=== PATIENT | female | born 1950 | race Caucasian/White ===

== ENCOUNTER 2016-11-17 08:42 | Outpatient (CLI) | payer MEDICARE, BC ==
[2016-11-17] MEDS ORDERED: IOPAMIDOL-300 100 ML VIAL IVP ONE (10:26)
== END 2016-11-17 08:43 | disposition home or self-care (01) ==
DX: C85.99 Non-Hodgkin lymphoma, unspecified, extranodal and solid organ sites (principal); R59.1 Generalized enlarged lymph nodes; R16.1 Splenomegaly, not elsewhere classified; R91.8 Other nonspecific abnormal finding of lung field
CPT/HCPCS: 36415; 71260; 74177; 82565; Q9967

== ENCOUNTER 2016-11-27 12:51 | Outpatient (CLI) | payer MEDICARE, BC | END 2016-11-27 12:52 | disposition home or self-care (01) | DX: C83.19 Mantle cell lymphoma, extranodal and solid organ sites (principal) ==

== ENCOUNTER 2016-11-30 10:01 | Day surgery (SDC) | payer MEDICARE, BC ==
[2016-11-30] MEDS ORDERED: LACTATED RINGERS 1,000 ML IV ONE ×2 (10:18→12:20)
[2016-11-30] MEDS ORDERED: ONDANSETRON 4 MG/2 ML VIAL IVP ONE (12:00)
[2016-11-30] MEDS ORDERED: MIDAZOLAM 2 MG/2 ML VIAL IVP ONE (12:00)
[2016-11-30] MEDS ORDERED: ceFAZolin 1 GM VIAL IV ONE (12:00)
[2016-11-30] MEDS ORDERED: PROPOFOL 200 MG/20 ML VIAL IVP ONE (12:00)
[2016-11-30] MEDS ORDERED: LIDOCAINE-MPF 2% 5 ML VIAL IM ONE (12:00)
[2016-11-30] MEDS ORDERED: fentaNYL 100 MCG/2 ML VIAL IVP ONE (12:00)
[2016-11-30] MEDS ORDERED: LIDOCAINE 1% 50 ML MDV SUBQ ONE (12:39)
[2016-11-30] MEDS ORDERED: BUPIVACAINE 0.5%-EPI 1:200000 PF 30 ML VIAL SUBQ ONE (12:39)
== END 2016-11-30 10:02 | disposition home or self-care (01) ==
PROC: 02HV33Z Insertion of Infusion Device into Superior Vena Cava, Percutaneous Approach (ICD-10-PCS; 2016-11-30)
PROC: B548ZZA Ultrasonography of Superior Vena Cava, Guidance (ICD-10-PCS; 2016-11-30)
PROC: 0JH60XZ Insertion of Tunneled Vascular Access Device into Chest Subcutaneous Tissue and Fascia, Open Approach (ICD-10-PCS; principal; 2016-11-30 11:10)
DX: C85.99 Non-Hodgkin lymphoma, unspecified, extranodal and solid organ sites (principal); Z88.0 Allergy status to penicillin; K21.9 Gastro-esophageal reflux disease without esophagitis; Z96.651 Presence of right artificial knee joint; Z87.891 Personal history of nicotine dependence; E66.9 Obesity, unspecified; Z68.37 Body mass index [BMI] 37.0-37.9, adult
CPT/HCPCS: 36561; 71010; C1788; J7120

== ENCOUNTER 2017-05-31 08:44 | Outpatient (CLI) | payer MEDICARE, BC ==
--- NOTE | 2017-06-01 09:24 | Nuclear Medicine Report ---
EXAM: RADIONUCLIDE VENTRICULOGRAM (MUGA) WITH EJECTION FRACTION CALCULATION EXAM DATE: 05/31/2017 09:36 AM. CLINICAL HISTORY: Lymphoma. Evaluate cardiac function related to chemotherapy. COMPARISON: CT 11/17/2016 TECHNIQUE: Patient's own red blood cells were labeled with 26.7 mCi technetium 99m sodium pertechneta te according to the department protocol. Following the radiolabeling procedure, equilibrium gated dyn amic imaging of the myocardium was acquired from standard projections. FINDINGS: The right and left ventricles contract in a normal segmental and global fashion. The restin g left ventricular ejection fraction is calculated to be 54%. This finding is confirmed with visual a nalysis. IMPRESSION: Normal MUGA study with ejection fraction 54%. [facility] Referring Provider Line: [phone] SITE ID: [id number]
== END 2017-05-31 08:45 | disposition home or self-care (01) ==
LOC: DI 08:44
PROVIDERS: ATTEND Internal Medicine Hematology & Oncology
DX: C85.90 Non-Hodgkin lymphoma, unspecified, unspecified site (principal)
CPT/HCPCS: 78472; A9512; A9538

== ENCOUNTER 2017-06-01 13:17 | Outpatient (CLI) | payer MEDICARE, BC | END 2017-06-01 13:18 | disposition home or self-care (01) | LOC: RT 13:17 | PROVIDERS: ATTEND Internal Medicine Hematology & Oncology | DX: C85.90 Non-Hodgkin lymphoma, unspecified, unspecified site (principal) | CPT/HCPCS: 94010 ==

== ENCOUNTER 2018-04-28 10:46 | Emergency (ER) | payer MEDICARE, BC ==
[2018-04-28 11:42] LABS: BILIRUBIN,URINE NEGATIVE (NEGATIVE); GLUCOSE, URINE (UA) NEGATIVE (NEGATIVE); KETONES,URINE (UA) NEGATIVE (NEGATIVE); LEUKOCYTE ESTERASE, URINE NEGATIVE (NEGATIVE); NITRITE,URINE NEGATIVE (NEGATIVE); OCCULT BLOOD,URINE TRACE-LYSE (NEGATIVE); PROTEIN,URINE TRACE mg/dL (NEGATIVE); UROBILINOGEN,URINE 0.2 (NORMAL) E.U./dL (NORMAL)
[2018-04-28 11:43] LABS: CLARITY,URINE CLEAR (CLEAR)
[2018-04-28 11:57] LABS: BASOPHILS % (AUTO) 0.7 %; EOSINOPHILS % (AUTO) 1.6 %; HGB - HEMOGLOBIN 9.6 g/dL (12.0-16.0); MEAN CORPUSCULAR HEMOGLOBIN 35.5 pg (27.0-31.0); MEAN CORPUSCULAR HGB CONC 34.9 g/dL (32.0-36.0); MEAN CORPUSCULAR VOLUME 101.7 fL (81.0-99.0); MEAN PLATELET VOLUME 8.2 fL (7.9-10.8); MONOCYTES % (AUTO) 9.1 %; NEUTROPHILS % (AUTO) 76.6 %; PLT - PLATELET COUNT 200 10^3/uL (130-450); RED BLOOD COUNT 2.69 10^6/uL (4.20-5.40); RED CELL DISTRIBUTION WIDTH 12.5 % (12.0-15.0); WHITE BLOOD COUNT 2.7 x10^3/uL (4.8-10.8)
[2018-04-28 12:08] LABS: ALBUMIN/GLOBULIN RATIO 0.8 (1.0-2.2); BILIRUBIN,TOTAL 0.6 mg/dL (0.2-1.0); CALCIUM 8.8 mg/dL (8.5-10.3); CREATININE 0.9 mg/dL (0.4-1.0); TOTAL PROTEIN 6.7 g/dL (6.7-8.2)
[2018-04-28 12:19] LABS: ABNORMAL LYMPHS % (MANUAL) 0 %; PLATELET ESTIMATE, MANUAL NORMAL (130-450,000) (NORMAL); PLATELET MORPHOLOGY NORMAL APPEARANCE (NORMAL); RBC MORPHOLOGY (MULTIPLE) 1+ HYPOCHROMASIA (NORMAL)
[2018-04-28 12:20] LABS: BAND NEUTROPHILS % (MANUAL) 10 %; DIFFERENTIAL COMMENT MANUAL DIFFERENTIAL; LYMPHOCYTES # (MANUAL) 0.3 10^3/uL (1.5-3.5); LYMPHOCYTES % (MANUAL) 11 %; METAMYELOCYTES % (MANUAL) 2 %; MONOCYTES # (MANUAL) 0.3 10^3/uL (0.0-1.0); NEUTROPHILS % (MANUAL) 65 %
--- NOTE | 2018-04-28 12:29 | ED Physician Documentation ---
History of Present Illness - Stated complaint Stated Complaint: FEVER - Chief complaint Chief Complaint: Fever - Additonal information Additional information: hx from pt and EMR 68 f mantle cell lymphoma stem cell transplant 9 m ago on q3m chemo last week seen in MAC and had elev LFT and dec PO and had RUQ sono and GI consult ordered, does not drink takes apap as needed but not excessively also chronic diarrhea and stool cx were neg now to ER with fever X 1 week tmax 101.9 slight cough continued NV and diarrhea no skin lesions no travel Review of Systems Constitutional: reports: Fever. denies: Chills Cardiac: denies: Chest pain / pressure Respiratory: reports: Cough. 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 HEENT: Cataracts, Tonsil/Adenoidectomy - Present Medications Home Medications: Ambulatory Orders Medication Instructions Recorded Confirmed Valacyclovir HCl [Valtrex] 500 mg PO BID 01/02/17 03/10/18 Loperamide [Imodium] 1 cap PO PRN PRN 09/16/17 03/10/18 raNITIdine [Zantac] 150 mg PO BID 09/17/17 03/10/18 B12/Levomefolate Calcium/B-6 1,000 mcg PO DAILY 12/10/17 03/10/18 [Iwkcs-Djgnzhpfzm-Kbgflbpam Tb] Cholecalciferol (Vitamin D3) 2,000 units PO DAILY 12/10/17 03/10/18 [Vitamin D3] - Allergies Allergies/Adverse Reactions: Allergies Allergy/AdvReac Type Severity Reaction Status Date / Time No Known Drug Allergies Allergy Verified 04/28/18 11:08 - Social History Does the pt smoke?: No Smoking Status: Never smoker Does the pt drink ETOH?: Yes Does the pt have substance abuse?: No - Immunizations Immunizations are current?: No Immunizations: TDAP >10years/unknown - POLST Patient has POLST: No PD ED PE NORMAL - Vitals Vital signs reviewed: Yes - General General: Alert and oriented X 3 - HEENT HEENT: PERRL, Ears normal - Neck Neck: Supple, no meningeal sign - Cardiac Cardiac: RRR - Respiratory Respiratory: No respiratory distress, Clear bilaterally - Abdomen Abdomen: Soft, Non tender - Derm Derm: Normal color, No rash, Other (small abrason sole R foot s infection, port site s erythema) - Extremities Extremities: No deformity, Normal ROM s pain - Neuro Neuro: Alert and oriented X 3 Results - Vitals Vitals: Vital Signs - 24 hr 04/28/18 04/28/18 11:03 16:16 Temperature 36.4 C L 37.0 C Heart Rate 67 81 Respiratory 18 14 Rate Blood Pressure 117/65 104/65 O2 Saturation 94 96 Oxygen O2 Source Room air - Labs Labs: Laboratory Tests 04/28/18 04/28/18 04/28/18 11:15 11:38 11:40 WBC 2.7 L RBC 2.69 L Hgb 9.6 L Hct 27.4 L MCV 101.7 H MCH 35.5 H MCHC 34.9 RDW 12.5 Plt Count 200 MPV 8.2 Neut # (Auto) Not Reportable Lymph # (Auto) Not Reportable [place] # (Auto) Not Reportable Eos # (Auto) Not Reportable Baso # (Auto) Not Reportable Absolute Nucleated RBC Not Reportable Total Counted 100 Band Neuts % (Manual) 10 Abnorm Lymph % (Manual) 0 Metamyelocytes % 2 H Nucleated RBC % Not Reportable Neutrophils # (Manual) 2.0 Lymphocytes # (Manual) 0.3 L Monocytes # (Manual) 0.3 Eosinophils # (Manual) 0.0 Basophils # (Manual) 0.0 Differential Comment MANUAL DIFFERENTIAL Manual Slide Review Indicated Platelet Estimate NORMAL (130-450,000) Platelet Morphology NORMAL APPEARANCE RBC Morph Micro Appear 1+ HYPOCHROMASIA Sodium Potassium Chloride Carbon Dioxide Anion Gap BUN Creatinine Estimated GFR (MDRD) Glucose Lactic Acid 0.8 Calcium Total Bilirubin AST ALT Alkaline Phosphatase Total Protein Albumin Globulin Albumin/Globulin Ratio Lipase Urine Color DARK YELLOW Urine Clarity CLEAR Urine pH 5.0 Ur Specific [place] 1.020 Urine Protein TRACE Urine Glucose (UA) NEGATIVE Urine Ketones NEGATIVE Urine Occult Blood TRACE-LYSE Urine Nitrite NEGATIVE Urine Bilirubin NEGATIVE Urine Urobilinogen 0.2 (NORMAL) Ur Leukocyte Esterase NEGATIVE Ur Microscopic Review NOT INDICATED Urine Culture Comments NOT INDICATED Acetaminophen 04/28/18 04/28/18 11:40 11:40 WBC RBC Hgb Hct MCV MCH MCHC RDW Plt Count MPV Neut # (Auto) Lymph # (Auto) [place] # (Auto) Eos # (Auto) Baso # (Auto) Absolute Nucleated RBC Total Counted Band Neuts % (Manual) Abnorm Lymph % (Manual) Metamyelocytes % Nucleated RBC % Neutrophils # (Manual) Lymphocytes # (Manual) Monocytes # (Manual) Eosinophils # (Manual) Basophils # (Manual) Differential Comment Manual Slide Review Platelet Estimate Platelet Morphology RBC Morph Micro Appear Sodium 135 Potassium 3.9 Chloride 101 Carbon Dioxide 23 Anion Gap 11.0 BUN 16 Creatinine 0.9 Estimated GFR (MDRD) 62 L Glucose 105 H Lactic Acid Calcium 8.8 Total Bilirubin 0.6 AST 98 H ALT 90 H Alkaline Phosphatase 357 H Total Protein 6.7 Albumin 3.0 L Globulin 3.7 Albumin/Globulin Ratio 0.8 L Lipase 35 Urine Color Urine Clarity Urine pH Ur Specific [place] Urine Protein Urine Glucose (UA) Urine Ketones Urine Occult Blood Urine Nitrite Urine Bilirubin Urine Urobilinogen Ur Leukocyte Esterase Ur Microscopic Review Urine Culture Comments Acetaminophen 12 - Rads (name of study) CXR Radiology: See rad report (unchanged from prior, no new airspace dz) ruq sono Radiology: See rad report (s/p son no acute process) PD MEDICAL DECISION MAKING - ED course ED course: chemo pt s/p stem cell transplant fever X 1 week ANC 2 no source found on exam and wup - port s infection/ulcer , no skin infection, no pna, no UTI, elev LFTs but no GB and neg RUQ sono blood cx pending will d/w onc re empiric ab unclear why elev LFTs - n ruq sono, therapeutic apap level, does not drink, could be adverse rxn to rituxan - will d/w onc as well d/w Dr Jones oncology - recommend no ab at this time as no source has been identified, wait on blood cultures, add c diff as that stool cx was not run last week with others, and for the elev LFTs he does not thin k 2/2 rituxan and rec pt follow up with GI consult as planned, no apap or EtOH - Sepsis Event Vital Signs: Vital Signs - 24 hr 04/28/18 04/28/18 11:03 16:16 Temperature 36.4 C L 37.0 C Heart Rate 67 81 Respiratory 18 14 Rate Blood Pressure 117/65 104/65 O2 Saturation 94 96 Oxygen O2 Source Room air Departure - Departure Disposition: 01 Home, Self Care Clinical Impression: Elevated LFTs Fever Qualifiers: Fever type: unspecified Qualified Code(s): R50.9 - Fever, unspecified Condition: Good Instructions: ED Fever Unconf Cause Follow-Up: Selena Ely MD [Primary Care Provider] - Valentín Jones MD [Physician No Access] - Comments: No source/cause for the fever has been identified on todays workup - no port infection, no pneumonia, no UTI, no liver abscess, no skin ulcer or infection. Blood cultures are running and should be resulted in a few days. Your liver function tests are still elevated - but it is unclear why - the ultrasound is fine, your gallbladder has been removed already, you do not take excessive tylenol and don't drink alcohol. I discussed everything with your oncologist Dr Jones - he advises not to start antibiotics unless the cultures are positive and that you follow up with GI as planned for further evaluation of the elevated liver tests. He also would like to run some more tests on the diarrhea so please collect a sample and bring it to the lab and the [facility] can submit the order for a c- difficile test as an outpatient. Avoid all tylenol and alcohol until the cause of the liver test abnormalities is figured out Also you are anemic again - this is not new but is a little worse than before and so follow up with Dr Jones/[facility] for another count in about a week is important Discharge Date/Time: 04/28/18 16:19
--- NOTE | 2018-04-28 14:01 | Ultrasound Report ---
Procedure Date: 04/28/2018 Accession Number: [id number] / [id number] Procedure: US - Abdomen Limited CPT Code: FULL RESULT: EXAM: Abdomen Limited DATE: 04/28/2018 1:24 PM CLINICAL HISTORY: Fever, elevated liver function tests, status post cholecystectomy. TECHNIQUE: Real time scanning by the hop trainer was saved static images reviewed COMPARISON: 11/17/2016 CT FINDINGS: Liver measures 17 cm longitudinally. 2 small echogenic foci are noted in the right lobe, most likely hemangiomas, one measuring 1.3 x 1 x 1.2 cm and the other 1.2 x 1 x 1 cm. Normal directional portal venous blood flow. Gallbladder is surgically absent. Common bile duct 8 mm. Right kidney 10.7 cm in length. Normal echotexture. Free fluid: None IMPRESSION: Status post cholecystectomy. No acute findings seen in the right upper quadrant.
--- NOTE | 2018-04-28 14:23 | XRAY Report ---
Procedure Date: 04/28/2018 Accession Number: [id number] / [id number] Procedure: XR - Chest 2 View X-Ray CPT Code: 63519 FULL RESULT: EXAM: CHEST RADIOGRAPHY EXAM DATE: 04/28/2018 01:56 PM. CLINICAL HISTORY: Fever cough. COMPARISON: 11/30/2016. TECHNIQUE: 2 views. FINDINGS: Lungs/Pleura: There is mild lower lobe airway thickening with mild pulmonary vascular congestion. These findings appear unchanged. There is improved aeration of the left mid lung with no new airspace disease. Negative for pleural effusion and pneumothorax. Mediastinum: The heart size is normal. There is a right-sided Port-A-Cath with tip at the cavoatrial junction. Other: None. IMPRESSION: No focal or new airspace disease to suggest pneumonia. Airway thickening could reflect chronic bronchial inflammation. [facility]
[2018-04-28 16:18] VITALS: BP 104/65
== END 2018-04-28 16:19 | disposition home or self-care (01) ==
LOC: ED 10:46
DX: R50.9 Fever, unspecified (principal); R94.5 Abnormal results of liver function studies; C83.10 Mantle cell lymphoma, unspecified site; Z79.899 Other long term (current) drug therapy; K21.9 Gastro-esophageal reflux disease without esophagitis
CPT/HCPCS: 36415; 71046; 76705; 80053; 80307; 81001; 81003; 83605; 83690; 85025; 87040; 87086; 96374; 99283

== ENCOUNTER 2018-05-05 11:27 | Inpatient (IN) | payer MEDICARE, BC ==
--- NOTE | 2018-05-05 12:12 | XRAY Report ---
Procedure Date: 05/05/2018 Accession Number: [id number] / [id number] Procedure: XR - Chest 2 View X-Ray CPT Code: 25157 FULL RESULT: EXAM: CHEST RADIOGRAPHY EXAM DATE: 05/05/2018 12:06 PM. CLINICAL HISTORY: SOA. COMPARISON: 04/28/2018. TECHNIQUE: 2 views. FINDINGS: Lungs/Pleura: Moderate increased bilateral lower lung infiltrates, right greater left and diffuse vascular and interstitial prominence. No pleural effusion. No pneumothorax. Mediastinum: Heart and mediastinal contours are unremarkable. Other: Stable central venous port. Degenerative disease of the spine redemonstrated. IMPRESSION: Moderate interval increased bilateral lower lung infiltrates, right greater left and diffuse vascular and interstitial prominence. [facility]
--- NOTE | 2018-05-05 12:40 | ED Physician Documentation ---
PD HPI DYSPNEA - Stated complaint Stated Complaint: SOA - Chief complaint Chief Complaint: Resp - History obtained from History obtained from: Patient, Friend - History of Present Illness Timing - onset: Other (She had an autologous stem cell transplant 10 mos ago at [facility] for Mantle Cell lymphoma. Had a slow improvement after with low blood counts, but was improving. Now with decline over 3 weeks with dyspnea. 1 week ago had low grade fevers to 101. Increasing dyspnea and used oxygen at home (son 's- he has cluster headaches). Had clear CXR last week and started coughing since, a dry cough.) Review of Systems Ten Systems: 10 systems reviewed and negative Constitutional: reports: Fever, Chills Ears: denies: Loss of hearing, Ear pain Nose: denies: Rhinorrhea / runny nose Throat: denies: Sore throat Cardiac: denies: Chest pain / pressure, Palpitations Respiratory: reports: Dyspnea, Cough GI: denies: Abdominal Pain, Nausea, Vomiting PD PAST MEDICAL HISTORY - Past Medical History Past Medical History: Yes Cardiovascular: None Respiratory: None Endocrine/Autoimmune: None GI: GERD, Chronic diarrhea : None HEENT: None Psych: None Musculoskeletal: None Derm: None Other Past Medical History: pt states she had a stem cell transplant 10 months ago for lymphoma, is anemic and feels her sob is from this. 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 HEENT: Cataracts, Tonsil/Adenoidectomy - Present Medications Home Medications: Ambulatory Orders Medication Instructions Recorded Confirmed Valacyclovir HCl [Valtrex] 500 mg PO BID 01/02/17 03/10/18 Loperamide [Imodium] 1 cap PO PRN PRN 09/16/17 03/10/18 raNITIdine [Zantac] 150 mg PO BID 09/17/17 03/10/18 B12/Levomefolate Calcium/B-6 1,000 mcg PO DAILY 12/10/17 03/10/18 [Kntdt-Zivuygelrv-Kavtzefip Tb] Cholecalciferol (Vitamin D3) 2,000 units PO DAILY 12/10/17 03/10/18 [Vitamin D3] - Allergies Allergies/Adverse Reactions: Allergies Allergy/AdvReac Type Severity Reaction Status Date / Time No Known Drug Allergies Allergy Verified 06/25/18 11:39 - Social History Does the pt smoke?: No Smoking Status: Former smoker Does the pt drink ETOH?: Yes Does the pt have substance abuse?: No - Immunizations Immunizations are current?: No Immunizations: TDAP >10years/unknown - POLST Patient has POLST: No PD ED PE NORMAL - Vitals Vital signs reviewed: Yes (hypoxic, low diastolic) - General General: Alert and oriented X 3, No acute distress - HEENT HEENT: PERRL, EOMI - Neck Neck: Supple, no meningeal sign, No bony TTP - Cardiac Cardiac: RRR, No murmur - Respiratory Respiratory: No respiratory distress, Other (diminished R base) - Abdomen Abdomen: Soft, Non tender - Back Back: No CVA TTP, No spinal TTP - Derm Derm: Normal color, Warm and dry - Extremities Extremities: No edema, No calf tenderness / cord - Neuro Neuro: Alert and oriented X 3, Normal speech - Psych Psych: Normal mood, Normal affect Results - Vitals Vitals: Vital Signs - 24 hr 05/05/18 05/05/18 05/05/18 11:35 11:43 12:02 Temperature 36.6 C Heart Rate 84 72 Respiratory 20 28 H Rate Blood Pressure 123/55 L 117/58 L O2 Saturation 85 L 93 92 Oxygen O2 Source Nasal cannula Oxygen Flow Rate 2 - EKG (time done) 1140 Rate: Rate (enter#) (74) Rhythm: NSR [place]: Normal Intervals: RBBB (incomplete) QRS: LVH Ischemia: Normal ST segments Computer interpretation: Agree with computer - Labs Labs: Laboratory Tests 05/05/18 05/05/18 05/05/18 12:22 12:22 12:22 WBC 1.9 L* RBC 2.37 L Hgb 8.1 L Hct 23.7 L MCV 100.0 H MCH 34.4 H MCHC 34.4 RDW 13.4 Plt Count 245 MPV 8.4 Neut # (Auto) Not Reportable Lymph # (Auto) Not Reportable [place] # (Auto) Not Reportable Eos # (Auto) Not Reportable Baso # (Auto) Not Reportable Absolute Nucleated RBC Not Reportable Total Counted 100 Band Neuts % (Manual) 15 H Abnorm Lymph % (Manual) 2 Metamyelocytes % 3 H Myelocytes % 1 H Nucleated RBC % Not Reportable Neutrophils # (Manual) 1.5 Lymphocytes # (Manual) 0.2 L Monocytes # (Manual) 0.1 Eosinophils # (Manual) 0.0 Basophils # (Manual) 0.0 Differential Comment MANUAL DIFFERENTIAL Manual Slide Review Indicated Platelet Estimate NORMAL (130-450,000) Platelet Morphology NORMAL APPEARANCE RBC Morph Micro Appear 1+ POLYCHROMASIA Sodium 138 Potassium 3.9 Chloride 105 Carbon Dioxide 22 Anion Gap 11.0 BUN 24 H Creatinine 1.0 Estimated GFR (MDRD) 55 L Glucose 123 H Lactic Acid Calcium 9.4 Total Bilirubin 0.9 AST 133 H ALT 136 H Alkaline Phosphatase 670 H Troponin I < 0.04 Total Protein 6.1 L Albumin 2.5 L Globulin 3.6 Albumin/Globulin Ratio 0.7 L Lipase 28 05/05/18 13:00 WBC RBC Hgb Hct MCV MCH MCHC RDW Plt Count MPV Neut # (Auto) Lymph # (Auto) [place] # (Auto) Eos # (Auto) Baso # (Auto) Absolute Nucleated RBC Total Counted Band Neuts % (Manual) Abnorm Lymph % (Manual) Metamyelocytes % Myelocytes % Nucleated RBC % Neutrophils # (Manual) Lymphocytes # (Manual) Monocytes # (Manual) Eosinophils # (Manual) Basophils # (Manual) Differential Comment Manual Slide Review Platelet Estimate Platelet Morphology RBC Morph Micro Appear Sodium Potassium Chloride Carbon Dioxide Anion Gap BUN Creatinine Estimated GFR (MDRD) Glucose Lactic Acid 0.7 Calcium Total Bilirubin AST ALT Alkaline Phosphatase Troponin I Total Protein Albumin Globulin Albumin/Globulin Ratio Lipase - Rads (name of study) 2v chest Radiology: EMP read contemporaneously (R>L bilateral lower infiltrates) PD MEDICAL DECISION MAKING - ED course ED course: 68yo woman with H/O SCXplant and now increasing weakness and cough/hypoxemia. Has bibasilar PNA. Also continues to have increased liver enzymes. Spoke with Dr Hodge for admit 1330 - Sepsis Event Vital Signs: Vital Signs - 24 hr 05/05/18 05/05/18 05/05/18 11:35 11:43 12:02 Temperature 36.6 C Heart Rate 84 72 Respiratory 20 28 H Rate Blood Pressure 123/55 L 117/58 L O2 Saturation 85 L 93 92 Oxygen O2 Source Nasal cannula Oxygen Flow Rate 2 Departure - Departure Disposition: 66 [facility] DC/Xfer Clinical Impression: Hypoxemia Pneumonia Qualifiers: Pneumonia type: due to unspecified organism Laterality: bilateral Lung location : lower lobe of lung Qualified Code(s): J18.1 - Lobar pneumonia, unspecified organism Condition: Serious
[2018-05-05] MEDS ORDERED: cefTRIAXone 1 GM in SODIUM CHLORIDE 0.9% MINIBAG 100 ML IV STA (12:44)
[2018-05-05] MEDS ORDERED: SODIUM CHLORIDE 0.9% 1,000 ML IV ONE (12:44)
[2018-05-05] MEDS ORDERED: AZITHROMYCIN INJ 500 MG in SODIUM CHLORIDE 0.9% 250 ML IV STA (12:44)
[2018-05-05 13:02] LABS: BASOPHILS % (AUTO) 0.5 %; HGB - HEMOGLOBIN 8.1 g/dL (12.0-16.0); LYMPHOCYTES % (AUTO) 10.2 %; MEAN CORPUSCULAR HEMOGLOBIN 34.4 pg (27.0-31.0); MEAN CORPUSCULAR HGB CONC 34.4 g/dL (32.0-36.0); MEAN PLATELET VOLUME 8.4 fL (7.9-10.8); MONOCYTES % (AUTO) 6.9 %; NEUTROPHILS % (AUTO) 81.4 %; PLT - PLATELET COUNT 245 10^3/uL (130-450); RED BLOOD COUNT 2.37 10^6/uL (4.20-5.40); RED CELL DISTRIBUTION WIDTH 13.4 % (12.0-15.0)
[2018-05-05 13:05] LABS: ALBUMIN 2.5 g/dL (3.2-5.5); ALBUMIN/GLOBULIN RATIO 0.7 (1.0-2.2); BILIRUBIN,TOTAL 0.9 mg/dL (0.2-1.0); CALCIUM 9.4 mg/dL (8.5-10.3); TOTAL PROTEIN 6.1 g/dL (6.7-8.2)
[2018-05-05 13:34] LABS: WHITE BLOOD COUNT 1.9 x10^3/uL (4.8-10.8)
[2018-05-05 13:39] LABS: ABNORMAL LYMPHS % (MANUAL) 2 %; BAND NEUTROPHILS % (MANUAL) 15 %; LYMPHOCYTES # (MANUAL) 0.2 10^3/uL (1.5-3.5); LYMPHOCYTES % (MANUAL) 6 %; METAMYELOCYTES % (MANUAL) 3 %; MONOCYTES # (MANUAL) 0.1 10^3/uL (0.0-1.0); MYELOCYTES % (MANUAL) 1 %; NEUTROPHILS # (MANUAL) 1.5 10^3/uL (1.5-6.6); NEUTROPHILS % (MANUAL) 66 %
[2018-05-05 13:40] LABS: DIFFERENTIAL COMMENT MANUAL DIFFERENTIAL; PLATELET ESTIMATE, MANUAL NORMAL (130-450,000) (NORMAL); PLATELET MORPHOLOGY NORMAL APPEARANCE (NORMAL)
--- NOTE | 2018-05-05 15:07 | HISTORY & PHYSICAL EXAMINATION ---
Chief Complaint - Chief Complaint Chief Complaint: shortness of breath, fatigue History of Present Illness - Admitted From Admitted From:: ED - History Obtained From Records Reviewed: yes History obtained from: chart review, patient Exam Limitations: none - History of Present Illness HPI Comment/Other: Lois Vidal is a 68-year old female with a past medical history of Mantle Cell lymphoma including colon lymphoma, chronic diarrhea and GERD. She had an autologous stem cell transplant 10 mos ago at [facility] for Mantle Cell lymphoma. She is under the care of Dr. Jones and last was seen on 04/21/18. Last week she was seen by Dr. Jones after reports of a fever up to 101 at home. A chest x- ray was completed and negative for PNA. She was not prescribed anything and over the weekend became profoundly sleepy. She literally slept all day and when she awoke, was very short of breath and noticed a dry cough. She called her son, who is prescribed home oxygen for chronic migraines and he brought over his O2 tank for her to use. After no improvement, he presented to the ED with a steady decline in health that began over 3 weeks ago. History - Past Medical History Cardiovascular: reports: None. denies: Congestive heart failure, High cholesterol Respiratory: reports: None Neuro: reports: None. denies: CVA Endocrine/Autoimmune: reports: None. denies: HyPERthyroidism, HyPOthyroidism GI: reports: GERD, Chronic diarrhea : reports: None. denies: Benign prostate hypertrophy HEENT: reports: None. denies: Chronic sinusitis Psych: reports: None, Anxiety Musculoskeletal: reports: None Derm: reports: None MRSA Hx?: No Other Past Medical History: pt states she had a stem cell transplant 10 months ago for lymphoma, is anemic and feels her sob is from this. - Past Surgical History General: reports: Cholecystectomy Ortho: reports: Knee replacement, Other /[employer]NF[employer]EMENT: reports: Tubal ligation HEENT: reports: Cataracts, Tonsil/Adenoidectomy Other past surgical history: autologous stem cell transplant on 07/16/2017. - Family & Social History Family History: Mother: , Father: Family History Comment/Other: The patient's father in an accident, and autopsy found pancreatic cancer, mother of pancreatic cancer. Living arrangement: At home Living Situation: With spouse/s.o., With family Social History Notes: The patient is retired from [employer] and worked in the [employer] department. 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 She is happily to her , Eric. She had 4 children. [place] and currently resides in [place]. She has a history of tobacco dependence from age [age] and denies alcohol or illicit drug use. She wishes to be a DNR. - Substance History Use: Uses substance without health or social issues: NONE Abuse: Recurrent use of substance despite neg consequences: NONE Dependence: Experiences withdrawal or developed tolerances: NONE - POLST Patient has POLST: No POLST Status: DNR Meds/Allgy - Home Medications Home Medications: Ambulatory Orders Medication Instructions Recorded Confirmed Valacyclovir HCl [Valtrex] 500 mg PO DAILY 01/02/17 05/05/18 Loperamide [Imodium] 2 mg PO PRN PRN 09/16/17 05/05/18 raNITIdine [Zantac] 150 mg PO DAILY 09/17/17 05/05/18 B12/Levomefolate Calcium/B-6 2 tab PO DAILY 12/10/17 05/05/18 [Xaeqi-Juutrbtipa-Zpsqpitpr Tb] Cholecalciferol (Vitamin D3) 2,000 units PO DAILY 12/10/17 05/05/18 [Vitamin D3] Naproxen Sodium [Aleve] 220 mg PO BID PRN 05/05/18 05/05/18 - Allergies Allergies/Adverse Reactions: Allergies Allergy/AdvReac Type Severity Reaction Status Date / Time ciprofloxacin [From Cipro] AdvReac Unknown Unverified 05/05/18 23:05 Review of Systems - Constitutional Constitutional: reports: Fatigue, Weakness, Poor appetite, Weight loss - Eyes Eyes: reports: Vision loss, Corrective lenses - Cardiovascular Cariovascular: reports: Decr. exercise tolerance - Respiratory Respiratory: reports: Cough, SOB with exertion - Gastrointestinal Gastrointestinal: reports: Diarrhea, Reflux/heartburn, Poor appetite - Genitourinary Genitourinary: reports: Other (previous UTI) - Psychiatric Psychiatric: reports: Anxiety - Hematologic/Lymphatic Hematologic/Lymphatic: reports: Anemia, Recurrent infections - All Other Systems All Other Systems: reports: Reviewed and negative Exam - Vital Signs Reviewed Vital Signs: Yes Vital Signs: Vital Signs x48h Temp Pulse Resp BP Pulse Ox 05/05/18 14:56 36.1 C L 76 20 124/76 91 L 05/05/18 13:57 70 18 109/51 L 94 - Physical Exam General Appearance: positive: No acute distress, Alert Eyes Bilateral: positive: Normal inspection, PERRL ENT: positive: ENT inspection nml, Pharyngeal erythema, Dry mucous membranes Neck: positive: Nml inspection, Thyroid nml, No JVD, Lymphadenopathy (R), Lymphadenopathy (L) Respiratory: positive: Chest non-tender, No respiratory distress, Other (mild crackles in bilateral bases.) Cardiovascular: positive: Regular rate & rhythm, No gallop, Systolic murmur, Decreased pulse(s) Peripheral Pulses: positive: 2+ Abdomen: positive: Non-tender, Nml bowel sounds, Hepatomegaly Back: positive: Nml inspection Skin: positive: No rash, Warm, Dry Extremities: positive: Non-tender, Full ROM, No pedal edema Neurologic/Psychiatric: positive: Oriented x3, CN's nml (2-12), Motor nml, Sensation nml, Depressed mood/affect Reflexes: Bicep (R): 3+, Bicep (L): 3+ Conclusion/Plan - Problem List (1) Pneumonia Conclusion/Plan: The patient was noted to be febrile at home with a reported temperature of ~[address] She saw Dr[address] Jones for this, a chest x-ray showed no infiltrates. She was sent back home without antibiotics. Now she presents with leukopenia, a non -productive cough, and profound hypoxia. She has been using her son's home oxygen to get some relief and has been on oxygen ever since that time. Upon arrival to the ED, the patient was noted to be 85% on room air. Plan: Continue Azithromycin/Rocephin IV that was started in the ED. Continue respiratory care, obtain a sputum sample. Qualifiers: Pneumonia type: due to unspecified organism Laterality: bilateral Lung location: lower lobe of lung Qualified Code(s): J18.1 - Lobar pneumonia, unspecified organism (2) Elevated LFTs Conclusion/Plan: As per oncology notes, the patient's LFTs have been steadily increasing and are very elevated today at AST-133, ALT-136, and an Alk [id number]. Plan: Recommend GI follow up after this acute illness. (3) Mantle cell lymphoma, spleen Conclusion/Plan: The patient first had a colonoscopy for diarrhea and a colon polyp was biopsied which showed carcinoma in November 2016. 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 She is under the care of Dr. Jones for her Rituxan/Treanda treatments, but also goes to [facility] and is post-stem cell transplant from 07/16/2017. Plan: We will alert Aleah Vivar of this admission and follow recommendations. - Lab Results Lab results reviewed: Yes Ephraim Bones: 05/05/18 12:22 05/05/18 12:22 - Diagnostic Imaging Results Diagnostic Imaging Results: positive: Prelim report reviewed, Final report reviewed - EKG Results EKG Interpreted Independently: Yes Core Measures - Anticipated LOS I expect patient to be DC'd or transferred within 96 hours.: Yes - DVT/VTE - Prophylaxis VTE/DVT Device ordered at admit?: Yes VTE/DVT Prophylaxis med ordered at admit?: Yes - Stroke - Rehab Assessment Rehab services assessment to be ordered?: Yes - AMI - Statin at Admit Aspirin Prescribed on Admit: Yes
[2018-05-05] MEDS ORDERED: IPRATROPIUM/ALBUTEROL 3 ML NEB INH PRN (15:10)
[2018-05-05] MEDS: guaiFENesin 600 MG TABLET PO SCH ×2 (15:35→21:23)
[2018-05-05] MEDS: methylPREDNISolone SUCCINATE 40 MG/ML VIAL IVP SCH ×2 (15:35→21:32)
[2018-05-05] MEDS: SODIUM CHLORIDE FLUSH 0.9% 10 ML SYRINGE IVP SCH (15:35)
[2018-05-05] MEDS: IPRATROPIUM/ALBUTEROL 3 ML NEB INH SCH (17:30)
[2018-05-05] MEDS: SODIUM CHLORIDE 0.9% 1,000 ML IV SCH (21:31)
[2018-05-05] MEDS ORDERED: CALCIUM CARBONATE CHEW 500 MG TABLET PO SCH (22:00)
[2018-05-05] MEDS ORDERED: LOPERAMIDE 2 MG CAPSULE PO PRN (23:28)
[2018-05-06] MEDS: CALCIUM CARBONATE CHEW 500 MG TABLET PO SCH ×3 (00:25→20:25)
[2018-05-06] MEDS: IPRATROPIUM/ALBUTEROL 3 ML NEB INH SCH ×4 (00:39→18:26)
[2018-05-06] MEDS: SODIUM CHLORIDE FLUSH 0.9% 10 ML SYRINGE IVP SCH ×3 (02:28→17:24)
[2018-05-06] MEDS: SODIUM CHLORIDE 0.9% 1,000 ML IV SCH ×2 (04:50→12:44)
[2018-05-06 05:56] LABS: BASOPHILS % (AUTO) 0.4 %; EOSINOPHILS % (AUTO) 0.3 %; HGB - HEMOGLOBIN 8.3 g/dL (12.0-16.0); LYMPHOCYTES # (AUTO) 0.1 10^3/uL (1.5-3.5); LYMPHOCYTES % (AUTO) 11.6 %; MEAN CORPUSCULAR HGB CONC 33.3 g/dL (32.0-36.0); MEAN CORPUSCULAR VOLUME 102.1 fL (81.0-99.0); MEAN PLATELET VOLUME 8.3 fL (7.9-10.8); MONOCYTES % (AUTO) 3.5 %; NEUTROPHILS % (AUTO) 84.2 %; PLT - PLATELET COUNT 198 10^3/uL (130-450); RED BLOOD COUNT 2.45 10^6/uL (4.20-5.40); RED CELL DISTRIBUTION WIDTH 13.4 % (12.0-15.0)
[2018-05-06 06:12] LABS: ALBUMIN 2.3 g/dL (3.2-5.5); ALBUMIN/GLOBULIN RATIO 0.7 (1.0-2.2); BILIRUBIN,TOTAL 0.7 mg/dL (0.2-1.0); CREATININE 0.9 mg/dL (0.4-1.0); TOTAL PROTEIN 5.8 g/dL (6.7-8.2)
[2018-05-06 06:14] LABS: WHITE BLOOD COUNT 1.2 x10^3/uL (4.8-10.8)
[2018-05-06] MEDS: methylPREDNISolone SUCCINATE 40 MG/ML VIAL IVP SCH ×3 (06:21→21:02)
[2018-05-06 06:48] LABS: PLATELET ESTIMATE, MANUAL NORMAL (130-450,000) (NORMAL); PLATELET MORPHOLOGY NORMAL APPEARANCE (NORMAL); RBC MORPHOLOGY (MULTIPLE) 1+ OVALOCYTES (NORMAL)
[2018-05-06] MEDS: NAPROXEN 250 MG TABLET PO PRN ×2 (10:13→21:02)
[2018-05-06] MEDS: guaiFENesin 600 MG TABLET PO SCH ×2 (10:13→20:25)
[2018-05-06] MEDS: cefTRIAXone 1 GM in SODIUM CHLORIDE 0.9% MINIBAG 100 ML IV SCH (10:14)
[2018-05-06] MEDS: AZITHROMYCIN INJ 500 MG in SODIUM CHLORIDE 0.9% 250 ML IV SCH (10:15)
[2018-05-06] MEDS: POLYETHYLENE GLYCOL 3350 17 GM PACKET PO SCH (10:17)
[2018-05-06 10:42] LABS: BILIRUBIN,URINE NEGATIVE (NEGATIVE); GLUCOSE, URINE (UA) NEGATIVE (NEGATIVE); KETONES,URINE (UA) NEGATIVE (NEGATIVE); LEUKOCYTE ESTERASE, URINE NEGATIVE (NEGATIVE); NITRITE,URINE NEGATIVE (NEGATIVE); OCCULT BLOOD,URINE NEGATIVE (NEGATIVE); PH,URINE 5.5 PH (5.0-7.5); PROTEIN,URINE NEGATIVE (NEGATIVE); UROBILINOGEN,URINE 0.2 (NORMAL) E.U./dL (NORMAL)
[2018-05-06 10:43] LABS: CLARITY,URINE CLEAR (CLEAR)
[2018-05-06] MEDS ORDERED: IOPAMIDOL-300 50 ML VIAL ONE (12:43)
[2018-05-06] MEDS ORDERED: IOPAMIDOL-300 100 ML VIAL ONE (12:43)
[2018-05-06] MEDS: FILGRASTIM-SNDZ 300 MCG/0.5 ML SYRINGE SUBQ SCH (12:44)
[2018-05-06] MEDS ORDERED: IOPAMIDOL-300 100 ML VIAL IVP ONE (13:25)
--- NOTE | 2018-05-06 14:00 | CT Report ---
Procedure Date: 05/06/2018 Accession Number: [id number] / [id number] Procedure: CT - Chest W/ CPT Code: FULL RESULT: EXAM: Chest W/ DATE: 05/06/2018 1:26 PM CLINICAL HISTORY: sob COMPARISON: 11/17/2016 TECHNIQUE: Routine helical CT imaging was performed through the chest. IV contrast: 100 mL Isovue 300 Reconstructions: Coronal and sagittal. In accordance with CT protocol optimization, one or more of the following dose reduction techniques were utilized for this exam: automated exposure control, adjustment of mA and/or KV based on patient size, or use of iterative reconstructive technique. FINDINGS: Lungs/Pleura: Bilateral predominantly perihilar interstitial opacities, which may reflect edema or atypical infection. No focal infiltrate. No effusion or pneumothorax. Mediastinum: Resolution of previously seen adenopathy. Mild atherosclerotic disease of the arch. Bones: Degenerative changes. Visualized Abdomen: Please see separate CT. Other: None. IMPRESSION: Bilateral predominantly perihilar interstitial opacities, which may reflect pulmonary edema or an atypical infection. RADIA
--- NOTE | 2018-05-06 14:03 | CT Report ---
Procedure Date: 05/06/2018 Accession Number: [id number] / [id number] Procedure: CT - Abdomen/Pelvis W/ CPT Code: FULL RESULT: EXAM: Abdomen/Pelvis W/ DATE: 05/06/2018 1:26 PM CLINICAL HISTORY: discomfortable, colon lymphoma COMPARISON: 11/17/2016 TECHNIQUE: Routine helical CT imaging was performed through the abdomen and pelvis. IV contrast: 100 mL Isovue 300. Enteric contrast: None. Reconstructions: Coronal and sagittal. In accordance with CT protocol optimization, one or more of the following dose reduction techniques were utilized for this exam: automated exposure control, adjustment of mA and/or KV based on patient size, or use of iterative reconstructive technique. FINDINGS: Lung Bases: Please see separate CT. Liver: Normal. No masses. Gallbladder/Bile Ducts: Unremarkable. Spleen: Normal. Pancreas: Normal. Adrenal Glands: Normal. Kidneys: Normal. No masses or hydronephrosis. Peritoneal Cavity/Bowel: Normal. No free fluid, free air or adenopathy. Resolution of previously seen retroperitoneal adenopathy. No masses or acute inflammatory process. The appendix is well visualized and normal. Pelvic Organs: The previously seen retroperitoneal adenopathy has resolved. Colonic diverticulosis, without CT evidence of diverticulitis. Vasculature: No aneurysms or other significant abnormality. Bones: Degenerative changes. Other: None. IMPRESSION: Resolution of previously seen adenopathy. No evidence of bowel obstruction or perforation. Normal appendix. RADIA
[2018-05-06] MEDS ORDERED: SODIUM CHLORIDE 0.9% 1,000 ML IV SCH (14:49)
--- NOTE | 2018-05-06 17:20 | PROVIDER PROGRESS NOTE ---
Subjective - Prog Note Date Prog Note Date: 05/06/18 - Subjective Pt reports feeling: Improved Subjective: pt report she did not have more fever since admitted. denies chest pain. Current Medications - Current Medications Current Medications: Active Medications Albuterol/Ipratropium (Duoneb) 3 ml INH Q4HR PRN PRN Reason: Wheezing Albuterol/Ipratropium (Duoneb) 3 ml INH RTTID [facility] Last Admin: 05/06/18 13:55 Dose: 3 ml Calcium Carbonate/Glycine (Tums) 500 mg PO BID [facility] Last Admin: 05/06/18 10:13 Dose: 500 mg Cholecalciferol (Vitamin D3) 2,000 unit PO DAILY [facility] Filgrastim (Zarxio) 300 mcg SUBQ DAILY [facility] Stop: 05/10/18 09:01 Last Admin: 05/06/18 12:44 Dose: 300 mcg Furosemide (Lasix Inj 20mg Vial) 20 mg IVP DAILY [facility] Guaifenesin (Mucinex) 600 mg PO BID [facility] Last Admin: 05/06/18 10:13 Dose: Not Given Azithromycin 500 mg/ Sodium (Chloride) 250 mls @ 250 mls/hr IV DAILY [facility] Last Infusion: 05/06/18 14:12 Dose: Infused Ceftriaxone Sodium 1 gm/ (Sodium Chloride) 100 mls @ 200 mls/hr IV DAILY [facility] Last Infusion: 05/06/18 14:12 Dose: Infused Loperamide HCl (Imodium) 2 mg PO PRN PRN PRN Reason: Diarrhea Methylprednisolone (Solu-Medrol (40mg Vial)) 40 mg IVP TID [facility] Last Admin: 05/06/18 14:12 Dose: 40 mg Naproxen (Naprosyn) 250 mg PO BID PRN PRN Reason: PAIN Last Admin: 05/06/18 10:13 Dose: 250 mg Non-Formulary Medication (B12/Levomefolate Calcium/B-6 [Lmthf-Pyridoxine- Cyanocoba Tb]) 2 tab PO DAILY [facility] Polyethylene Glycol (Miralax) 17 gm PO DAILY [facility] Last Admin: 05/06/18 10:17 Dose: 17 gm Ranitidine HCl (Zantac) 150 mg PO DAILY [facility] Last Admin: 05/06/18 10:17 Dose: 150 mg Sodium Chloride (Normal Saline Flush 0.9%) 10 ml IVP PRN PRN PRN Reason: NEEDED PER PROVIDER ORDERS Sodium Chloride (Normal Saline Flush 0.9%) 10 ml IVP 0100,0900,1700 [facility] Last Admin: 05/06/18 10:18 Dose: Not Given Valacyclovir HCl (Valtrex) 500 mg PO DAILY [facility] Valacyclovir HCl [Valtrex] 500 mg PO DAILY 01/02/17 Loperamide [Imodium] 2 mg PO PRN PRN 09/16/17 raNITIdine [Zantac] 150 mg PO DAILY 09/17/17 B12/Levomefolate Calcium/B-6 [Exuyn-Bugwvolabj-Dtvgpepke Tb] 2 tab PO DAILY Cholecalciferol (Vitamin D3) [Vitamin D3] 2,000 units PO DAILY 12/10/17 Naproxen Sodium [Aleve] 220 mg PO BID PRN 05/05/18 Objective - Vital Signs/Intake & Output Reviewed Vital Signs: Yes Vital Signs: Vital Signs x48h Temp Pulse Pulse Resp BP Pulse Ox 05/06/18 15:59 36.4 C L 69 24 117/53 L 96 05/06/18 13:55 79 30 H 05/06/18 11:45 36.4 C L 63 18 118/53 L 94 Intake & Output: Intake & Output 05/03/18 05/04/18 05/05/18 05/06/18 23:59 23:59 23:59 23:59 Intake Total 1750 3172.083 Balance 1750 3172.083 - Objective General Appearance: positive: No acute distress, Alert. negative: Lethargic Eyes Bilateral: positive: Normal inspection, PERRL, No lid inflammation, Conjunctivae nml ENT: positive: ENT inspection nml, Pharynx nml, No signs of dehydration. negative: Purulent nasal drainage, Pharyngeal erythema, Oral lesions Neck: positive: Nml inspection, Thyroid nml, No JVD, Trachea midline. negative : Thyromegaly, Lymphadenopathy (R), Lymphadenopathy (L), Stiff neck, Swelling/ bruising, Tracheal deviation Respiratory: positive: Chest non-tender, No respiratory distress, Breath sounds nml. negative: Wheezes, Rales, Rhonchi Cardiovascular: positive: Regular rate & rhythm, No murmur, No gallop. negative : Irregularly irregular, Extrasystoles, Tachycardia, Bradycardia, JVD present, Systolic murmur, Diastolic murmur Peripheral Pulses: 2+ Radial (R), 2+ Radial (L), 2+ Dorsalis pedis (R), 2+ Dorsalis pedis (L) Abdomen: positive: Non-tender, No organomegaly, Nml bowel sounds, No distention. negative: Tenderness, Guarding, Rebound Back: positive: Nml inspection. negative: CVA tenderness (R), CVA tenderness (L ) Skin: positive: Color nml, No rash, Warm, Dry. negative: Cyanosis, Diaphoresis , Pallor Extremities: positive: Non-tender, Full ROM, Nml appearance. negative: Calf tenderness, Joint swelling, London's sign/cords Neurologic/Psychiatric: positive: Oriented x3, Motor nml, Sensation nml, Mood/ affect nml. negative: Weakness, Sensory loss, Facial droop, Slurred/abnml speech, Depressed mood/affect - Lab Results Fish Bones: 05/06/18 05:21 05/06/18 05:21 Other Labs: Lab Results x24hrs 05/06/18 05/06/18 05/06/18 Range/Units 08:00 05:21 05:21 WBC (4.8-10.8) x10^3/uL RBC (4.20-5.40) 10^6/uL Hgb (12.0-16.0) g/dL Hct (37.0-47.0) % MCV (81.0-99.0) fL MCH (27.0-31.0) pg MCHC (32.0-36.0) g/dL RDW (12.0-15.0) % Plt Count (130-450) 10^3/uL MPV (7.9-10.8) fL Neut # (Auto) (1.5-6.6) 10^3/uL Lymph # (Auto) (1.5-3.5) 10^3/uL Childress # (Auto) (0.0-1.0) 10^3/uL Eos # (Auto) (0.0-0.7) 10^3/uL Baso # (Auto) (0.0-0.1) 10^3/uL Absolute Nucleated RBC x10^3/uL Nucleated RBC % /100WBC Manual Slide Review Platelet Estimate (NORMAL) Platelet Morphology (NORMAL) RBC Morph Micro Appear (NORMAL) Sodium 141 (135-145) mmol/L Potassium 4.6 (3.5-5.0) mmol/L Chloride 112 H (101-111) mmol/L Carbon Dioxide 21 (21-32) mmol/L Anion Gap 8.0 (6-13) BUN 27 H (6-20) mg/dL Creatinine 0.9 (0.4-1.0) mg/dL Estimated GFR (MDRD) 62 L (>89) Glucose 152 H (70-100) mg/dL Calcium 9.0 (8.5-10.3) mg/dL Magnesium 2.0 (1.7-2.8) mg/dL Total Bilirubin 0.7 (0.2-1.0) mg/dL GGT 179 H (8-38) IU/L AST 76 H (10-42) IU/L ALT 102 H (10-60) IU/L Alkaline Phosphatase 551 H (42-121) IU/L Total Protein 5.8 L (6.7-8.2) g/dL Albumin 2.3 L (3.2-5.5) g/dL Globulin 3.5 (2.1-4.2) g/dL Albumin/Globulin Ratio 0.7 L (1.0-2.2) TSH 0.87 (0.34-5.60) uIU/mL Urine Color YELLOW Urine Clarity CLEAR (CLEAR) Urine pH 5.5 (5.0-7.5) PH Ur Specific Randolph 1.025 (1.002-1.030) Urine Protein NEGATIVE (NEGATIVE) mg/dL Urine Glucose (UA) NEGATIVE (NEGATIVE) mg/dL Urine Ketones NEGATIVE (NEGATIVE) mg/dL Urine Occult Blood NEGATIVE (NEGATIVE) Urine Nitrite NEGATIVE (NEGATIVE) Urine Bilirubin NEGATIVE (NEGATIVE) Urine Urobilinogen 0.2 (NORMAL) (NORMAL) E.U./dL Ur Leukocyte Esterase NEGATIVE (NEGATIVE) Ur Microscopic Review NOT INDICATED Urine Culture Comments NOT INDICATED 05/06/18 Range/Units 05:21 WBC 1.2 L* (4.8-10.8) x10^3/uL RBC 2.45 L (4.20-5.40) 10^6/uL Hgb 8.3 L (12.0-16.0) g/dL Hct 25.0 L (37.0-47.0) % MCV 102.1 H (81.0-99.0) fL MCH 34.0 H (27.0-31.0) pg MCHC 33.3 (32.0-36.0) g/dL RDW 13.4 (12.0-15.0) % Plt Count 198 (130-450) 10^3/uL MPV 8.3 (7.9-10.8) fL Neut # (Auto) 1.0 L (1.5-6.6) 10^3/uL Lymph # (Auto) 0.1 L (1.5-3.5) 10^3/uL Childress # (Auto) 0.0 (0.0-1.0) 10^3/uL Eos # (Auto) 0.0 (0.0-0.7) 10^3/uL Baso # (Auto) 0.0 (0.0-0.1) 10^3/uL Absolute Nucleated RBC 0.01 x10^3/uL Nucleated RBC % 0.6 /100WBC Manual Slide Review Indicated Platelet Estimate NORMAL (130-450,000) (NORMAL) Platelet Morphology NORMAL APPEARANCE (NORMAL) RBC Morph Micro Appear 1+ OVALOCYTES (NORMAL) Sodium (135-145) mmol/L Potassium (3.5-5.0) mmol/L Chloride (101-111) mmol/L Carbon Dioxide (21-32) mmol/L Anion Gap (6-13) BUN (6-20) mg/dL Creatinine (0.4-1.0) mg/dL Estimated GFR (MDRD) (>89) Glucose (70-100) mg/dL Calcium (8.5-10.3) mg/dL Magnesium (1.7-2.8) mg/dL Total Bilirubin (0.2-1.0) mg/dL GGT (8-38) IU/L AST (10-42) IU/L ALT (10-60) IU/L Alkaline Phosphatase (42-121) IU/L Total Protein (6.7-8.2) g/dL Albumin (3.2-5.5) g/dL Globulin (2.1-4.2) g/dL Albumin/Globulin Ratio (1.0-2.2) TSH (0.34-5.60) uIU/mL Urine Color Urine Clarity (CLEAR) Urine pH (5.0-7.5) PH Ur Specific Randolph (1.002-1.030) Urine Protein (NEGATIVE) mg/dL Urine Glucose (UA) (NEGATIVE) mg/dL Urine Ketones (NEGATIVE) mg/dL Urine Occult Blood (NEGATIVE) Urine Nitrite (NEGATIVE) Urine Bilirubin (NEGATIVE) Urine Urobilinogen (NORMAL) E.U./dL Ur Leukocyte Esterase (NEGATIVE) Ur Microscopic Review Urine Culture Comments ABX Reporting Has patient been on IV antibiotics over the past 48 hours?: Yes Assessment/Plan - Problem List (1) Pneumonia Impression: (1) Pneumonia Conclusion/Plan: 05/06 pt's WBC is 1.2, CT of chest reveals bilateral pulmonary edema and pneumonia Continue Azithromycin/Rocephin IV start low dosage of IV Lasix follow blood culture daily lab monitor The patient was noted to be febrile at home with a reported temperature of ~[address] at [address] She saw Dr. Jones for this, a chest x-ray showed no infiltrates. She was sent back home without antibiotics. Now she presents with leukopenia, a non -productive cough, and profound hypoxia. She has been using her son's home oxygen to get some relief and has been on oxygen ever since that time. Upon arrival to the ED, the patient was noted to be 85% on room air. Plan: Continue Azithromycin/Rocephin IV that was started in the ED. Continue respiratory care, obtain a sputum sample. (2) Elevated LFTs Conclusion/Plan: pt had US in ER, unremarkable. pt had status posf of stem cell transplant, and lymphoma. follow up out-pt GI As per oncology notes, the patient's LFTs have been steadily increasing and are very elevated today at AST-133, ALT-136, and an Alk phos-[id number]. Plan: Recommend GI follow up after this acute illness. (3) Mantle cell lymphoma, spleen Conclusion/Plan: oncology department CASH ANALYST consulted for pt, and recommend CT of chest and abdomen for pt and filgrastim for 5 days, will follow up follow up pt's oncologist as out-pt The patient first had a colonoscopy for diarrhea and a colon polyp was biopsied which showed carcinoma in November 2016. 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 She is under the care of Dr. Jones for her Rituxan/Treanda treatments, but also goes to [facility] and is post-stem cell transplant from 07/16/2017. Plan: We will alert Aleah Ghazala of this admission and follow recommendations. (4) lymphocytopenia unknown etiology, pt had hx of lymphoma, status post of stem cell transplant. neuphopenia precaution filgrastim for 5 days, per CASH ANALYST oncologist recommendation continue treatment with antibiotics. Qualifiers: Pneumonia type: due to unspecified organism Laterality: bilateral Lung location: lower lobe of lung Qualified Code(s): J18.1 - Lobar pneumonia, unspecified organism
[2018-05-06] MEDS: FUROSEMIDE 20 MG/2 ML VIAL IVP SCH (17:24)
[2018-05-07] MEDS: SODIUM CHLORIDE FLUSH 0.9% 10 ML SYRINGE IVP SCH ×3 (03:54→15:44)
[2018-05-07] MEDS ORDERED: SODIUM CHLORIDE FLUSH 0.9% 10 ML SYRINGE IVP PRN (05:30)
[2018-05-07] MEDS: methylPREDNISolone SUCCINATE 40 MG/ML VIAL IVP SCH ×2 (05:51→14:31)
[2018-05-07 06:19] LABS: BASOPHILS % (AUTO) 0.3 %; HGB - HEMOGLOBIN 7.7 g/dL (12.0-16.0); LYMPHOCYTES % (AUTO) 4.1 %; MEAN CORPUSCULAR HEMOGLOBIN 33.6 pg (27.0-31.0); MEAN CORPUSCULAR HGB CONC 33.3 g/dL (32.0-36.0); MEAN CORPUSCULAR VOLUME 100.9 fL (81.0-99.0); MEAN PLATELET VOLUME 8.6 fL (7.9-10.8); NEUTROPHILS % (AUTO) 86.6 %; PLT - PLATELET COUNT 208 10^3/uL (130-450); RED CELL DISTRIBUTION WIDTH 13.5 % (12.0-15.0); WHITE BLOOD COUNT 3.9 x10^3/uL (4.8-10.8)
[2018-05-07 06:23] LABS: ALBUMIN 2.1 g/dL (3.2-5.5); ALBUMIN/GLOBULIN RATIO 0.7 (1.0-2.2); BILIRUBIN,TOTAL 0.5 mg/dL (0.2-1.0); CALCIUM 9.4 mg/dL (8.5-10.3); CREATININE 1.1 mg/dL (0.4-1.0); TOTAL PROTEIN 5.3 g/dL (6.7-8.2)
[2018-05-07 06:35] LABS: ABNORMAL LYMPHS % (MANUAL) 0 %
[2018-05-07 06:55] LABS: BAND NEUTROPHILS % (MANUAL) 18 %; LYMPHOCYTES # (MANUAL) 0.4 10^3/uL (1.5-3.5); LYMPHOCYTES % (MANUAL) 9 %; MONOCYTES # (MANUAL) 0.4 10^3/uL (0.0-1.0); NEUTROPHILS # (MANUAL) 3.2 10^3/uL (1.5-6.6); NEUTROPHILS % (MANUAL) 63 %
[2018-05-07 06:56] LABS: DIFFERENTIAL COMMENT MANUAL DIFFERENTIAL; PLATELET ESTIMATE, MANUAL NORMAL (130-450,000) (NORMAL); RBC MORPHOLOGY (MULTIPLE) NORMAL APPEARANCE (NORMAL)
[2018-05-07 08:29] LABS: MEAN RETIC VALUE 113.9; RED BLOOD COUNT 2.25 10^6/uL (4.20-5.40)
[2018-05-07 09:02] LABS: % IRON SATURATION 56 % (20-50); IRON 74 ug/dL (28-170); TOTAL IRON BINDING CAPACITY 132 ug/dL (250-450); TRANSFERRIN 94 mg/dL (192-382)
[2018-05-07] MEDS: cefTRIAXone 1 GM in SODIUM CHLORIDE 0.9% MINIBAG 100 ML IV SCH (09:36)
[2018-05-07] MEDS: CHOLECALCIFEROL 1,000 UNIT TABLET PO SCH (09:54)
[2018-05-07] MEDS: valACYclovir 500 MG TABLET PO SCH (09:55)
[2018-05-07] MEDS: guaiFENesin 600 MG TABLET PO SCH ×2 (09:55→20:15)
[2018-05-07] MEDS: CALCIUM CARBONATE CHEW 500 MG TABLET PO SCH ×2 (09:55→20:15)
[2018-05-07] MEDS: POLYETHYLENE GLYCOL 3350 17 GM PACKET PO SCH (09:57)
[2018-05-07] MEDS: B6 PO SCH (09:58)
[2018-05-07] MEDS: B12 PO SCH (09:58)
[2018-05-07] MEDS: LEVOMEFOLATE CALCIUM PO SCH (09:58)
[2018-05-07] MEDS: FUROSEMIDE 20 MG/2 ML VIAL IVP SCH (10:25)
[2018-05-07] MEDS: FILGRASTIM-SNDZ 300 MCG/0.5 ML SYRINGE SUBQ SCH (10:25)
[2018-05-07] MEDS: AZITHROMYCIN INJ 500 MG in SODIUM CHLORIDE 0.9% 250 ML IV SCH (10:27)
[2018-05-07] MEDS: SODIUM CHLORIDE FLUSH 0.9% 10 ML SYRINGE IVP PRN (14:31)
--- NOTE | 2018-05-07 15:06 | PROVIDER PROGRESS NOTE ---
Subjective - Prog Note Date Prog Note Date: 05/07/18 - Subjective Pt reports feeling: Improved Subjective: pt report he feel some better today, no CP, fever, chill, cough. Current Medications - Current Medications Current Medications: Active Medications Albuterol/Ipratropium (Duoneb) 3 ml INH Q4HR PRN PRN Reason: Wheezing Calcium Carbonate/Glycine (Tums) 500 mg PO BID [facility] Last Admin: 05/07/18 09:55 Dose: 500 mg Cholecalciferol (Vitamin D3) 2,000 unit PO DAILY [facility] Last Admin: 05/07/18 09:54 Dose: 2,000 unit Filgrastim (Zarxio) 300 mcg SUBQ DAILY [facility] Stop: 05/10/18 09:01 Last Admin: 05/07/18 10:25 Dose: 300 mcg Furosemide (Lasix Inj 20mg Vial) 20 mg IVP DAILY [facility] Last Admin: 05/07/18 10:25 Dose: 20 mg Guaifenesin (Mucinex) 600 mg PO BID [facility] Last Admin: 05/07/18 09:55 Dose: 600 mg Heparin Sodium (Beef Lung) () 30 - 50 unit IVP PRN PRN PRN Reason: Port Protocol (<24 hours) Last Admin: 05/07/18 14:31 Dose: 30 unit Azithromycin 500 mg/ Sodium (Chloride) 250 mls @ 250 mls/hr IV DAILY [facility] Last Infusion: 05/07/18 11:27 Dose: Infused Ceftriaxone Sodium 1 gm/ (Sodium Chloride) 100 mls @ 200 mls/hr IV DAILY [facility] Last Infusion: 05/07/18 10:06 Dose: Infused Loperamide HCl (Imodium) 2 mg PO PRN PRN PRN Reason: Diarrhea Methylprednisolone (Solu-Medrol (40mg Vial)) 40 mg IVP TID [facility] Last Admin: 05/07/18 14:31 Dose: 40 mg Naproxen (Naprosyn) 250 mg PO BID PRN PRN Reason: PAIN Last Admin: 05/06/18 21:02 Dose: 250 mg Non-Formulary Medication (B12/Levomefolate Calcium/B-6 [Lmthf-Pyridoxine- Cyanocoba Tb]) 2 tab PO DAILY [facility] Last Admin: 05/07/18 09:58 Dose: Not Given Polyethylene Glycol (Miralax) 17 gm PO DAILY [facility] Last Admin: 05/07/18 09:57 Dose: Not Given Ranitidine HCl (Zantac) 150 mg PO DAILY [facility] Last Admin: 05/07/18 09:55 Dose: 150 mg Sodium Chloride (Normal Saline Flush 0.9%) 10 ml IVP PRN PRN PRN Reason: NEEDED PER PROVIDER ORDERS Last Admin: 05/07/18 14:31 Dose: 10 ml Sodium Chloride (Normal Saline Flush 0.9%) 10 ml IVP 0100,0900,1700 [facility] Last Admin: 05/07/18 09:56 Dose: 10 ml Sodium Chloride (Normal Saline Flush 0.9%) 20 ml IVP PRN PRN PRN Reason: After Blood Draw Last Admin: 05/07/18 05:51 Dose: 20 ml Valacyclovir HCl (Valtrex) 500 mg PO DAILY [facility] Last Admin: 05/07/18 09:55 Dose: 500 mg Valacyclovir HCl [Valtrex] 500 mg PO DAILY 01/02/17 Loperamide [Imodium] 2 mg PO PRN PRN 09/16/17 raNITIdine [Zantac] 150 mg PO DAILY 09/17/17 B12/Levomefolate Calcium/B-6 [Osglf-Tieqrehzyf-Fhfuldcdf Tb] 2 tab PO DAILY Cholecalciferol (Vitamin D3) [Vitamin D3] 2,000 units PO DAILY 12/10/17 Naproxen Sodium [Aleve] 220 mg PO BID PRN 05/05/18 Objective - Vital Signs/Intake & Output Reviewed Vital Signs: Yes Vital Signs: Vital Signs x48h Temp Pulse Resp BP Pulse Ox 05/07/18 08:00 36.4 C L 68 18 116/58 L 93 Intake & Output: Intake & Output 05/04/18 05/05/18 05/06/18 05/07/18 23:59 23:59 23:59 23:59 Intake Total 1750 3632.083 1300 Output Total 900 Balance 1750 2732.083 1300 - Objective General Appearance: positive: No acute distress, Alert. negative: Lethargic Eyes Bilateral: positive: Normal inspection, PERRL, No lid inflammation, Conjunctivae nml ENT: positive: ENT inspection nml, Pharynx nml, No signs of dehydration. negative: Purulent nasal drainage, Pharyngeal erythema, Oral lesions Neck: positive: Nml inspection, Thyroid nml, No JVD, Trachea midline. negative : Thyromegaly, Lymphadenopathy (R), Lymphadenopathy (L), Stiff neck, Swelling/ bruising, Tracheal deviation Respiratory: positive: Chest non-tender, No respiratory distress, Breath sounds nml. negative: Wheezes, Rales, Rhonchi Cardiovascular: positive: Regular rate & rhythm, No murmur, No gallop. negative : Irregularly irregular, Extrasystoles, Tachycardia, Bradycardia, JVD present, Systolic murmur, Diastolic murmur Peripheral Pulses: 2+ Radial (R), 2+ Radial (L), 2+ Dorsalis pedis (R), 2+ Dorsalis pedis (L) Abdomen: positive: Non-tender, No organomegaly, Nml bowel sounds, No distention. negative: Tenderness, Guarding, Rebound Back: positive: Nml inspection. negative: CVA tenderness (R), CVA tenderness (L ) Skin: positive: Color nml, No rash, Warm, Dry. negative: Cyanosis, Diaphoresis , Pallor Extremities: positive: Non-tender, Full ROM, Nml appearance. negative: Calf tenderness, Joint swelling, London's sign/cords Neurologic/Psychiatric: positive: Oriented x3, Motor nml, Sensation nml, Mood/ affect nml. negative: Weakness, Sensory loss, Facial droop, Slurred/abnml speech, Depressed mood/affect - Lab Results Fish Bones: 05/07/18 05:55 05/07/18 05:55 Other Labs: Lab Results x24hrs 05/07/18 05/07/18 05/07/18 Range/Units 05:55 05:55 05:55 WBC (4.8-10.8) x10^3/uL RBC (4.20-5.40) 10^6/uL Hgb (12.0-16.0) g/dL Hct (37.0-47.0) % MCV (81.0-99.0) fL MCH (27.0-31.0) pg MCHC (32.0-36.0) g/dL RDW (12.0-15.0) % Plt Count (130-450) 10^3/uL MPV (7.9-10.8) fL Reticulocyte % (Auto) (0.5-2.3) % Neut # (Auto) Lymph # (Auto) Haakon # (Auto) Eos # (Auto) Baso # (Auto) Absolute Nucleated RBC Total Counted Band Neuts % (Manual) (0 - 10) % Abnorm Lymph % (Manual) % Nucleated RBC % Neutrophils # (Manual) (1.5-6.6) 10^3/uL Lymphocytes # (Manual) (1.5-3.5) 10^3/uL Monocytes # (Manual) (0.0-1.0) 10^3/uL Eosinophils # (Manual) (0-0.7) 10^3/uL Basophils # (Manual) (0-0.1) 10^3/uL Differential Comment Platelet Estimate (NORMAL) RBC Morph Micro Appear (NORMAL) Absolute Retic (0.020-0.110) 10^6/uL Sodium (135-145) mmol/L Potassium (3.5-5.0) mmol/L Chloride (101-111) mmol/L Carbon Dioxide (21-32) mmol/L Anion Gap (6-13) BUN (6-20) mg/dL Creatinine (0.4-1.0) mg/dL Estimated GFR (MDRD) (>89) Glucose (70-100) mg/dL Calcium (8.5-10.3) mg/dL Iron 74 (28-170) ug/dL TIBC 132 L (250-450) ug/dL % Saturation 56 H (20-50) % Transferrin 94 L (192-382) mg/dL Ferritin 1908.0 H (11.0-306.8) ng/mL Total Bilirubin (0.2-1.0) mg/dL AST (10-42) IU/L ALT (10-60) IU/L Alkaline Phosphatase (42-121) IU/L Lactate Dehydrogenase 355 H (91-225) IU/L Total Protein (6.7-8.2) g/dL Albumin (3.2-5.5) g/dL Globulin (2.1-4.2) g/dL Albumin/Globulin Ratio (1.0-2.2) Vitamin B12 2137 H (180-914) pg/mL 05/07/18 05/07/18 05/07/18 Range/Units 05:55 05:55 05:55 WBC 3.9 L (4.8-10.8) x10^3/uL RBC 2.25 L 2.30 L (4.20-5.40) 10^6/uL Hgb 7.7 L (12.0-16.0) g/dL Hct 23.2 L (37.0-47.0) % MCV 100.9 H (81.0-99.0) fL MCH 33.6 H (27.0-31.0) pg MCHC 33.3 (32.0-36.0) g/dL RDW 13.5 (12.0-15.0) % Plt Count 208 (130-450) 10^3/uL MPV 8.6 (7.9-10.8) fL Reticulocyte % (Auto) 1.49 (0.5-2.3) % Neut # (Auto) Not Reportable Lymph # (Auto) Not Reportable Haakon # (Auto) Not Reportable Eos # (Auto) Not Reportable Baso # (Auto) Not Reportable Absolute Nucleated RBC Not Reportable Total Counted 100 Band Neuts % (Manual) 18 H (0 - 10) % Abnorm Lymph % (Manual) 0 % Nucleated RBC % Not Reportable Neutrophils # (Manual) 3.2 (1.5-6.6) 10^3/uL Lymphocytes # (Manual) 0.4 L (1.5-3.5) 10^3/uL Monocytes # (Manual) 0.4 (0.0-1.0) 10^3/uL Eosinophils # (Manual) 0.0 (0-0.7) 10^3/uL Basophils # (Manual) 0.0 (0-0.1) 10^3/uL Differential Comment MANUAL DIFFERENTIAL Platelet Estimate NORMAL (130-450,000) (NORMAL) RBC Morph Micro Appear NORMAL APPEARANCE (NORMAL) Absolute Retic 0.034 (0.020-0.110) 10^6/uL Sodium 139 (135-145) mmol/L Potassium 4.1 (3.5-5.0) mmol/L Chloride 110 (101-111) mmol/L Carbon Dioxide 22 (21-32) mmol/L Anion Gap 7.0 (6-13) BUN 34 H (6-20) mg/dL Creatinine 1.1 H (0.4-1.0) mg/dL Estimated GFR (MDRD) 49 L (>89) Glucose 136 H (70-100) mg/dL Calcium 9.4 (8.5-10.3) mg/dL Iron (28-170) ug/dL TIBC (250-450) ug/dL % Saturation (20-50) % Transferrin (192-382) mg/dL Ferritin (11.0-306.8) ng/mL Total Bilirubin 0.5 (0.2-1.0) mg/dL AST 55 H (10-42) IU/L ALT 87 H (10-60) IU/L Alkaline Phosphatase 432 H (42-121) IU/L Lactate Dehydrogenase (91-225) IU/L Total Protein 5.3 L (6.7-8.2) g/dL Albumin 2.1 L (3.2-5.5) g/dL Globulin 3.2 (2.1-4.2) g/dL Albumin/Globulin Ratio 0.7 L (1.0-2.2) Vitamin B12 (180-914) pg/mL ABX Reporting Has patient been on IV antibiotics over the past 48 hours?: Yes Assessment/Plan - Problem List (1) Pneumonia Impression: (1) Pneumonia Conclusion/Plan: 05/07 Continue Azithromycin/Rocephin IV low dosage of IV Lasix blood culture negative preliminary daily lab and vital monitor 05/06 pt's WBC is 1.2, CT of chest reveals bilateral pulmonary edema and pneumonia Continue Azithromycin/Rocephin IV start low dosage of IV Lasix follow blood culture daily lab monitor The patient was noted to be febrile at home with a reported temperature of ~101 at home[address] She saw Dr. Jones for this, a chest x-ray showed no infiltrates. She was sent back home without antibiotics. Now she presents with leukopenia, a non -productive cough, and profound hypoxia. She has been using her son's home oxygen to get some relief and has been on oxygen ever since that time. Upon arrival to the ED, the patient was noted to be 85% on room air. Plan: Continue Azithromycin/Rocephin IV that was started in the ED. Continue respiratory care, obtain a sputum sample. (2) Elevated LFTs Conclusion/Plan: 05/07, liver enzyme is going down, CT and US of abdomen reveals no acute finding. pt had US in ER, unremarkable. pt had status posf of stem cell transplant, and lymphoma. follow up out-pt GI As per oncology notes, the patient's LFTs have been steadily increasing and are very elevated today at AST-133, ALT-136, and an Alk [id number]. Plan: Recommend GI follow up after this acute illness. (3) Mantle cell lymphoma, spleen Conclusion/Plan: 05/07today WBC is 3.8 from 1.2, continue filgrastim for 5 days per oncolgist recommends filgrastim oncology department [employer] consulted for pt, and recommend CT of chest and abdomen for pt and filgrastim for 5 days, will follow up follow up pt's oncologist as out-pt The patient first had a colonoscopy for diarrhea and a colon polyp was biopsied which showed carcinoma in November 2016. 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 She is under the care of Dr. 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 Plan: We will alert Aleah Vivar of this admission and follow recommendations. (4) lymphocytopenia WBC is 3.8 now from 1.2. continue Filgrastim unknown etiology, pt had hx of lymphoma, status post of stem cell transplant. neuphopenia precaution filgrastim for 5 days, per [employer] oncologist recommendation continue treatment with antibiotics. (5) anemia HGB 7.7, order anemia study, follow up pt is asymptomatic now, will transfer blood as needed Qualifiers: Pneumonia type: due to unspecified organism Laterality: bilateral Lung location: lower lobe of lung Qualified Code(s): J18.1 - Lobar pneumonia, unspecified organism
[2018-05-07] MEDS: NAPROXEN 250 MG TABLET PO PRN (18:05)
[2018-05-08] MEDS: SODIUM CHLORIDE FLUSH 0.9% 10 ML SYRINGE IVP SCH ×3 (01:12→18:38)
[2018-05-08 06:14] LABS: ALBUMIN 2.1 g/dL (3.2-5.5); ALBUMIN/GLOBULIN RATIO 0.8 (1.0-2.2); BILIRUBIN,TOTAL 0.5 mg/dL (0.2-1.0); CALCIUM 9.5 mg/dL (8.5-10.3); CREATININE 0.9 mg/dL (0.4-1.0); TOTAL PROTEIN 4.8 g/dL (6.7-8.2)
[2018-05-08 06:16] LABS: BASOPHILS % (AUTO) 0.3 %; EOSINOPHILS % (AUTO) 0.1 %; LYMPHOCYTES % (AUTO) 4.1 %; MEAN CORPUSCULAR HEMOGLOBIN 33.4 pg (27.0-31.0); MEAN CORPUSCULAR HGB CONC 33.4 g/dL (32.0-36.0); MEAN CORPUSCULAR VOLUME 100.1 fL (81.0-99.0); MONOCYTES % (AUTO) 4.7 %; NEUTROPHILS % (AUTO) 90.8 %; PLT - PLATELET COUNT 184 10^3/uL (130-450); RED BLOOD COUNT 2.39 10^6/uL (4.20-5.40); RED CELL DISTRIBUTION WIDTH 13.3 % (12.0-15.0); WHITE BLOOD COUNT 4.3 x10^3/uL (4.8-10.8)
[2018-05-08 06:18] LABS: ABNORMAL LYMPHS % (MANUAL) 0 %
[2018-05-08 06:29] LABS: BAND NEUTROPHILS % (MANUAL) 33 %; DIFFERENTIAL COMMENT MANUAL DIFFERENTIAL; LYMPHOCYTES # (MANUAL) 0.2 10^3/uL (1.5-3.5); LYMPHOCYTES % (MANUAL) 4 %; MONOCYTES # (MANUAL) 0.2 10^3/uL (0.0-1.0); MYELOCYTES % (MANUAL) 1 %; NEUTROPHILS # (MANUAL) 3.9 10^3/uL (1.5-6.6); NEUTROPHILS % (MANUAL) 58 %; PLATELET ESTIMATE, MANUAL NORMAL (130-450,000) (NORMAL); RBC MORPHOLOGY (MULTIPLE) NORMAL APPEARANCE (NORMAL)
[2018-05-08] MEDS ORDERED: predniSONE 20 MG TABLET PO SCH (08:00)
[2018-05-08] MEDS: cefTRIAXone 1 GM in SODIUM CHLORIDE 0.9% MINIBAG 100 ML IV SCH (10:16)
[2018-05-08] MEDS: FUROSEMIDE 20 MG/2 ML VIAL IVP SCH (10:22)
[2018-05-08] MEDS: guaiFENesin 600 MG TABLET PO SCH ×2 (10:22→21:03)
[2018-05-08] MEDS: CHOLECALCIFEROL 1,000 UNIT TABLET PO SCH (10:23)
[2018-05-08] MEDS: valACYclovir 500 MG TABLET PO SCH (10:23)
[2018-05-08] MEDS: predniSONE 20 MG TABLET PO SCH (10:24)
[2018-05-08] MEDS: CALCIUM CARBONATE CHEW 500 MG TABLET PO SCH ×2 (10:25→21:03)
[2018-05-08] MEDS: POLYETHYLENE GLYCOL 3350 17 GM PACKET PO SCH (10:29)
[2018-05-08] MEDS: B6 PO SCH (10:29)
[2018-05-08] MEDS: B12 PO SCH (10:29)
[2018-05-08] MEDS: LEVOMEFOLATE CALCIUM PO SCH (10:29)
[2018-05-08] MEDS: AZITHROMYCIN INJ 500 MG in SODIUM CHLORIDE 0.9% 250 ML IV SCH (11:47)
[2018-05-08] MEDS: FILGRASTIM-SNDZ 300 MCG/0.5 ML SYRINGE SUBQ SCH (12:43)
[2018-05-08] MEDS: SODIUM CHLORIDE FLUSH 0.9% 10 ML SYRINGE IVP PRN (13:19)
--- NOTE | 2018-05-08 14:18 | PROVIDER PROGRESS NOTE ---
Subjective - Prog Note Date Prog Note Date: 05/08/18 - Subjective Pt reports feeling: Improved Subjective: pt state she feel better but still some SOB. No fever, chill, cough, CP. will order CXR to check pt Current Medications - Current Medications Current Medications: Active Medications Albuterol/Ipratropium (Duoneb) 3 ml INH Q4HR PRN PRN Reason: Wheezing Calcium Carbonate/Glycine (Tums) 500 mg PO BID [facility] Last Admin: 05/08/18 10:25 Dose: 500 mg Cholecalciferol (Vitamin D3) 2,000 unit PO DAILY [facility] Last Admin: 05/08/18 10:23 Dose: 2,000 unit Filgrastim (Zarxio) 300 mcg SUBQ DAILY [facility] Stop: 05/10/18 09:01 Last Admin: 05/08/18 12:43 Dose: 300 mcg Furosemide (Lasix Inj 20mg Vial) 20 mg IVP DAILY [facility] Last Admin: 05/08/18 10:22 Dose: 20 mg Guaifenesin (Mucinex) 600 mg PO BID [facility] Last Admin: 05/08/18 10:22 Dose: 600 mg Heparin Sodium (Beef Lung) () 30 - 50 unit IVP PRN PRN PRN Reason: Port Protocol (<24 hours) Last Admin: 05/08/18 13:19 Dose: 50 unit Azithromycin 500 mg/ Sodium (Chloride) 250 mls @ 250 mls/hr IV DAILY [facility] Last Infusion: 05/08/18 12:55 Dose: Infused Ceftriaxone Sodium 1 gm/ (Sodium Chloride) 100 mls @ 200 mls/hr IV DAILY [facility] Last Infusion: 05/08/18 11:00 Dose: Infused Loperamide HCl (Imodium) 2 mg PO PRN PRN PRN Reason: Diarrhea Naproxen (Naprosyn) 250 mg PO BID PRN PRN Reason: PAIN Last Admin: 05/07/18 18:05 Dose: 250 mg Non-Formulary Medication (B12/Levomefolate Calcium/B-6 [Lmthf-Pyridoxine- Cyanocoba Tb]) 2 tab PO DAILY [facility] Last Admin: 05/08/18 10:29 Dose: Not Given Polyethylene Glycol (Miralax) 17 gm PO DAILY [facility] Last Admin: 05/08/18 10:29 Dose: Not Given Prednisone (Deltasone) 30 mg PO DAILYWM [facility] Last Admin: 05/08/18 10:24 Dose: 30 mg Ranitidine HCl (Zantac) 150 mg PO DAILY [facility] Last Admin: 05/08/18 10:25 Dose: 150 mg Sodium Chloride (Normal Saline Flush 0.9%) 10 ml IVP PRN PRN PRN Reason: NEEDED PER PROVIDER ORDERS Last Admin: 05/08/18 13:19 Dose: 10 ml Sodium Chloride (Normal Saline Flush 0.9%) 10 ml IVP 0100,0900,1700 [facility] Last Admin: 05/08/18 10:30 Dose: 10 ml Sodium Chloride (Normal Saline Flush 0.9%) 20 ml IVP PRN PRN PRN Reason: After Blood Draw Last Admin: 05/07/18 05:51 Dose: 20 ml Valacyclovir HCl (Valtrex) 500 mg PO DAILY [facility] Last Admin: 05/08/18 10:23 Dose: 500 mg Valacyclovir HCl [Valtrex] 500 mg PO DAILY 01/02/17 Loperamide [Imodium] 2 mg PO PRN PRN 09/16/17 raNITIdine [Zantac] 150 mg PO DAILY 09/17/17 B12/Levomefolate Calcium/B-6 [Jffuw-Ieaaegimvx-Trqbcbxsb Tb] 2 tab PO DAILY Cholecalciferol (Vitamin D3) [Vitamin D3] 2,000 units PO DAILY 12/10/17 Naproxen Sodium [Aleve] 220 mg PO BID PRN 05/05/18 Objective - Vital Signs/Intake & Output Reviewed Vital Signs: Yes Vital Signs: Vital Signs x48h Temp Pulse Resp BP Pulse Ox 05/08/18 07:58 36.5 C 58 L 18 125/44 L 94 Intake & Output: Intake & Output 05/05/18 05/06/18 05/07/18 05/08/18 23:59 23:59 23:59 23:59 Intake Total 1750 3632.083 1840 1040 Output Total 900 Balance 1750 2732.083 1840 1040 - Objective General Appearance: positive: No acute distress, Alert. negative: Lethargic Eyes Bilateral: positive: Normal inspection, PERRL, No lid inflammation, Conjunctivae nml ENT: positive: ENT inspection nml, Pharynx nml, No signs of dehydration. negative: Purulent nasal drainage, Pharyngeal erythema, Oral lesions Neck: positive: Nml inspection, Thyroid nml, No JVD, Trachea midline. negative : Thyromegaly, Lymphadenopathy (R), Lymphadenopathy (L), Stiff neck, Swelling/ bruising, Tracheal deviation Respiratory: positive: Chest non-tender, No respiratory distress, Wheezes, Rales , Other (some crackles on bilateral low lobe) Cardiovascular: positive: Regular rate & rhythm, No murmur, No gallop. negative : Irregularly irregular, Extrasystoles, Tachycardia, Bradycardia, JVD present, Systolic murmur, Diastolic murmur Peripheral Pulses: 2+ Radial (R), 2+ Radial (L), 2+ Dorsalis pedis (R), 2+ Dorsalis pedis (L) Abdomen: positive: Non-tender, No organomegaly, Nml bowel sounds, No distention. negative: Tenderness, Guarding, Rebound Back: positive: Nml inspection. negative: CVA tenderness (R), CVA tenderness (L ) Skin: positive: Color nml, No rash, Warm, Dry. negative: Cyanosis, Diaphoresis , Pallor Extremities: positive: Non-tender, Full ROM, Nml appearance. negative: Calf tenderness, Joint swelling, London's sign/cords Neurologic/Psychiatric: positive: Oriented x3, Motor nml, Sensation nml, Mood/ affect nml. negative: Weakness, Sensory loss, Facial droop, Slurred/abnml speech, Depressed mood/affect - Lab Results Fish Bones: 05/08/18 05:28 05/08/18 05:28 Other Labs: Lab Results x24hrs 05/08/1818 Range/Units 05:28 05:28 WBC 4.3 L (4.8-10.8) x10^3/uL RBC 2.39 L (4.20-5.40) 10^6/uL Hgb 8.0 L (12.0-16.0) g/dL Hct 23.9 L (37.0-47.0) % MCV 100.1 H (81.0-99.0) fL MCH 33.4 H (27.0-31.0) pg MCHC 33.4 (32.0-36.0) g/dL RDW 13.3 (12.0-15.0) % Plt Count 184 (130-450) 10^3/uL MPV 9.0 (7.9-10.8) fL Neut # (Auto) Not Reportable Lymph # (Auto) Not Reportable [place] # (Auto) Not Reportable Eos # (Auto) Not Reportable Baso # (Auto) Not Reportable Absolute Nucleated RBC Not Reportable Total Counted 100 Band Neuts % (Manual) 33 H (0 - 10) % Abnorm Lymph % (Manual) 0 % Myelocytes % 1 H ( - 0) % Nucleated RBC % Not Reportable Neutrophils # (Manual) 3.9 (1.5-6.6) 10^3/uL Lymphocytes # (Manual) 0.2 L (1.5-3.5) 10^3/uL Monocytes # (Manual) 0.2 (0.0-1.0) 10^3/uL Eosinophils # (Manual) 0.0 (0-0.7) 10^3/uL Basophils # (Manual) 0.0 (0-0.1) 10^3/uL Differential Comment MANUAL DIFFERENTIAL Platelet Estimate NORMAL (130-450,000) (NORMAL) RBC Morph Micro Appear NORMAL APPEARANCE (NORMAL) Sodium 142 (135-145) mmol/L Potassium 4.3 (3.5-5.0) mmol/L Chloride 111 (101-111) mmol/L Carbon Dioxide 25 (21-32) mmol/L Anion Gap 6.0 (6-13) BUN 37 H (6-20) mg/dL Creatinine 0.9 (0.4-1.0) mg/dL Estimated GFR (MDRD) 62 L (>89) Glucose 96 (70-100) mg/dL Calcium 9.5 (8.5-10.3) mg/dL Total Bilirubin 0.5 (0.2-1.0) mg/dL AST 33 (10-42) IU/L ALT 65 H (10-60) IU/L Alkaline Phosphatase 346 H (42-121) IU/L Total Protein 4.8 L (6.7-8.2) g/dL Albumin 2.1 L (3.2-5.5) g/dL Globulin 2.7 (2.1-4.2) g/dL Albumin/Globulin Ratio 0.8 L (1.0-2.2) ABX Reporting Has patient been on IV antibiotics over the past 48 hours?: Yes Assessment/Plan - Problem List (1) Pneumonia Impression: Conclusion/Plan: 05/08, 94% Sats of 3 liter of O2, pt did not take O2 at home. Pt report she feel some SOB. order CXR, follow up continue antibiotics 05/07 Continue Azithromycin/Rocephin IV low dosage of IV Lasix blood culture negative preliminary daily lab and vital monitor 05/06 pt's WBC is 1.2, CT of chest reveals bilateral pulmonary edema and pneumonia Continue Azithromycin/Rocephin IV start low dosage of IV Lasix follow blood culture daily lab monitor The patient was noted to be febrile at home with a reported temperature of ~101 at home[address] She saw Dr. Jones for this, a chest x-ray showed no infiltrates. She was sent back home without antibiotics. Now she presents with leukopenia, a non -productive cough, and profound hypoxia. She has been using her son's home oxygen to get some relief and has been on oxygen ever since that time. Upon arrival to the ED, the patient was noted to be 85% on room air. Plan: Continue Azithromycin/Rocephin IV that was started in the ED. Continue respiratory care, obtain a sputum sample. (2) Elevated LFTs Conclusion/Plan: 05/08 no significant changing as previous, 05/07, liver enzyme is going down, CT and US of abdomen reveals no acute finding. pt had US in ER, unremarkable. pt had status posf of stem cell transplant, and lymphoma. follow up out-pt GI As per oncology notes, the patient's LFTs have been steadily increasing and are very elevated today at AST-133, ALT-136, and an Alk [id number]. Plan: Recommend GI follow up after this acute illness. (3) Mantle cell lymphoma, spleen Conclusion/Plan: 05/08, follow up out-pt oncologist WBC is up to 4.2,continue filgrastim for total 5 days 05/07today WBC is 3.8 from 1.2, continue filgrastim for 5 days per oncolgist recommends filgrastim oncology department [employer] consulted for pt, and recommend CT of chest and abdomen for pt and filgrastim for 5 days, will follow up follow up pt's oncologist as out-pt The patient first had a colonoscopy for diarrhea and a colon polyp was biopsied which showed carcinoma in November 2016. 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 She is under the care of Dr. 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 Plan: We will alert Aleah Vivar of this admission and follow recommendations. (4) lymphocytopenia WBC is 3.8 now from 1.2. continue Filgrastim unknown etiology, pt had hx of lymphoma, status post of stem cell transplant. neuphopenia precaution filgrastim for 5 days, per [employer] oncologist recommendation continue treatment with antibiotics. (5) anemia HGB is going up 8.0, continue to monitor. pt is asymptomatic HGB 7.7, order anemia study, follow up pt is asymptomatic now, will transfer blood as needed Qualifiers: Qualifiers: Pneumonia type: due to unspecified organism Laterality: bilateral Lung location: lower lobe of lung Qualified Code(s): J18.1 - Lobar pneumonia, unspecified organism
--- NOTE | 2018-05-08 16:40 | XRAY Report ---
Procedure Date: 05/08/2018 Accession Number: [id number] / [id number] Procedure: XR - Chest 1 View X-Ray CPT Code: 02406 FULL RESULT: EXAM: CHEST RADIOGRAPHY EXAM DATE: 05/08/2018 04:24 PM. CLINICAL HISTORY: Shortness of breath. COMPARISON: 05/05/2018. TECHNIQUE: 1 view. FINDINGS: Lungs/Pleura: Stable bibasilar reticulonodular infiltrates involving the inferior halves both lungs, right slightly greater than left. No effusion, vascular congestion or pneumothorax. Mediastinum: Within exam limitations, the cardiomediastinal contour is normal. Other: Stable right Port-A-Cath tip cava atrial junction. Cholecystectomy. IMPRESSION: Stable bibasilar lung infiltrates. RADIA
[2018-05-08] MEDS: NAPROXEN 250 MG TABLET PO PRN (21:08)
[2018-05-09] MEDS: SODIUM CHLORIDE FLUSH 0.9% 10 ML SYRINGE IVP SCH ×2 (01:59→08:56)
[2018-05-09 08:53] LABS: BASOPHILS % (AUTO) 0.1 %; EOSINOPHILS % (AUTO) 0.6 %; HGB - HEMOGLOBIN 8.6 g/dL (12.0-16.0); LYMPHOCYTES % (AUTO) 2.9 %; MEAN CORPUSCULAR HEMOGLOBIN 33.3 pg (27.0-31.0); MEAN CORPUSCULAR HGB CONC 33.2 g/dL (32.0-36.0); MEAN CORPUSCULAR VOLUME 100.3 fL (81.0-99.0); MEAN PLATELET VOLUME 8.7 fL (7.9-10.8); MONOCYTES % (AUTO) 1.9 %; NEUTROPHILS % (AUTO) 94.5 %; PLT - PLATELET COUNT 163 10^3/uL (130-450); RED BLOOD COUNT 2.58 10^6/uL (4.20-5.40); RED CELL DISTRIBUTION WIDTH 13.8 % (12.0-15.0); WHITE BLOOD COUNT 3.3 x10^3/uL (4.8-10.8)
[2018-05-09 08:55] LABS: ALBUMIN 2.5 g/dL (3.2-5.5); ALBUMIN/GLOBULIN RATIO 0.9 (1.0-2.2); BILIRUBIN,TOTAL 0.6 mg/dL (0.2-1.0); CALCIUM 9.3 mg/dL (8.5-10.3); CREATININE 1.1 mg/dL (0.4-1.0); TOTAL PROTEIN 5.3 g/dL (6.7-8.2)
[2018-05-09] MEDS: CALCIUM CARBONATE CHEW 500 MG TABLET PO SCH (08:55)
[2018-05-09] MEDS: guaiFENesin 600 MG TABLET PO SCH (08:55)
[2018-05-09] MEDS: predniSONE 20 MG TABLET PO SCH (08:55)
[2018-05-09] MEDS: CHOLECALCIFEROL 1,000 UNIT TABLET PO SCH (08:55)
[2018-05-09] MEDS: valACYclovir 500 MG TABLET PO SCH (08:55)
[2018-05-09] MEDS: cefTRIAXone 1 GM in SODIUM CHLORIDE 0.9% MINIBAG 100 ML IV SCH (08:55)
[2018-05-09 08:56] LABS: ABNORMAL LYMPHS % (MANUAL) 0 %
[2018-05-09] MEDS: POLYETHYLENE GLYCOL 3350 17 GM PACKET PO SCH (08:56)
[2018-05-09] MEDS: LEVOMEFOLATE CALCIUM PO SCH (08:56)
[2018-05-09] MEDS: B12 PO SCH (08:56)
[2018-05-09] MEDS: AZITHROMYCIN INJ 500 MG in SODIUM CHLORIDE 0.9% 250 ML IV SCH (08:56)
[2018-05-09] MEDS: B6 PO SCH (08:56)
[2018-05-09 10:17] LABS: BAND NEUTROPHILS % (MANUAL) 29 %; LYMPHOCYTES # (MANUAL) 0.1 10^3/uL (1.5-3.5); LYMPHOCYTES % (MANUAL) 3 %; METAMYELOCYTES % (MANUAL) 5 %; MONOCYTES # (MANUAL) 0.2 10^3/uL (0.0-1.0); NEUTROPHILS # (MANUAL) 2.8 10^3/uL (1.5-6.6); NEUTROPHILS % (MANUAL) 57 %
[2018-05-09 10:21] LABS: DIFFERENTIAL COMMENT MANUAL DIFFERENTIAL; PLATELET ESTIMATE, MANUAL NORMAL (130-450,000) (NORMAL); PLATELET MORPHOLOGY RARE GIANT PLATELETS (NORMAL)
[2018-05-09] MEDS ORDERED: POTASSIUM CHLORIDE 20 MEQ TABLET PO ONE (10:24)
[2018-05-09] MEDS: FUROSEMIDE 20 MG/2 ML VIAL IVP SCH (10:43)
[2018-05-09] MEDS: NAPROXEN 250 MG TABLET PO PRN (10:51)
[2018-05-09] MEDS: FILGRASTIM-SNDZ 300 MCG/0.5 ML SYRINGE SUBQ SCH (10:51)
--- NOTE | 2018-05-09 14:09 | Discharge Plan ---
Discharge Plan Disposition: 01 Home, Self Care Condition: Serious Prescriptions: Amox/Clav 875/125 [Augmentin] 1 each PO Q12H #12 tablet Diet: Regular Activity Restrictions: Activity as Tolerated Shower Restrictions: No (fall precaution) Weight Bearing: Full Weight Instruction Topics: Pneumonia, Amoxicillin Clavulanic Acid tablets Additional Instructions or Follow Up instructions: You may follow up your PCP in 2-3 days, follow up your oncologist on 05/12/2018 as your schedule, may carry Oxygen as respiratory therapist instruct to you. Should your symptoms return or worsen, you may present ER or call 911 for help. No Smoking: If you smoke, Please STOP! Call for help. Follow-up with: Selena Ely MD [Primary Care Provider] -
--- NOTE | 2018-05-09 14:29 | DISCHARGE SUMMARY ---
Discharge Summary Discharge Date: 05/09/18 Discharging Provider: STEWART Primary Care Provider: DR. Selena Weston Condition at Discharge: Serious Discharge Disposition: 01 Home, Self Care Discharge Facility Name: home - DIAGNOSES Admission Diagnoses: (1) Pneumonia (2) Elevated LFTs (3) Mantle cell lymphoma, spleen Discharge Diagnoses with Status of Each Condition: (1) Pneumonia No fever, chill, CXR reveals stable. WBC is low. But pt require home oxygen per sats/desat study by RT. Pt strongly request to be d/c to home today. She already made an appointment to see her oncologist on next Saturday. Pt is prescribed Augmentin home, and follow up PCP and have CXR in one week (2) Elevated LFTs slight elevated LFTs, chronic condition. CT of abdomen and chest reveals no recurrence of lymphoma. Follow up out-pt GI (3) Mantle cell lymphoma, spleen CT of abdomen and chest reveals no recurrence of lymphoma, follow up her oncologist as out-pt (4) lymphocytopenia improved significantly, follow up her oncologist as out-pt (5) anemia stable at HGB 8.6. pt was hypoxic at rest, room air with O2 sats of 87%, at rest with O2 at 3 lpm via nasal cannula, her sats improved to 93-94%. with exertion on 5 lpm her sats were 88-94% at 400 feet. I am ordering home O2 at 3 lpm via nasal cannula continuously at rest and 5 lpm with exertion. pt's hypoxia may be contributed by anemia, lymphoma, pneumonia. Literature demonstrated Lymphoma as a cause of respiratory failure (https://www.jto.org/ [email or web address]) - HPI History of Present Illness: refer from Ms. Moran's HPI for pt as the follow: Lois Vidal is a 68-year old female with a past medical history of Mantle Cell lymphoma including colon lymphoma, chronic diarrhea and GERD. 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 She is under the care of Dr. Jones and last was seen on 04/21/18. Last week she was seen by Dr. Jones after reports of a fever up to 101 at home. A chest x- ray was completed and negative for PNA. She was not prescribed anything and over the weekend became profoundly sleepy. She literally slept all day and when she awoke, was very short of breath and noticed a dry cough. She called her son, who is prescribed home oxygen for chronic migraines and he brought over his O2 tank for her to use. After no improvement, he presented to the ED with a steady decline in health that began over 3 weeks ago. - ALLERGIES Allergies/Adverse Reactions: Allergies Allergy/AdvReac Type Severity Reaction Status Date / Time No Known Drug Allergies Allergy Verified 05/06/18 13:09 - MEDICATIONS Home Medications: Ambulatory Orders Medication Instructions Recorded Confirmed Valacyclovir HCl [Valtrex] 500 mg PO DAILY 01/02/17 05/05/18 Loperamide [Imodium] 2 mg PO PRN PRN 09/16/17 05/05/18 raNITIdine [Zantac] 150 mg PO DAILY 09/17/17 05/05/18 B12/Levomefolate Calcium/B-6 2 tab PO DAILY 12/10/17 05/05/18 [Isvuv-Hkwejnassi-Gqzfxycny Tb] Cholecalciferol (Vitamin D3) 2,000 units PO DAILY 12/10/17 05/05/18 [Vitamin D3] Naproxen Sodium [Aleve] 220 mg PO BID PRN 05/05/18 05/05/18 Amox/Clav 875/125 [Augmentin] 1 each PO Q12H #12 tablet 05/09/18 - PHYSICAL EXAM AT DISCHARGE General Appearance: positive: No acute distress, Alert. negative: Lethargic Eyes Bilateral: positive: Normal inspection, PERRL, No lid inflammation, Conjunctivae nml ENT: positive: ENT inspection nml, Pharynx nml, No signs of dehydration. negative: Purulent nasal drainage, Pharyngeal erythema, Oral lesions Neck: positive: Nml inspection, Thyroid nml, No JVD, Trachea midline. negative : Thyromegaly, Lymphadenopathy (R), Lymphadenopathy (L), Stiff neck, Carotid bruit, Swelling/bruising, Tracheal deviation Respiratory: positive: Chest non-tender, No respiratory distress, Breath sounds nml. negative: Wheezes, Rales, Rhonchi Cardiovascular: positive: Regular rate & rhythm, No murmur, No gallop. negative : Irregularly irregular, Extrasystoles, Tachycardia, Bradycardia, JVD present, Systolic murmur, Diastolic murmur Peripheral Pulses: positive: 2+ Abdomen: positive: Non-tender, No organomegaly, Nml bowel sounds, No distention. negative: Tenderness, Guarding, Rebound Back: positive: Nml inspection. negative: CVA tenderness (R), CVA tenderness (L ) Skin: positive: Color nml, No rash, Warm, Dry. negative: Cyanosis, Diaphoresis , Pallor Extremities: positive: Non-tender, Full ROM, Nml appearance. negative: Calf tenderness, Joint swelling, London's sign/cords Neurologic/Psychiatric: positive: Oriented x3, Motor nml, Sensation nml, Mood/ affect nml. negative: Weakness, Sensory loss, Facial droop, Slurred/abnml speech, Depressed mood/affect - LABS Result Diagrams: 05/09/18 08:31 05/09/18 08:31 - FOLLOW UP Follow Up: You may follow up your PCP in 2-3 days, follow up your oncologist on 05/12/2018 as your schedule, may carry Oxygen as respiratory therapist instruct to you. Should your symptoms return or worsen, you may present ER or call 911 for help. - TIME SPENT Time Spent in Discharge (Minutes): 50
[2018-05-09 15:36] VITALS: BP 108/53
[2018-05-10] MEDS ORDERED: predniSONE 20 MG TABLET PO SCH (08:00)
== END 2018-05-09 16:06 | disposition home or self-care (01) | DRG 948 ==
LOC: ED 11:27 → MS2 13:34
PROVIDERS: ADMIT Nurse Practitioner; ATTEND Nurse Practitioner Gerontology
DX: J18.1 Lobar pneumonia, unspecified organism (principal); R09.02 Hypoxemia; R79.89 Other specified abnormal findings of blood chemistry; C83.10 Mantle cell lymphoma, unspecified site; Z94.84 Stem cells transplant status; C83.17 Mantle cell lymphoma, spleen; D64.9 Anemia, unspecified; K21.9 Gastro-esophageal reflux disease without esophagitis; H54.7 Unspecified visual loss; K52.9 Noninfective gastroenteritis and colitis, unspecified; Z66 Do not resuscitate; Z96.659 Presence of unspecified artificial knee joint; Z79.899 Other long term (current) drug therapy; Z87.891 Personal history of nicotine dependence; Z99.81 Dependence on supplemental oxygen
CPT/HCPCS: 36415; 71045; 71046; 71260; 74177; 80053; 81001; 81003; 82607; 82728; 82977; 83540; 83605; 83615; 83690; 83735; 84443; 84466; 84484; 85025; 85044; 86850; 86900; 86901; 87040; 87086; 93005; 94640; 94761; 96365; 99284

== ENCOUNTER 2018-06-05 13:12 | Outpatient (CLI) | payer MEDICARE, BC ==
[2018-06-05 13:28] LABS: BASOPHILS % (AUTO) 0.4 %; EOSINOPHILS % (AUTO) 0.4 %; HGB - HEMOGLOBIN 12.5 g/dL (12.0-16.0); LYMPHOCYTES % (AUTO) 4.1 %; MEAN CORPUSCULAR HEMOGLOBIN 33.6 pg (27.0-31.0); MEAN CORPUSCULAR HGB CONC 33.7 g/dL (32.0-36.0); MEAN CORPUSCULAR VOLUME 99.6 fL (81.0-99.0); NEUTROPHILS % (AUTO) 95.1 %; PLT - PLATELET COUNT 186 10^3/uL (130-450); RED BLOOD COUNT 3.73 10^6/uL (4.20-5.40); RED CELL DISTRIBUTION WIDTH 19.6 % (12.0-15.0); WHITE BLOOD COUNT 8.4 x10^3/uL (4.8-10.8)
[2018-06-05 13:32] LABS: ABNORMAL LYMPHS % (MANUAL) 0 %
[2018-06-05 14:08] LABS: BAND NEUTROPHILS % (MANUAL) 11 %; LYMPHOCYTES # (MANUAL) 0.4 10^3/uL (1.5-3.5); LYMPHOCYTES % (MANUAL) 5 %; MONOCYTES # (MANUAL) 0.6 10^3/uL (0.0-1.0); NEUTROPHILS # (MANUAL) 7.4 10^3/uL (1.5-6.6); NEUTROPHILS % (MANUAL) 77 %
[2018-06-05 14:10] LABS: DIFFERENTIAL COMMENT MANUAL DIFFERENTIAL
[2018-06-05 14:28] LABS: ALBUMIN 4.3 g/dL (3.2-5.5); BILIRUBIN,DIRECT 0.1 mg/dL (0.1-0.5); BILIRUBIN,TOTAL 0.8 mg/dL (0.2-1.0); CALCIUM 9.8 mg/dL (8.5-10.3); CREATININE 2.3 mg/dL (0.4-1.0)
== END 2018-06-05 13:13 | disposition home or self-care (01) ==
LOC: LAB 13:12
PROVIDERS: ATTEND Internal Medicine Infectious Disease
DX: B59 Pneumocystosis (principal)
CPT/HCPCS: 36415; 80048; 80076; 85025

== ENCOUNTER 2018-06-06 09:09 | Outpatient (CLI) | payer MEDICARE, BC ==
[2018-06-06 09:56] LABS: CALCIUM 9.6 mg/dL (8.5-10.3); CREATININE 2.1 mg/dL (0.4-1.0)
== END 2018-06-06 09:10 | disposition home or self-care (01) ==
LOC: LAB 09:09
PROVIDERS: ATTEND Internal Medicine Infectious Disease
DX: N17.9 Acute kidney failure, unspecified (principal)
CPT/HCPCS: 36415; 80048

== ENCOUNTER 2018-06-11 09:42 | Outpatient (CLI) | payer MEDICARE, BC ==
[2018-06-11 10:37] LABS: BASOPHILS % (AUTO) 1.6 %; EOSINOPHILS # (AUTO) 0.1 10^3/uL (0.0-0.7); EOSINOPHILS % (AUTO) 2.1 %; HGB - HEMOGLOBIN 10.7 g/dL (12.0-16.0); LYMPHOCYTES # (AUTO) 0.3 10^3/uL (1.5-3.5); LYMPHOCYTES % (AUTO) 11.3 %; MEAN CORPUSCULAR HEMOGLOBIN 33.5 pg (27.0-31.0); MEAN CORPUSCULAR HGB CONC 33.8 g/dL (32.0-36.0); MEAN CORPUSCULAR VOLUME 99.2 fL (81.0-99.0); MEAN PLATELET VOLUME 7.7 fL (7.9-10.8); MONOCYTES # (AUTO) 0.2 10^3/uL (0.0-1.0); NEUTROPHILS # (AUTO) 2.3 10^3/uL (1.5-6.6); PLT - PLATELET COUNT 118 10^3/uL (130-450); RED BLOOD COUNT 3.19 10^6/uL (4.20-5.40); RED CELL DISTRIBUTION WIDTH 20.7 % (12.0-15.0)
[2018-06-11 10:47] LABS: ALBUMIN 3.3 g/dL (3.2-5.5); BILIRUBIN,DIRECT 0.1 mg/dL (0.1-0.5); BILIRUBIN,TOTAL 0.7 mg/dL (0.2-1.0); CALCIUM 8.9 mg/dL (8.5-10.3); CREATININE 1.1 mg/dL (0.4-1.0); TOTAL PROTEIN 5.9 g/dL (6.7-8.2)
[2018-06-11 10:53] LABS: RBC MORPHOLOGY (MULTIPLE) 3+ ANISOCYTOSIS (NORMAL)
== END 2018-06-11 09:43 | disposition home or self-care (01) ==
LOC: LAB 09:42
PROVIDERS: ATTEND Internal Medicine Infectious Disease
DX: N17.9 Acute kidney failure, unspecified (principal); B59 Pneumocystosis
CPT/HCPCS: 36415; 80048; 80076; 85025

== ENCOUNTER 2018-06-18 10:12 | Outpatient (CLI) | payer MEDICARE, BC ==
[2018-06-18 10:46] LABS: BASOPHILS % (AUTO) 1.2 %; EOSINOPHILS # (AUTO) 0.1 10^3/uL (0.0-0.7); EOSINOPHILS % (AUTO) 2.2 %; HGB - HEMOGLOBIN 9.3 g/dL (12.0-16.0); LYMPHOCYTES # (AUTO) 0.3 10^3/uL (1.5-3.5); LYMPHOCYTES % (AUTO) 12.9 %; MEAN CORPUSCULAR HEMOGLOBIN 33.9 pg (27.0-31.0); MEAN CORPUSCULAR HGB CONC 33.4 g/dL (32.0-36.0); MEAN CORPUSCULAR VOLUME 101.3 fL (81.0-99.0); MEAN PLATELET VOLUME 8.1 fL (7.9-10.8); MONOCYTES # (AUTO) 0.2 10^3/uL (0.0-1.0); MONOCYTES % (AUTO) 7.2 %; NEUTROPHILS # (AUTO) 2.1 10^3/uL (1.5-6.6); NEUTROPHILS % (AUTO) 76.5 %; PLT - PLATELET COUNT 92 10^3/uL (130-450); RED BLOOD COUNT 2.75 10^6/uL (4.20-5.40); RED CELL DISTRIBUTION WIDTH 22.9 % (12.0-15.0); WHITE BLOOD COUNT 2.7 x10^3/uL (4.8-10.8)
[2018-06-18 10:48] LABS: ALBUMIN 3.6 g/dL (3.2-5.5); ALKALINE PHOSPHATASE 75 IU/L (42-121); ALT ALANINE AMINOTRANSFERASE 25 IU/L (10-60); AST ASPARTATE AMINOTRANSFERASE 19 IU/L (10-42); BILIRUBIN,TOTAL 0.5 mg/dL (0.2-1.0); BUN - BLOOD UREA NITROGEN 14 mg/dL (6-20); CALCIUM 9.2 mg/dL (8.5-10.3); CARBON DIOXIDE - CO2 20 mmol/L (21-32); CHLORIDE 106 mmol/L (101-111); CREATININE 1.1 mg/dL (0.4-1.0); GFR - MDRD 49 (>89); GLUCOSE 117 mg/dL (70-100); SODIUM 134 mmol/L (135-145); TOTAL PROTEIN 6.1 g/dL (6.7-8.2)
[2018-06-18 11:12] LABS: PLATELET ESTIMATE, MANUAL DECREASED (<130,000) (NORMAL); PLATELET MORPHOLOGY RARE GIANT PLATELETS (NORMAL)
[2018-06-18 11:39] LABS: BILIRUBIN,DIRECT < 0.1 mg/dL (0.1-0.5)
== END 2018-06-18 10:13 | disposition home or self-care (01) ==
LOC: LAB 10:12
PROVIDERS: ATTEND Internal Medicine Infectious Disease
DX: B59 Pneumocystosis (principal)
CPT/HCPCS: 36415; 80048; 80076; 85025

== ENCOUNTER 2018-06-30 09:26 | Outpatient (CLI) | payer MEDICARE, BC ==
[2018-06-30 10:04] LABS: BASOPHILS % (AUTO) 1.1 %; EOSINOPHILS % (AUTO) 1.1 %; HGB - HEMOGLOBIN 9.4 g/dL (12.0-16.0); MEAN CORPUSCULAR HEMOGLOBIN 35.4 pg (27.0-31.0); MEAN CORPUSCULAR HGB CONC 33.8 g/dL (32.0-36.0); MEAN CORPUSCULAR VOLUME 104.5 fL (81.0-99.0); MONOCYTES % (AUTO) 16.3 %; NEUTROPHILS % (AUTO) 59.5 %; PLT - PLATELET COUNT 159 10^3/uL (130-450); RED BLOOD COUNT 2.67 10^6/uL (4.20-5.40); RED CELL DISTRIBUTION WIDTH 25.6 % (12.0-15.0); WHITE BLOOD COUNT 3.5 x10^3/uL (4.8-10.8)
[2018-06-30 10:11] LABS: CALCIUM 9.1 mg/dL (8.5-10.3); CREATININE 0.9 mg/dL (0.4-1.0)
[2018-06-30 11:21] LABS: ABNORMAL LYMPHS % (MANUAL) 0 %
[2018-06-30 11:23] LABS: BAND NEUTROPHILS % (MANUAL) 8 %; EOSINOPHILS # (MANUAL) 0.1 10^3/uL (0-0.7); LYMPHOCYTES # (MANUAL) 0.9 10^3/uL (1.5-3.5); LYMPHOCYTES % (MANUAL) 15 %; METAMYELOCYTES % (MANUAL) 2 %; MONOCYTES # (MANUAL) 0.2 10^3/uL (0.0-1.0); NEUTROPHILS # (MANUAL) 2.2 10^3/uL (1.5-6.6); NEUTROPHILS % (MANUAL) 56 %; PLATELET MORPHOLOGY NORMAL APPEARANCE (NORMAL)
[2018-06-30 11:24] LABS: DIFFERENTIAL COMMENT MANUAL DIFFERENTIAL
== END 2018-06-30 09:27 | disposition home or self-care (01) ==
LOC: LAB 09:26
PROVIDERS: ATTEND Internal Medicine Infectious Disease
DX: B59 Pneumocystosis (principal)
CPT/HCPCS: 36415; 80048; 85025

== ENCOUNTER 2018-12-01 09:31 | Emergency (ER) | payer MEDICARE, BC ==
--- NOTE | 2018-12-01 10:18 | ED Physician Documentation ---
History of Present Illness - Stated complaint Stated Complaint: SORES MOUTH,SWOLLEN GLAND,VOMITING,DIARRHEA - Chief complaint Chief Complaint: General - History obtained from History obtained from: Patient - History of Present Illness Timing: How many weeks ago (1) - Additonal information Additional information: 68-year-old female with a history of mantle cell lymphoma and is status post bone marrow transplant. She has developed canker sores on the right side of the tongue over the past week. She last had any chemo treatment in September and is not scheduled for more until dec. She feels fatigued and has a swollen lymph node but is not otherwise ill. Review of Systems Constitutional: reports: Myalgias, Fatigue. 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: Tubal ligation HEENT: Cataracts, Tonsil/Adenoidectomy - Present Medications Home Medications: Ambulatory Orders Medication Instructions Recorded Confirmed Valacyclovir HCl [Valtrex] 500 mg PO BID 01/02/17 12/01/18 raNITIdine [Zantac] 150 mg PO DAILY 09/17/17 12/01/18 B12/Levomefolate Calcium/B-6 1 tab PO DAILY 12/10/17 12/01/18 [Afnhz-Smfjgkqxul-Njrxnmdgk Tb] Cholecalciferol (Vitamin D3) 2,000 units PO DAILY 12/10/17 12/01/18 [Vitamin D3] Sulfamethox/Trimeth 800/160 0.5 tab PO DAILY 05/13/18 12/01/18 [Bactrim Ds] Acetaminophen [Tylenol] 650 mg PO Q6H PRN 12/01/18 12/01/18 Petrolatum,Wh/Carboxymethyl 1 gm MC BID #10 oint...g. 12/01/18 [Ora-Hesive Base Ointment] - Allergies Allergies/Adverse Reactions: Allergies Allergy/AdvReac Type Severity Reaction Status Date / Time No Known Drug Allergies Allergy Verified 12/01/18 09:43 - Social History Does the pt smoke?: No Smoking Status: Former smoker Does the pt drink ETOH?: Yes Does the pt have substance abuse?: No - Immunizations Immunizations are current?: No Immunizations: TDAP >10years/unknown - POLST Patient has POLST: No POLST Status: DNR PD ED PE NORMAL - Vitals Vital signs reviewed: Yes (hypertension ) - General General: Alert and oriented X 3, No acute distress, Well developed/nourished - HEENT HEENT: Atraumatic, PERRL, EOMI, Ears normal, Moist mucous membranes, Pharynx benign, Dentition benign, Other (There are deep ulcerations to the right side of the tongue X 2 one anterior and one posterior. They are each aobut 7mm round in size without surruonding erythema. ) - Neck Neck: Supple, no meningeal sign, No bony TTP, Other (tender submandibular adenopathy on the right. ) - Cardiac Cardiac: RRR, No murmur - Respiratory Respiratory: No respiratory distress, Clear bilaterally - Abdomen Abdomen: Soft, Non tender - Back Back: No CVA TTP, No spinal TTP - Derm Derm: Normal color, Warm and dry, No rash - Extremities Extremities: No deformity, No edema - Neuro Neuro: Alert and oriented X 3, wash test checker 2-12 intact, No motor deficit, No sensory deficit, Normal speech Eye Opening: Spontaneous Motor: Obeys Commands Verbal: Oriented GCS Score: 15 - Psych Psych: Normal mood, Normal affect Results - Vitals Vitals: Vital Signs - 24 hr 12/01/18 09:38 Temperature 36.1 C L Heart Rate 67 Respiratory 16 Rate Blood Pressure 147/80 H O2 Saturation 99 Oxygen O2 Source Room air - Labs Labs: Laboratory Tests 12/01/18 12/01/18 10:40 10:40 WBC 3.8 L RBC 3.40 L Hgb 12.5 Hct 35.7 L MCV 105.0 H MCH 36.8 H MCHC 35.0 RDW 13.7 Plt Count 199 MPV 8.4 Neut # (Auto) Not Reportable Lymph # (Auto) Not Reportable [place] # (Auto) Not Reportable Eos # (Auto) Not Reportable Baso # (Auto) Not Reportable Absolute Nucleated RBC Not Reportable Total Counted 100 Band Neuts % (Manual) 8 Abnorm Lymph % (Manual) 0 Metamyelocytes % 2 H Nucleated RBC % Not Reportable Neutrophils # (Manual) 2.5 Lymphocytes # (Manual) 0.6 L Monocytes # (Manual) 0.5 Eosinophils # (Manual) 0.1 Basophils # (Manual) 0.0 Differential Comment MANUAL DIFFERENTIAL Manual Slide Review Indicated Platelet Estimate NORMAL (130-450,000) Platelet Morphology NORMAL APPEARANCE RBC Morph Micro Appear 1+ MACROCYTOSIS Sodium 138 Potassium 3.8 Chloride 101 Carbon Dioxide 25 Anion Gap 12.0 BUN 10 Creatinine 0.9 Estimated GFR (MDRD) 62 L Glucose 106 H Calcium 9.3 Total Bilirubin 0.7 AST 21 ALT 15 Alkaline Phosphatase 113 Total Protein 7.0 Albumin 4.3 Globulin 2.7 Albumin/Globulin Ratio 1.6 Lipase 32 PD MEDICAL DECISION MAKING - ED course Complexity details: reviewed old records, reviewed results, re-evaluated patient, considered differential, d/w patient ED course: 68-year-old female distally history of mantle cell lymphoma has developed canker sores on the right side of her tongue and she is prescribed Kenalog and Orabase. Departure - Departure Disposition: 01 Home, Self Care Clinical Impression: Aphthous ulcer of mouth Condition: Stable Instructions: ED Canker Sore Follow-Up: Selena Ely MD [Primary Care Provider] - Prescriptions: Petrolatum,Wh/Carboxymethyl [Ora-Hesive Base Ointment] 1 gm MC BID #10 oint...g.
[2018-12-01 10:55] LABS: BASOPHILS % (AUTO) 0.5 %; EOSINOPHILS % (AUTO) 0.9 %; HGB - HEMOGLOBIN 12.5 g/dL (12.0-16.0); LYMPHOCYTES % (AUTO) 10.4 %; MEAN CORPUSCULAR HEMOGLOBIN 36.8 pg (27.0-31.0); MEAN PLATELET VOLUME 8.4 fL (7.9-10.8); MONOCYTES % (AUTO) 10.8 %; NEUTROPHILS % (AUTO) 77.4 %; PLT - PLATELET COUNT 199 10^3/uL (130-450); RED CELL DISTRIBUTION WIDTH 13.7 % (12.0-15.0); WHITE BLOOD COUNT 3.8 x10^3/uL (4.8-10.8)
[2018-12-01 11:05] LABS: ALBUMIN 4.3 g/dL (3.2-5.5); ALBUMIN/GLOBULIN RATIO 1.6 (1.0-2.2); BILIRUBIN,TOTAL 0.7 mg/dL (0.2-1.0); CALCIUM 9.3 mg/dL (8.5-10.3); CREATININE 0.9 mg/dL (0.4-1.0)
[2018-12-01 11:14] LABS: ABNORMAL LYMPHS % (MANUAL) 0 %
[2018-12-01 11:16] LABS: BAND NEUTROPHILS % (MANUAL) 8 %; BASOPHILS % (MANUAL) 1 %; EOSINOPHILS # (MANUAL) 0.1 10^3/uL (0-0.7); LYMPHOCYTES # (MANUAL) 0.6 10^3/uL (1.5-3.5); LYMPHOCYTES % (MANUAL) 15 %; METAMYELOCYTES % (MANUAL) 2 %; MONOCYTES # (MANUAL) 0.5 10^3/uL (0.0-1.0); NEUTROPHILS # (MANUAL) 2.5 10^3/uL (1.5-6.6); NEUTROPHILS % (MANUAL) 57 %
[2018-12-01 11:17] LABS: DIFFERENTIAL COMMENT MANUAL DIFFERENTIAL; PLATELET ESTIMATE, MANUAL NORMAL (130-450,000) (NORMAL); PLATELET MORPHOLOGY NORMAL APPEARANCE (NORMAL)
[2018-12-01 11:43] VITALS: BP 136/84
== END 2018-12-01 11:43 | disposition home or self-care (01) ==
LOC: ED 09:31
DX: K12.0 Recurrent oral aphthae (principal); R59.0 Localized enlarged lymph nodes; Z08 Encounter for follow-up examination after completed treatment for malignant neoplasm; Z85.72 Personal history of non-Hodgkin lymphomas; Z94.81 Bone marrow transplant status; Z87.891 Personal history of nicotine dependence
CPT/HCPCS: 36415; 80053; 83690; 85025; 99283

== ENCOUNTER 2019-02-04 11:11 | Outpatient (CLI) | payer MEDICARE, BC ==
[2019-02-04] MEDS ORDERED: IOPAMIDOL-300 100 ML VIAL ONE (11:23)
[2019-02-04] MEDS ORDERED: IOPAMIDOL-300 50 ML VIAL ONE (11:23)
[2019-02-04 11:50] LABS: CREATININE 1.1 mg/dL (0.4-1.0)
--- NOTE | 2019-02-04 15:17 | CT Report ---
Reason: ABDOMINAL PAIN Procedure Date: 02/04/2019 Accession Number: [id number] / [id number] Procedure: CT - Abdomen/Pelvis W CPT Code: FULL RESULT: EXAM: CT ABDOMEN AND PELVIS EXAM DATE: 02/04/2019 12:45 PM. CLINICAL HISTORY: Abdominal pain. COMPARISONS: ABDOMEN/PELVIS W/ 05/06/2018 1:13 PM. TECHNIQUE: Routine helical CT imaging was performed through the abdomen and pelvis. IV contrast: ISOVUE 300: 100 mL. Enteric contrast: Yes. Reconstructions: Coronal and sagittal. In accordance with CT protocol optimization, one or more of the following dose reduction techniques were utilized for this exam: automated exposure control, adjustment of mA and/or KV based on patient size, or use of iterative reconstructive technique. FINDINGS: Lung Bases: Unremarkable. Liver: Normal. No masses. Gallbladder/Bile Ducts: Status post cholecystectomy. Spleen: Normal. Pancreas: Normal. Adrenal Glands: Normal. Kidneys: Normal. No masses or hydronephrosis. Peritoneal Cavity/Bowel: There is focal segmental thickening of the colonic wall for a length of approximately 8 cm and engorgement of the vascular arcade of the distal sigmoid colon which demonstrates diverticulosis. No focal inflammation surrounding a diverticulum or abscesses is identified. No bowel obstruction. No free fluid, free air or adenopathy. The appendix is well visualized and normal. Pelvic Organs: The bladder and remaining visualized pelvic organs are within normal limits. Vasculature: No aneurysms or other significant abnormality. Bones: No significant abnormality. Other: None. IMPRESSION: Thickening of the distal sigmoid colon. While this segment of bowel demonstrates diverticulosis, the appearance is not suggestive of diverticulitis and favors colitis. Infectious, ischemic and inflammatory colitis share imaging appearance, thus correlation to clinical laboratory values and patient status is needed. [facility] The call report notification system was initiated by Dr. Manpreet Gusman at 02:59 PM on 02/04/2019. ADDENDUM: 02/04/19 15:58 We have attempted to get in touch with the office of Dr. Ely to discuss these nonemergent findings since 1 PM and have thus far been unsuccessful. Messages offering to discuss the case directly with the radiologist have been left with the office. 03:58 PM on 02/04/2019. We will continue to make ourselves available to the referring physician. The above call report findings were discussed with Selena Ely by Dr. Manpreet Gusman at 03:58 PM on 02/04/2019.
[2019-02-04] MEDS ORDERED: IOPAMIDOL-300 50 ML VIAL PO ONE (15:36)
[2019-02-04] MEDS ORDERED: IOPAMIDOL-300 100 ML VIAL IVP ONE (15:36)
== END 2019-02-04 11:12 | disposition home or self-care (01) ==
LOC: DI 11:11
PROVIDERS: ATTEND Internal Medicine
DX: R10.9 Unspecified abdominal pain (principal); K57.30 Diverticulosis of large intestine without perforation or abscess without bleeding; Z79.899 Other long term (current) drug therapy
CPT/HCPCS: 36415; 74177; 82565; Q9967

== ENCOUNTER 2019-02-19 12:57 | Day surgery (SDC) | payer MEDICARE, BC ==
[2019-02-19] MEDS ORDERED: LACTATED RINGERS 1,000 ML IV ONE (13:26)
[2019-02-19 13:38] LABS: BASOPHILS % (AUTO) 1.3 %; EOSINOPHILS % (AUTO) 1.3 %; LYMPHOCYTES % (AUTO) 17.2 %; MEAN CORPUSCULAR HEMOGLOBIN 32.8 pg (27.0-31.0); MEAN CORPUSCULAR VOLUME 99.5 fL (81.0-99.0); MEAN PLATELET VOLUME 8.8 fL (7.9-10.8); MONOCYTES % (AUTO) 0.1 %; NEUTROPHILS % (AUTO) 80.1 %; PLT - PLATELET COUNT 256 10^3/uL (130-450); RED BLOOD COUNT 3.04 10^6/uL (4.20-5.40); RED CELL DISTRIBUTION WIDTH 16.5 % (12.0-15.0); WHITE BLOOD COUNT 3.2 x10^3/uL (4.8-10.8)
[2019-02-19 13:39] LABS: ABNORMAL LYMPHS % (MANUAL) 0 %
[2019-02-19] MEDS ORDERED: LIDO GARGLE 30 ML BOTTLE ONE (14:03)
[2019-02-19] MEDS ORDERED: fentaNYL 250 MCG/5 ML VIAL IVP ONE (14:03)
[2019-02-19] MEDS ORDERED: MIDAZOLAM 2 MG/2 ML VIAL IVP ONE (14:03)
[2019-02-19 14:11] LABS: BAND NEUTROPHILS % (MANUAL) 16 %; BASOPHILS % (MANUAL) 1 %; LYMPHOCYTES # (MANUAL) 0.5 10^3/uL (1.5-3.5); LYMPHOCYTES % (MANUAL) 17 %; MONOCYTES # (MANUAL) 0.5 10^3/uL (0.0-1.0); NEUTROPHILS % (MANUAL) 48 %
[2019-02-19 14:13] LABS: DIFFERENTIAL COMMENT MANUAL DIFFERENTIAL; PLATELET ESTIMATE, MANUAL NORMAL (130-450,000) (NORMAL); PLATELET MORPHOLOGY 1+ LARGE PLATELETS (NORMAL)
[2019-02-19 15:18] VITALS: BP 121/50
== END 2019-02-19 12:58 | disposition home or self-care (01) ==
LOC: SDS 12:57
PROVIDERS: ATTEND Internal Medicine Gastroenterology
PROC: 0DBL8ZX Excision of Transverse Colon, Via Natural or Artificial Opening Endoscopic, Diagnostic (ICD-10-PCS; 2019-02-19)
PROC: 0DBK8ZX Excision of Ascending Colon, Via Natural or Artificial Opening Endoscopic, Diagnostic (ICD-10-PCS; 2019-02-19)
PROC: 0DBN8ZX Excision of Sigmoid Colon, Via Natural or Artificial Opening Endoscopic, Diagnostic (ICD-10-PCS; 2019-02-19)
PROC: 0DB98ZX Excision of Duodenum, Via Natural or Artificial Opening Endoscopic, Diagnostic (ICD-10-PCS; principal; 2019-02-19 14:00)
PROC: 0DB68ZX Excision of Stomach, Via Natural or Artificial Opening Endoscopic, Diagnostic (ICD-10-PCS; 2019-02-19 14:00)
DX: R10.13 Epigastric pain (principal); R10.32 Left lower quadrant pain; R93.5 Abnormal findings on diagnostic imaging of other abdominal regions, including retroperitoneum; K22.70 Barrett's esophagus without dysplasia; K21.9 Gastro-esophageal reflux disease without esophagitis; R19.7 Diarrhea, unspecified; D64.9 Anemia, unspecified; K63.3 Ulcer of intestine; K31.9 Disease of stomach and duodenum, unspecified; K44.9 Diaphragmatic hernia without obstruction or gangrene; K57.30 Diverticulosis of large intestine without perforation or abscess without bleeding; Z85.72 Personal history of non-Hodgkin lymphomas; C83.10 Mantle cell lymphoma, unspecified site
CPT/HCPCS: 43239; 45380; 45384; 85025; A9270; J3010; J7120

== ENCOUNTER 2019-04-20 13:30 | Outpatient (CLI) | payer MEDICARE, BC ==
--- NOTE | 2019-04-20 18:36 | CONSULTATION NOTE ---
Palliative Care Consultation - Referral Referring Provider: Dr. Jones Time of Visit: 2707-6099 Referral setting: [facility] [place] Referral Reason: Stage IV Mantle Cell Lymphoma/Goals of Care - Information Sources Records reviewed: Previous records reviewed History/Review of Systems obtained from: Patient Exam limitations: No limitations - History of Present Illness Brief History of Present Illness: This is a [place] 69-year-old woman who goes by the name of "Collins", Who has a history of mantle cell lymphoma, including autologous stem cell transplant in June 2017. Her stage IV mantle cell lymphoma involves the colon, spleen, and node since original diagnosis in November 2016. She has been on maintenance Rituxan since 09/2017 every 3 months, currently on hold due to acute gastrointestinal symptoms. Her latest PET scan on 02/2018 was negative for malignancy. The patient has had ongoing colitis-like symptoms, abdominal pain, intermittent diarrhea, and declining nutritional status. She most recently had a hospital stay at [facility] in March, for work-up because she has had ongoing shortness of breath, and cytopenias. 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 Her acute shortness of breath has been present since January of this year. She can only ambulate a few steps without needing to rest, and is concerned regarding ongoing deconditioning. At [facility] she was seen by pulmonology and infectious disease, they were looking at induced side effects from Bactrim versus viral infection. Her virology work up was negative. She has been on prednisone 40 mg, recently decreased to 35 mg last week. She has been frustrated without having a definitive answer, nor prognosis about pending She does feel she is improved since her hospitalization in March, at that point in time she was ready "to throw in the towel", she is hoping for some improvement in her quality of life. In review of her current status, she still continues to have intermittent diarrhea, often starting with soft followed by several watery stools. She is hesitant to use the Imodium, because of constipation. She has intermittent abdominal pain, sometimes fleeting and sometimes persistent with severe cramping, this is relieved somewhat by the morphine she takes 3 to 5 mg at a time. She presents today with oral candidiasis, her mouth is dry and uncomfortable, she has a thick white coating and vehicle white spots. She has been using the nystatin 4 times daily, without improvement. Her tongue also th ough has improved. She remains quite dyspneic with any kind of activity, has lower extremity weakness, has history of 2 falls with one with her legs just giving out. She appears quite frail, and frustrated as well as overwhelmed by her current constellation of symptoms. Palliative care meeting patient for the first time, to set rapport, patient presents with high symptom burden, no advanced care planning documents, and appears quite fragile.course to take. Today her pancytopenia, is worsened with decreased white count 1.7. She also presents with hypo-tension, and orthostatic findings and will be receiving fluids today. Medical/Surgical History - Past Medical History Cardiovascular: reports: Murmur Respiratory: reports: Shortness of breath Neuro: None Endocrine/Autoimmune: reports: None GI: reports: GERD, Ulcers, Chronic diarrhea : reports: None HEENT: reports: None Psych: reports: Depression, Anxiety Musculoskeletal: reports: Fatigue Derm: reports: None MRSA Hx?: No - Past Surgical History General: reports: Cholecystectomy Ortho: reports: Knee replacement, Other (broken ankle) /[employer]CHO[employer]: reports: Tubal ligation HEENT: reports: Cataracts, Tonsil/Adenoidectomy - Substance History Use: Uses substance without health or social issues: Alcohol (rarely) Social History - Living Situation Living arrangement: At home Living Situation: With spouse/s.o. 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 She has a son who is 39 here in [facility] who is of support, as well as a sister who is younger. Reports has some health problems as well, but is hanging in there with her. They have been 40+ years. Family History - Family History Family History: Mother: , Father: , Cancer (pancreatic), Sister: Alive and Well Medications/Allergies - Medications Home Medications: Ambulatory Orders Medication Instructions Recorded Confirmed Valacyclovir HCl [Valtrex] 500 mg PO BID 01/02/17 04/21/19 raNITIdine [Zantac] 150 mg PO DAILY 09/17/17 04/21/19 B12/Levomefolate Calcium/B-6 1 tab PO DAILY 12/10/17 04/21/19 [Wjuhx-Babfujpclw-Gfkjsrcuz Tb] Cholecalciferol (Vitamin D3) 2,000 units PO DAILY 12/10/17 04/21/19 [Vitamin D3] Acetaminophen [Tylenol] 650 mg PO Q6H PRN 12/01/18 04/21/19 Petrolatum,Wh/Carboxymethyl 1 gm MC BID #10 oint...g. 12/01/18 04/21/19 [Ora-Hesive Base Ointment] Omeprazole 20 mg PO DAILY 02/23/19 04/21/19 Nystatin Suspension 5 ml ORAL QID MDD hold for diflucan 03/16/19 04/21/19 Morphine Sulfate/0.9% NaCl/Pf 3 - 5 mg PO Q4HR PRN 03/30/19 04/21/19 [Morphine 5 mg/5 ml-0.9% NaCl] Dapsone 2 tab PO BID 30 Days #120 tablet 03/31/19 04/21/19 Megestrol Acetate 625 mg PO DAILY 30 Days #150 ml 04/07/19 04/21/19 Fluconazole [Diflucan] 100 mg PO DAILY MDD 7 days 04/21/19 04/21/19 Loperamide [Imodium] 2 mg PO PRN PRN 04/21/19 04/21/19 Morphine Sulfate 2 - 5 mg PO Q3HR PRN 04/21/19 04/21/19 Morphine Sulfate/0.9% NaCl/Pf 3 - 5 mg PO Q4HR PRN MDD suspension 04/21/19 04/21/19 [Morphine 5 mg/5 ml-0.9% NaCl] predniSONE [Prednisone] 35 mg PO DAILYWM 04/21/19 04/21/19 - Allergies Allergies/Adverse Reactions: Allergies Allergy/AdvReac Type Severity Reaction Status Date / Time No Known Drug Allergies Allergy Verified 04/07/19 12:38 Review of Systems - Constitutional Constitutional: reports: Fatigue, Chills, Poor appetite. denies: Fever - Ears, Nose & Throat Ears, Nose & Throat: reports: Mouth lesions, Dry mouth - Cardiovascular Cardiovascular: reports: Lightheadedness, Exertional dyspnea, Decr. exercise tolerance - Respiratory Respiratory: reports: SOB with exertion. denies: SOB at rest - Gastrointestinal Gastrointestinal: reports: Abdominal pain, Diarrhea, Reflux/heartburn, Bloating, Poor appetite, Early satiety - Genitourinary Genitourinary: reports: Frequency - Musculoskeletal Musculoskeletal: reports: Muscle weakness, Assistive devices (uses walker) - Integumentary Integumentary: reports: Dryness - Neurological Neurological: reports: General weakness, Dizziness - Psychiatric Psychiatric: reports: Depression, Anxiety - Hematologic/Lymphatic Hematologic/Lymphatic: reports: Anemia - All Other Systems All Other Systems: reports: Reviewed and negative Physical Exam - Vital Signs Pulse Rate: 65 (reclined; 72 sitting; 92 standing) Respiratory Rate: 18 Blood Pressure: 97/54 (sitting;64/42 standing ) - Physical Exam General Appearance: positive: Mild distress Eyes Bilateral: positive: Normal inspection, Other (periorbital edema) ENT: positive: Other (oral candidiasis; white coating tongue; scattered white patches buccally) Neck: positive: No JVD, Trachea midline Cardiovascular: positive: Regular rate & rhythm Respiratory: positive: Diminished in bases. negative: Wheezes, Rales, Rhonchi Abdomen: positive: Nml bowel sounds, Tenderness Skin: positive: Pallor, Dryness Extremities: positive: No pedal edema Neurologic/Psychiatric: positive: Oriented x3, Weakness, Depressed mood/affect, Flat affect Palliative Care - POLST Patient has POLST: No POLST Status: Full Code Pain: Pain improved, Location (Patient is lower abdominal pain and cramping, is fluctuating in status, sometimes is exacerbated by eating.) Tiredness/Fatigue: Moderate (4-6) Drowsiness/Sedation: Mild (1-3) Nausea: Mild (1-3) Depression: Moderate (4-6) Anxiety: Moderate (4-6) Dyspnea: Moderate (4-6) Anorexia: Severe (7-10) (has improved some with restarting of Megace) Feelings of wellbeing/Perceived Quality of Life: Fair, Improved Performance Status: Patient is severely limited by her dyspnea, and fatigue. She does have in termittent dizziness, she does use her walker to get around. But needs frequent rest periods she is able to shower, but her is doing most household tasks and cooking. She is quite frustrated by this as she was playing pickle ball back in the spring, and showing her dogs. - Palliative Care Discussion: Patient quite reserved, did discuss was feeling like she did not want to "keep ongoing", as all the tests and things she has been 3 has not yielded any results. She does understand its all a "waiting game", is feeling quite concerned regarding her ability to return to her previous quality of life. She has not done any advanced care planning, we did talk about D BELINDAA, it would fall to her , she would like her sister to be her second. She will fill out the form. She has not had any conversations nor proceeded with any planning documents. We did discuss this could be something we worked on over the next few visits, she is in agreement. I did provide her with 5 wishes. Results - Lab Results Lab results reviewed: Yes Impression and Recommendations - Palliative Care Impression: This is a 69-year-old woman with known history of stage IV mantle cell lymphoma involving colon, spleen, and lymph nodes since 11/2016. She has had autologous stem cell transplant in 07/2017, and has been on maintenance Rituxan up to September of last year. Her most recent PET scan in February was negative for malignancy. She has had ongoing severe issues regarding ulcerations in her GI system, abdominal pain, diarrhea and nausea. At this point in time her symptoms are attributed to the Bactrim that was discontinued in March 2019. She still presents with high symptom burden, as well as functional decline. Palliative care to provide support regarding quality of life issues, anticipatory guidance and advanced care planning. Recommendations/Counseling Done: 1. Oral candidiasis. Consult with oncologist regarding patient's persistent candidiasis despite nystatin. Patient not currently on any chemotherapeutic/immunotherapeutic drugs. We will go ahead and initiate Diflucan 100 mg daily x7 days. 2. Diarrhea. Patient counseled to be more aggressive in the management of her diarrhea. She has been hesitant to use the Imodium in the context ofOf inducing constipation. Counseling provided regarding risk of uncontrolled diarrhea including dehydration, further functional decline and loss of electrolytes. Instructed on first watery stool to aggressively take her Imodium, if not effective to please contact and we can switch to Lomotil. Patient verbalized understanding. 3. Dehydration. Patient has been pushing fluids, suspect also related to her frequent diarrhea. Counseling provided regarding strategies to increase fluids into her diet, including pudding, popsicles, and moist foods. Also encouraged to dilute Ensure supplements, may be adding to her cramping and discomfort. Patient is using Megace, does feel like this is improved it. She is no longer using the dronabinol will take that off her med list. 4. Depression. Patient expresses feelings of depressive symptoms, feels have been quite overwhelmed, this is somewhat improved. We will continue to explore and future visits, acknowledged and validated feelings of grief and loss regarding her decline in functional status. 5. Generalized weakness. This is multifactorial in origin, including her panc ytopenia's, and anemia. Now presenting with dehydration. Did encourage to pace activities, but not to the point of discomfort. 6. Abdominal pain. Patient unable to relay prescription, reports 5mml/5 ml. This is what is in the chart. Did provide prescription of 120 mils. Encouraged to take morphine when pain starts to climb, counseling provided regarding it takes 15 to 20 minutes for her to work. Pain can be fatiguing as well. We will continue to monitor. 7. Advanced care planning. Introduced advanced care planning documents, she will fill out D POA will complete at next visit. Initiate conversation regarding goals of care, she is hoping for better quality of life, and return to her previous level of functioning in which she enjoys playing pickle ball and showing her dog. Palliative care introduced role, and setting of rapport Time Spent: 75 minutes was given 50% of this done in counseling regarding pain and symptom management, palliative care role, Introduced advanced care planning.
== END 2019-04-20 13:31 | disposition home or self-care (01) ==
LOC: PC 13:30
PROVIDERS: ATTEND Nurse Practitioner Adult Health
DX: Z51.5 Encounter for palliative care (principal); C83.19 Mantle cell lymphoma, extranodal and solid organ sites; Z94.84 Stem cells transplant status; R06.00 Dyspnea, unspecified; K52.9 Noninfective gastroenteritis and colitis, unspecified; B37.0 Candidal stomatitis; D61.818 Other pancytopenia; K21.9 Gastro-esophageal reflux disease without esophagitis; F32.9 Major depressive disorder, single episode, unspecified; F41.9 Anxiety disorder, unspecified; R53.83 Other fatigue; R10.30 Lower abdominal pain, unspecified; M62.81 Muscle weakness (generalized); R42 Dizziness and giddiness; K28.9 Gastrojejunal ulcer, unspecified as acute or chronic, without hemorrhage or perforation; I95.9 Hypotension, unspecified; R11.0 Nausea; E86.0 Dehydration; Z91.81 History of falling; Z79.891 Long term (current) use of opiate analgesic; Z79.52 Long term (current) use of systemic steroids; Z79.899 Other long term (current) drug therapy; Z96.659 Presence of unspecified artificial knee joint
CPT/HCPCS: 99205

== ENCOUNTER 2019-05-04 12:55 | Outpatient (CLI) | payer MEDICARE, BC ==
--- NOTE | 2019-05-04 16:23 | CONSULTATION NOTE ---
Palliative Care Follow Up - Referral Referring Provider: Dr. Valentín Jones Time of Visit: [id number] [place] [facility] [place] Reason: Stage IV Mantle Cell Lymphoma/Oral Candidiasis/Goals of care - Information Sources Records reviewed: Previous records reviewed History/Review of Systems obtained from: Patient Exam limitations: No limitations - History of Present Illness Update Brief HPI Update: This is a [place] 69-year-old woman who has a history of mantle cell lymphoma including autologous stem cell transplant in June 2017. Her stage IV mantle cell lymphoma involves the colon, spleen, and nodes. She has been on maintenance Rituxan since 09/2017 every 3 months, but is currently on hold related to an acute exacerbation of GI symptoms. Her latest PET scan on 02/2019 was negative for malignancy. The patient has had ongoing colitis-like symptoms, abdominal pain, intermittent diarrhea and declining nutritional status. She also has had severe shortness of breath, limiting as far as ambulation, activity tolerance, and significant impact on her quality of life. Her recent stay at [facility] 03/2019 was seen both by pulmonology and infectious disease, unable to find the etiology, they did discontinue her Bactrim. She has had a slow improvement of her GI symptoms, but no improvement of her dyspnea. She is now only needing to use the Imodium about every other day, she is still needing the morphine for escalating abdominal pain but this is decreased to 1 time a day as well with good relief. She has been eating better, but continues to be challenged by dehydration, has been receiving weekly hydration. She does feel like she is getting somewhat stronger, continues to walk with a walker, but her dyspnea particularly around ADLs continues to be quite limiting. Patient struggles with no underlying known etiology, has wanted to limit testing, and is concerned regarding prognosis. Unfortunately no one actually understands what is going on for her perception, she is hoping for the best with some improvement, she has been worsening anemia neutropenia, she has a history of pneumocystis pneumonia 06/2018 so has been on dapsone versus Bactrim. And presented with humoral immunodeficiency, with now receiving IVIG. Palliative care is been asked to provide support, anticipatory guidance, adva nced care planning and symptom management. Social History - Living Situation Living arrangement: At home Living Situation: With spouse/s.o. Support System: Patient retired about 9 years ago, she is supported by her who has some health problems as well, they have been 40+ years. Medications/Allergies - Medications Home Medications: Ambulatory Orders Medication Instructions Recorded Confirmed Valacyclovir HCl [Valtrex] 500 mg PO BID 01/02/17 05/04/19 raNITIdine [Zantac] 150 mg PO DAILY 09/17/17 05/04/19 B12/Levomefolate Calcium/B-6 1 tab PO DAILY 12/10/17 05/04/19 [Fwqwi-Ndyhqzcazw-Muriynmck Tb] Cholecalciferol (Vitamin D3) 2,000 units PO DAILY 12/10/17 05/04/19 [Vitamin D3] Acetaminophen [Tylenol] 650 mg PO Q6H PRN 12/01/18 05/04/19 Petrolatum,Wh/Carboxymethyl 1 gm MC BID #10 oint...g. 12/01/18 05/04/19 [Ora-Hesive Base Ointment] Omeprazole 20 mg PO DAILY 02/23/19 05/04/19 Nystatin Suspension 5 ml ORAL QID PRN 03/16/19 05/04/19 Dapsone 2 tab PO BID 30 Days #120 tablet 03/31/19 05/04/19 Megestrol Acetate 625 mg PO DAILY 30 Days #150 ml 04/07/19 05/04/19 Loperamide [Imodium] 2 mg PO PRN PRN 04/21/19 05/04/19 Morphine Sulfate 5 - 10 mg PO Q3HR PRN 04/21/19 05/04/19 predniSONE [Prednisone] 30 mg PO DAILYWM 04/21/19 05/04/19 - Allergies Allergies/Adverse Reactions: Allergies Allergy/AdvReac Type Severity Reaction Status Date / Time No Known Drug Allergies Allergy Verified 04/07/19 12:38 Review of Systems - Constitutional Constitutional: reports: Fatigue, Weight stable (150). denies: Fever, Chills, Malaise - Ears, Nose & Throat Ears, Nose & Throat: reports: Dry mouth - Cardiovascular Cardiovascular: reports: Exertional dyspnea, Decr. exercise tolerance, Orthopnea - Respiratory Respiratory: reports: SOB with exertion. denies: Cough, Wheezing, SOB at rest - Gastrointestinal Gastrointestinal: reports: Diarrhea (needing immodium only every other day about one time; much improved), Early satiety. denies: Nausea, Reflux/heartburn - Genitourinary Genitourinary: denies: Incontinence - Musculoskeletal Musculoskeletal: reports: Muscle weakness - Integumentary Integumentary: reports: Dryness - Neurological Neurological: reports: General weakness, Dizziness (with activity/dyspnea), Memory problems (mild), Abnormal gait (limited by dyspnea) - Psychiatric Psychiatric: reports: Depression, Anxiety - Hematologic/Lymphatic Hematologic/Lymphatic: reports: Anemia, Bruising, Recurrent infections - All Other Systems All Other Systems: reports: Reviewed and negative Physical Exam - Vital Signs Temperature: 36.5 C Pulse Rate: 79 (with ambulation increase 100; quick recovery) Respiratory Rate: 18 O2 Saturation: 98 (at rest; with ambulation decreased to 96% with quick recover) Blood Pressure: 113/70 - Physical Exam General Appearance: positive: No acute distress, Alert Eyes Bilateral: positive: Normal inspection, Other (periorbital mild edema) ENT: positive: Other (candidiasis much improved; tongue lesion almost healed; slight white coating) Neck: positive: No JVD, Trachea midline Cardiovascular: positive: Regular rate & rhythm Respiratory: positive: Diminished in bases (left greater than right). negative: Wheezes, Rales, Rhonchi Abdomen: positive: Soft, Nml bowel sounds Skin: positive: Pallor, Dryness, Bruising Extremities: positive: No pedal edema Neurologic/Psychiatric: positive: Oriented x3, Mood/affect nml, Weakness, Flat affect Palliative Care - POLST Patient has POLST: No POLST Status: DNR (patient expressed her wishes for DNR) Pain: Pain improved, Location (She reports pain mid abdominal, is now taking her morphine 10 mg as soon as it starts to escalate. She reports this is happening about 1 time a day, originally had been happening in the a.m., now she finds as late in the afternoon. It is not correlated at all with eating or any activities. She does report though overall it is improved.) Tiredness/Fatigue: Severe (7-10) Drowsiness/Sedation: Moderate (4-6) Nausea: None Depression: Moderate (4-6) Anxiety: Moderate (4-6) Dyspnea: Severe (7-10), Comment (Patient reports showering was equally difficult today, she was started feeling strong, but by end of the shower was panting/gulping for air. She reports does not take much to escalate or bring on severe dyspnea. Is not associated with cough, wheezing, tightness or irregular heartbeat.) Anorexia: Moderate (4-6) (improved) Sleep: Variable sleep pattern Feelings of wellbeing/Perceived Quality of Life: Fair, Acceptable, Improved Performance Status: Patient continues to be limited by her dyspnea, making significant difficulty for her to shower, particularly with raising her hands over the head. She does have intermittent dizziness, does use her walker to get around. She does need frequent rest periods she has not been able to participate in household tasks. Is most disappointed by not being able to do show her dogs. She was playing [employer] ball back in the spring, and felt like her quality of life was much more enjoyable at that point in time, she feels very limited currently. - Palliative Care Discussion: Patient is somewhat discouraged by her lack of known etiology for her fatigue, anemia and dyspnea. She is feeling somewhat hopeful, she has had some slow improvement. She continues to be frustrated by the lack of information regarding prognosis. She perceives her quality of life currently is quite limited, we have agreed to work on advanced care planning. Patient does feel like she would like to be a DNA R, we did discuss at length though this is do not treat. This still allows for treatment of reversible conditions, if she wants to weigh benefits and burdens of interventions or testing in the future, counseling provided regarding the POLST, and encouragement to talk to her and family regarding this. Results - Lab Results Lab results reviewed: Yes Impression and Recommendations - Palliative Care Impression: This is a 69-year-old woman with known history of stage IV mantle cell lymphoma involving the colon, spleen, and lymph nodes since 11/2016. She has had autologous stem cell transplant in 07/2017. Her most recent PET scan in February was negative for malignancy. She has had some mild improvement in her GI symptoms, but continues with fatigue and severe dyspnea. She is quite distressed with her ongoing functional decline. Palliative care to provide support regarding quality of life issues, anticipatory guidance, and advanced care planning. Recommendations/Counseling Done: 1. Oral candidiasis. Patient did respond well to the Diflucan 100 mg daily x7 days, only slight coating on her tongue. Patient currently continues on the prednisone 30 mg daily, instructed to continue with the nystatin 5 mils 2-3 times a day for maintenance. Would like to avoid further Diflucan if possible. 2. Diarrhea. Patient has been more aggressive as well as had some resolution of her diarrhea. She has been using the Imodium with loose stools, now down to every other day. 3. Abdominal pain. Patient taking morphine 10 mg about 1 time a day, with good relief. She is taking at the beginning of the escalation of her pain, was originally in the a.m., now seems to be more in the afternoon. There seems to be no correlation with eating, or pattern. She is feeling better with more aggressive pain management. 4. Dehydration. Patient continued to receive weekly IV fluids, reports it gives her "a pop" of energy. She is using the Megace, reports her intake is much better, continues to push fluids. 5. Depression. Patient actually is on antidepressant, was not on her medication list. She is currently being treated with citalopram. Counseling provided regarding validating feelings of grief and loss regarding decline in functional status. 6. Fatigue. This is multifactorial in origin, including her pancytopenia's and anemia, dehydration, and now presenting with deconditioning. Counseling provided regarding pace activities and increase ambulation as tolerated. 7. Advanced care planning. Counseling provided regarding review of the continuum of care, POLST, patient would like to be a DNA R but continue to treat reversible conditions. Her hope is to be able to return to previous level of functioning where she enjoys playing pickle ball and showing her dog. Palliative care to continue provide support and counseling regarding anticipatory guidance. Time Spent: 45 minutes with greater than 50% of this done in counseling regarding symptom management, advanced care planning, and anticipatory guidance.
== END 2019-05-04 12:56 | disposition home or self-care (01) ==
LOC: PC 12:55
PROVIDERS: ATTEND Nurse Practitioner Adult Health
DX: Z51.5 Encounter for palliative care (principal); C83.19 Mantle cell lymphoma, extranodal and solid organ sites; B37.0 Candidal stomatitis; Z66 Do not resuscitate; R06.00 Dyspnea, unspecified; R42 Dizziness and giddiness; R53.83 Other fatigue; D64.9 Anemia, unspecified; Z94.84 Stem cells transplant status; R19.7 Diarrhea, unspecified; R10.9 Unspecified abdominal pain; E86.0 Dehydration; E87.6 Hypokalemia; D80.9 Immunodeficiency with predominantly antibody defects, unspecified; R32 Unspecified urinary incontinence; R26.9 Unspecified abnormalities of gait and mobility; F32.9 Major depressive disorder, single episode, unspecified; F41.9 Anxiety disorder, unspecified; Z79.891 Long term (current) use of opiate analgesic; Z79.52 Long term (current) use of systemic steroids; Z79.899 Other long term (current) drug therapy; Z87.01 Personal history of pneumonia (recurrent)
CPT/HCPCS: 99215

== ENCOUNTER 2019-05-11 12:31 | Outpatient (CLI) | payer MEDICARE, BC ==
--- NOTE | 2019-05-11 18:09 | CONSULTATION NOTE ---
Palliative Care Follow Up - Referral Referring Provider: Dr. Valentín Jones Time of Visit: 12:45-13:30 Referral setting: [facility] [place] Reason: Stage IV Mantle Cell Lymphoma/Goals of Care - Information Sources Records reviewed: Previous records reviewed History/Review of Systems obtained from: Patient Exam limitations: No limitations - History of Present Illness Update Brief HPI Update: A [place] 69-year-old woman has a history of mantle cell lymphoma including autologous stem cell transplant, her lymphoma involves the colon, spleen, and nodes. She is currently in remission, from her latest PET scan on 02/2019. Unfortunately patient has had ongoing colitis-like symptoms, abdominal pain, diarrhea, declining nutritional status. Her most significant symptom though actually is her dyspnea, it does limit severely her quality of life, her activity tolerance, and keeps her fairly homebound. She had a recent stay at [facility] and 03/2019 seen both by pulmonology and infectious disease, continue to unable to find a etiology, they did discontinue her Bactrim. She continues to improve, she is down to rarely using Imodium, abdominal pain is resolving, she is having regular bowel movements. Her appetite is improved, that she continues to have ongoing issues regarding her fluid status. Though she does states she is drinking at least two 16 ounce fluids bottles of water daily, as well as her regular fluid intake. She has been receiving fluids weekly, they are getting increases to 2 times a week. Her oral candidiasis is improved, though her anemia remains problematic. She has been somewhat discouraged, over her ongoing functional decline, but is feeling somewhat hopeful the day as she has had improvement of her symptoms over this last week. She did see the oncologist today, no further change in treatment plans, other than replace her potassium, increase her fluids to twice a week, and continue to monitor. Palliative care is asked to provide support, anticipatory guidance, advanced care planning and symptom management. Social History - Living Situation Living arrangement: At home Living Situation: With spouse/s.o. Support System: Patient lives with her , who has ongoing health problems as well. They have been 40+ years. She reports her sister whom she is quite close to, is very supportive of patient. Medications/Allergies - Medications Home Medications: Ambulatory Orders Medication Instructions Recorded Confirmed Valacyclovir HCl [Valtrex] 500 mg PO BID 01/02/17 05/11/19 raNITIdine [Zantac] 150 mg PO DAILY 09/17/17 05/11/19 B12/Levomefolate Calcium/B-6 1 tab PO DAILY 12/10/17 05/11/19 [Qeqiy-Ddgpllxebj-Ycgxxxovu Tb] Cholecalciferol (Vitamin D3) 2,000 units PO DAILY 12/10/17 05/11/19 [Vitamin D3] Omeprazole 20 mg PO DAILY 02/23/19 05/11/19 Nystatin Suspension 5 ml ORAL QID PRN 03/16/19 05/11/19 Dapsone 2 tab PO BID 30 Days #120 tablet 03/31/19 05/11/19 Megestrol Acetate 625 mg PO DAILY 30 Days #150 ml 04/07/19 05/11/19 Loperamide [Imodium] 2 mg PO PRN PRN 04/21/19 05/11/19 Morphine Sulfate 5 - 10 mg PO Q3HR PRN 04/21/19 05/11/19 predniSONE [Prednisone] 30 mg PO DAILYWM 04/21/19 05/11/19 Citalopram [CeleXA] 20 mg PO DAILY 05/11/19 05/11/19 Hydrocortisone 10 mg PO DAILY 05/11/19 05/11/19 - Allergies Allergies/Adverse Reactions: Allergies Allergy/AdvReac Type Severity Reaction Status Date / Time No Known Drug Allergies Allergy Verified 05/11/19 11:57 Review of Systems - Constitutional Constitutional: reports: Fatigue, Weight stable. denies: Fever, Chills - Ears, Nose & Throat Ears, Nose & Throat: reports: Other (mouth improved; still doing nystatin TID) - Cardiovascular Cardiovascular: reports: Exertional dyspnea, Decr. exercise tolerance - Respiratory Respiratory: reports: SOB at rest, SOB with exertion. denies: Cough - Gastrointestinal Gastrointestinal: reports: Good appetite. denies: Abdominal pain (occasional use of MS only now), Diarrhea, Rectal bleeding, Nausea, Reflux/heartburn - Musculoskeletal Musculoskeletal: reports: Muscle weakness, Assistive devices (uses walker), Other (had fall where legs gave out; no dizzyness or lightheadedness) - Integumentary Integumentary: reports: Dryness - Neurological Neurological: reports: General weakness, Memory problems (mild) - Psychiatric Psychiatric: reports: Depression, Anxiety - Hematologic/Lymphatic Hematologic/Lymphatic: reports: Anemia, Bruising (from fall) - All Other Systems All Other Systems: reports: Reviewed and negative Physical Exam - Physical Exam General Appearance: positive: No acute distress Eyes Bilateral: positive: Normal inspection ENT: positive: Oral lesions (tongue lesion almost resolved), Other (slight white coating on tongue) Neck: positive: Trachea midline Cardiovascular: positive: Regular rate & rhythm Respiratory: positive: Other (reports respiratory distress this am with showering; "gasping"; now recovered but feels "spent") Abdomen: positive: Soft Skin: positive: Pallor, Dryness, Bruising Extremities: positive: No pedal edema Neurologic/Psychiatric: positive: Oriented x3, Weakness, Depressed mood/affect Palliative Care - POLST Patient has POLST: Yes POLST Status: DNR, Selective Treatment (completed at visit) Pain: Pain improved, Location (abdominal lower) Tiredness/Fatigue: Moderate (4-6) Drowsiness/Sedation: Mild (1-3) Nausea: None Depression: Mild (1-3) Anxiety: Mild (1-3) Dyspnea: Severe (7-10) Anorexia: Mild (1-3) Constipation: No Feelings of wellbeing/Perceived Quality of Life: Fair, Acceptable, Improved - Palliative Care Discussion: Patient is feeling somewhat more hopeful, though does recognize her decline and concerned about her seriousness of her illness. She did talk to her family about the POLST, and her goals of care. We reviewed this counseling today, her goals are to focus on quality of life, she would still treat reversible conditions weighing benefits and burdens not only of treatment but also testing, support and to her to spend time with her family and at end of life she would like to be home with hospice. She is selected do not attempt resuscitation/allow natural /DNI. She would like selective treatment, with treating medical conditions while avoiding burdensome measures. She would at this point except antibiotics, as well as depending on the goals consider nutritional support if it made sense in the context of the condition is being treated. Her primary D POA would by default the Eric Vidal her [phone]. She would like to designate a second follow-up which would be her sister Caridad GHOTRA SHANNAN [phone]. Discussed we did need to have this done formally in a D POA document, she will bring completed for next time. We did discuss decreasing stressors, which does need frequent visits to the clinic. Will explore and follow-up with patient if home hydration would be an option and/ or the cost. Call into [facility]. Results - Lab Results Lab results reviewed: Yes Impression and Recommendations - Palliative Care Impression: This is a 69-year-old woman with known history of stage IV mantle cell lymphoma, involving colon spleen and lymph nodes since 11/2016. She has had a autologous stem cell transplant in 07/2017, with her most recent PET scan this last February negative for malignancy. She has had some improvement of her GI symptoms, which are of unknown etiology but continues with fatigue and severe dyspnea that limits her activity. She is looking forward to initiating physical therapy, she will call me if referral does not go through. We did complete her POLST today. Relative care to continue provide support regarding quality of life issues, anticipatory guidance, and advanced care planning. Recommendations/Counseling Done: 1. Oral candidiasis. Patient is being maintained on nystatin 5 mils 3 times a day, her ulcer is healed in her mouth, she still has slight white tongue. And she is continuing on steroids, recommended she continue on the nystatin. 2. Diarrhea. Patient has very few loose stools now is doing much better. She is much pleased. 3. Abdominal pain. Patient has not needed morphine more than once in every 3 days now she does get good relief if she needs it. She is feeling much encouraged. We also discussed stopping her dicyclomine, it was not on her medication list, she will titrate down, and discontinue, she is fatigued with pill burden. 4. Dehydration. Patient continues to receive weekly IV fluids, she will now increase that to twice a week. We did discuss in the context of better use of time and energy, will explore if home I hydration a option. 5. Dyspnea. This remains somewhat confusing as far as her etiology, she is anemic, mild dehydration, and deconditioning. She is hoping with conditioning, this will improve. Counseling continue to provide regarding pace activities increase ambulation as tolerated. 7. Advanced care planning. Counseling provided regarding completion of the POLST, she is hoping to continue to improve, she would like her sister to be her secondary D POA, she will complete the paperwork. We will continue to provide ongoing support, and counseling regarding anticipatory guidance Time Spent: 45 minutes with getting 50% of this done in counseling regarding symptom management, advanced care planning and anticipatory guidance, coordination of care with oncologist
== END 2019-05-11 12:32 | disposition home or self-care (01) ==
LOC: PC 12:31
PROVIDERS: ATTEND Nurse Practitioner Adult Health
DX: Z51.5 Encounter for palliative care (principal); C83.19 Mantle cell lymphoma, extranodal and solid organ sites; B37.0 Candidal stomatitis; R10.9 Unspecified abdominal pain; E86.0 Dehydration; Z66 Do not resuscitate; R06.00 Dyspnea, unspecified; R53.83 Other fatigue; D64.9 Anemia, unspecified; Z94.84 Stem cells transplant status; R26.9 Unspecified abnormalities of gait and mobility; F32.9 Major depressive disorder, single episode, unspecified; F41.9 Anxiety disorder, unspecified; M62.81 Muscle weakness (generalized); Z79.891 Long term (current) use of opiate analgesic; Z79.52 Long term (current) use of systemic steroids; Z79.899 Other long term (current) drug therapy; Z87.01 Personal history of pneumonia (recurrent)
CPT/HCPCS: 99215

== ENCOUNTER 2019-05-21 12:48 | Outpatient (CLI) | payer MEDICARE, BC ==
--- NOTE | 2019-05-25 08:31 | CONSULTATION NOTE ---
Palliative Care Follow Up - Referral Referring Provider: Dr. Valentín oJnes Time of Visit: [id number] Ref[place] setting: [facility] [place] Reason: Hypoxia/Stage IV Mantle Cell Lymphoma - Information Sources Records reviewed: Previous records reviewed History/Review of Systems obtained from: Patient Exam limitations: No limitations - History of Present Illness Update Brief HPI Update: This is a [place] 69-year-old woman has a history of mantle cell lymphoma and involving the colon, spleen, and nodes. She does have a history of autologous stem cell transplant in June 2017. She has been having progressive shortness of breath, limiting as far as ambulation, activity tolerance, and significant impact on her quality of life. She had a recent stay at [facility] and 03/2019 was seen both by pulmonology and infectious disease unable to find the etiology, they did discontinue her Bactrim. 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 She is currently on dapsone 50 mg p.o. twice daily for prophylaxis. She is discontinued off the Bactrim because she was having severe GI symptoms including ulceration of the mouth, soreness, abdominal pain and cramping, and severe diarrhea. This is been slowly resolving, she is only had intermittent abdominal pain. Patient has been having worsening anemia, signs of the hemolysis, neutropenia of unclear etiology. She is currently on prednisone she is been tapered down to 30 mg, she does present with somewhat of a villalpando face. Today she presents in severe respiratory compromise, she is hypoxic at rest with room air O2 sats of 86%. She reports it was worsening this morning about 84% was having trouble keeping it up. I did have them put 2 L of oxygen on her by nasal cannula with her sats improved to 93%, with ambulation on 2 L her O2 sats were 92%. She did feel much better. She reports she has had a dry nonproductive cough for about a week and a half, she has been feeling much more weak, including a fall for which she was on the floor for about an hour and a half. She has been eating much better, except for the last 2 days. She is feeling quite discouraged. She is very much hoping to avoid an emergency room visit and or hospitalization. We agreed to order home oxygen and try a chest x- ray to rule out pneumonia. She did feel better after her IV fluids and her iron transfusion, she was much more bit able to ambulate, her dyspnea was improved on the oxygen. Her underlying respiratory rate is about 20, she is breathing much easier on the oxygen. She does have decreased breath sounds in the bases, no wheezing, crackles, or rhonchi. Unfortunately her chest x-ray did show an impression of a curvilinear opacity in the right lung, with concern in the clinical setting of a compromised immune status this could represent opportunistic infection and concern for recurrent pneumocystis. Recommended further evaluation by noncontrast chest CT. I did call Dr. Jones her oncologist, given patient's history, and her shortness of breath, he would like actually to have a CT scan of angiogram done of the chest, to rule out any pulmonary emboli as she is at high risk with her underlying diagnoses. Also, if concerns may need transfer to [place]. In conversation with patient, she did agree actually to further follow-up, recognizing again this is doing quite frustrating for her to not have any underlying etiology for her ongoing difficulties with breathlessness, needing recurrent hydration, ongoing functional decline, now with increasing symptom burden. Social History - Living Situation Living arrangement: At home Living Situation: With spouse/s.o. Support System: Patient lives at home with her who is been having ongoing health problems as well. They have been for over 40 years, she also has a sister whom she is quite close to and is very supportive of her patient. They live very close here to the hospital, in their own home. Medications/Allergies - Medications Home Medications: Ambulatory Orders Medication Instructions Recorded Confirmed Valacyclovir HCl [Valtrex] 500 mg PO BID 01/02/17 05/21/19 raNITIdine [Zantac] 150 mg PO DAILY 09/17/17 05/21/19 B12/Levomefolate Calcium/B-6 1 tab PO DAILY 12/10/17 05/21/19 [Idrif-Rgtczuslcm-Oqufrrbkl Tb] Cholecalciferol (Vitamin D3) 2,000 units PO DAILY 12/10/17 05/21/19 [Vitamin D3] Omeprazole 20 mg PO DAILY 02/23/19 05/21/19 Nystatin Suspension 5 ml ORAL QID PRN 03/16/19 05/21/19 Megestrol Acetate 625 mg PO DAILY 30 Days #150 ml 04/07/19 05/21/19 Loperamide [Imodium] 2 mg PO PRN PRN 04/21/19 05/21/19 Morphine Sulfate 5 - 10 mg PO Q3HR PRN 04/21/19 05/21/19 predniSONE [Prednisone] 30 mg PO DAILYWM 04/21/19 05/21/19 Citalopram [CeleXA] 20 mg PO DAILY 05/11/19 05/21/19 Hydrocortisone 10 mg PO DAILY 05/11/19 05/21/19 Dapsone 50 tab PO BID 05/21/19 05/21/19 - Allergies Allergies/Adverse Reactions: Allergies Allergy/AdvReac Type Severity Reaction Status Date / Time No Known Drug Allergies Allergy Verified 05/21/19 16:58 Review of Systems - Constitutional Constitutional: reports: Fatigue, Weakness, Poor appetite (for two days; had been improving). denies: Fever, Chills - Ears, Nose & Throat Ears, Nose & Throat: reports: Dry mouth. denies: Mouth lesions (resolved) - Cardiovascular Cardiovascular: reports: Exertional dyspnea, Decr. exercise tolerance - Respiratory Respiratory: reports: Cough (dry for 1 1/2 week) - Gastrointestinal Gastrointestinal: reports: Abdominal pain (improved but did need to take MS last night), Nausea (intermittent), Poor appetite, Early satiety. denies: Diarrhea - Musculoskeletal Musculoskeletal: reports: Muscle weakness, Assistive devices (using walker), Other (had fall yesterday; down for over an hour; agreed to [facility]) - Integumentary Integumentary: reports: Dryness - Neurological Neurological: reports: General weakness - Psychiatric Psychiatric: reports: Depression, Anxiety - Hematologic/Lymphatic Hematologic/Lymphatic: reports: Anemia, Bruising - All Other Systems All Other Systems: reports: Reviewed and negative Physical Exam - Vital Signs Temperature: 36.7 C Pulse Rate: 86 Respiratory Rate: 22 Blood Pressure: 103/64 (sitting; 82/48 laying) - Physical Exam General Appearance: positive: Alert, Moderate distress, Other (mild cushings noted) ENT: positive: Other (candidiasis improved; only slight white coating; ulcer healed) Neck: positive: No JVD, Trachea midline Cardiovascular: positive: Regular rate & rhythm Respiratory: positive: Diminished in bases, Other (patient with respiratory effort;). negative: Wheezes, Rales, Rhonchi Abdomen: positive: Soft, Nml bowel sounds, Distended Skin: positive: Pallor, Bruising (upper arims) Extremities: positive: No pedal edema Neurologic/Psychiatric: positive: Oriented x3, Weakness, Depressed mood/affect, Flat affect Palliative Care - POLST Patient has POLST: Yes POLST Status: DNR, Selective Treatment Pain: Pain improved, Location (lower abdominal) Tiredness/Fatigue: Severe (7-10) Drowsiness/Sedation: Severe (7-10) Nausea: Moderate (4-6) Depression: Severe (7-10) Anxiety: Severe (7-10) Dyspnea: Severe (7-10), Comment (patient did use some MS with some relief of distress) Anorexia: Moderate (4-6) Sleep: Variable sleep pattern Constipation: No Feelings of wellbeing/Perceived Quality of Life: Poor, Worsening Performance Status: Patient continues to decline functionally, much more weaker. She did have a fall was unable to get up off the ground. She gets severely dyspneic with raising her arms and any kind of showering. She did hire her scraper loader operator to help with housekeeping weekly, this is relieved some of her stress. She is quite befuddled by her rapid decline in her functional status since January as she was showing dogs and able to play pickle ball. - Palliative Care Discussion: Patient is somewhat distressed and anxious regarding her progressive dyspnea. She has been very discouraged as nobody has been able to give her any [id number] answers relating to the underlying etiology. She does have present more acutely today, she very much wants to avoid emergency room and or hospitalization. We did discuss in the context of at least treating her hypoxia, getting a chest x-ray, and I would follow-up with Dr. Jones for further recommendations. She was in agreement. Is discouraged as her GI symptoms have improved, she does feel much better after the fluids, but has not had any significant return to functional status. We have done her POLST as DNA R/selective treatments. She continues to weigh her decisions in the context of benefits and burdens. She has had significant amount of testing particularly in March, with not a lot of positive outcomes or information. But did agree given her acute change in status over the last 24-48 hrs. willing to revisit this. In discussing with patient's recommendations chest xray and Dr. Jones's recommendations, she did agree to ED visit Results - Lab Results Lab results reviewed: Yes Impression and Recommendations - Palliative Care Impression: This is a 69-year-old woman who presents acutely with hypoxia, shortness of breath, and increased weakness. She is feeling better with oxygen, after receiving fluids, and her iron transfusion. Given concerns identified on her chest x-ray, patient was then recommended to return to the ED. Patient continues to have high symptom burden, functional decline, and continued challenges related to her underlying disease process, and pancytopenia. Palliative care to continue to provide support regarding pain and symptom management, advanced care planning, and anticipatory guidance Recommendations/Counseling Done: 1. Dyspnea/hypoxia. Patient evaluated to respiratory therapy, and oxygen ordered through [facility]. Patient was hypoxic at rest, with room air oxygen sats of 86%. At rest on 2 L per nasal cannula her O2 sats improved to 93%, and with ambulation on 2 L her O2 sats were 92%. Her [id number] for oxygen completed and I am ordering home O2 at 2 L per nasal cannula continuously to treat her hypoxia, hx of pnumocystis jiroveci pneumonia infection, Stage IV Mantle Cell Lymphoma, and now with abnormal chest xray. Discussed in the context of comfort, that she can use her morphine 5 to 10 mg every 3-4 hours as needed for respiratory distress. She did find this helpful earlier in the day. Counseling provided also for pacing of activities, and safety. Patient has been sent to the ED for further follow-up and evaluation in addition of a CT angiogram gram of the chest via oncology, CT scan of the chest via radiology. Report called to Dr. Muñoz. 2. Generalized weakness. Patient is scheduled to start physical therapy, patient does have acute process going on but would benefit from continued focus on improving functional status.We will go ahead make referral to [facility], given patient's recent fall and unable to access help. Patient does have a walker, and will need portable oxygen for transport. 3. Depression. Patient is currently on citalopram, we did discuss given her acute changes in her health, the uncertainty that she is experiencing, counseling regarging normalizing feelings of situational grief and loss. Did korina will after we are past this acute crisis, can revisit if she needs her antidepressants titrated and or other support. Will offer the palliative care geriatric social work professor. Patient's is also getting a work-up, regarding of lung mass. There is lots of uncertainty in their life right now, he is her primary caregiver. 4. Oral candidiasis. Patient did complete her Diflucan with good results, she is now being maintained on nystatin 5 mils twice daily. Recommended she continue as she is still on her steroids. 5. Advanced care planning. Patient does have a POLST in place, her goals are to focus on quality of life, she is still willing to treat reversible conditions weighing benefits and burdens moving forward, spending time with her family, and end of life at home with hospice at that point. She is a DNA R/allow natural and selective treatments. Her D POA is her Eric Vidal [phone], with her Sister Caridad Gregory as back-up [phone]. We will continue to follow given the outcome of her acute symptoms today. Time Spent: 60 minutes with greater than 50% of this done in counseling and coordination of care with respiratory therapy, oncologist, ED, and clinical staff.
== END 2019-05-21 12:49 | disposition home or self-care (01) ==
LOC: PC 12:48
PROVIDERS: ATTEND Nurse Practitioner Adult Health
DX: Z51.5 Encounter for palliative care (principal); R09.02 Hypoxemia; C83.18 Mantle cell lymphoma, lymph nodes of multiple sites; R91.8 Other nonspecific abnormal finding of lung field; R53.1 Weakness; F32.9 Major depressive disorder, single episode, unspecified; B37.0 Candidal stomatitis; Z99.81 Dependence on supplemental oxygen; Z79.52 Long term (current) use of systemic steroids; Z66 Do not resuscitate
CPT/HCPCS: 94761; 99215

== ENCOUNTER 2019-05-21 15:28 | Outpatient (CLI) | payer MEDICARE, BC ==
--- NOTE | 2019-05-21 16:17 | XRAY Report ---
Reason: HYPOXIA,COUGH Procedure Date: 05/21/2019 Accession Number: [id number] / [id number] Procedure: XR - Chest 2 View X-Ray CPT Code: 23380 FULL RESULT: EXAM: CHEST RADIOGRAPHY EXAM DATE: 05/21/2019 03:53 PM. CLINICAL HISTORY: HYPOXIA,COUGH. COMPARISON: CHEST 1 VIEW 05/08/2018 4:11 PM. TECHNIQUE: 2 views. FINDINGS: Lungs/Pleura: Mild perihilar vascular congestion and prominent bronchovascular markings are suggestive of pulmonary edema. A curvilinear opacity seen in the right lung, in clinical setting of compromised immune status, this could represent a opportunistic infection such as pneumocystis. Further evaluation to be considered on noncontrast chest CT. No pleural effusion. No pneumothorax. Normal volumes. Mediastinum: Unchanged right Port-A-Cath noted. Heart and mediastinal contours are unremarkable. Other: None. IMPRESSION: A curvilinear opacity seen in the right lung, in clinical setting of compromised immune status, this could represent an opportunistic infection such as pneumocystis. Further evaluation to be considered on noncontrast chest CT. Mild pulmonary edema. RADIA The call report notification system was initiated by Dr. Gabriela Joya at 04:11 PM on 05/21/2019. The above call report findings were discussed with FRANCISCO Cm by Dr. Gabriela Joya at 04:12 PM on 05/21/2019.
--- NOTE | 2019-05-21 16:36 | CONSULTATION NOTE ---
Palliative Care Follow Up - Referral Referring Provider: Dr. Valentín Jones Time of Visit: [id number] Referral setting: [facility] – [place] Referral Reason: Hypoxia/Stage IV Mantle Cell Lymphoma - Information Sources Records reviewed: Previous records reviewed History/Review of Systems obtained from: Patient Exam limitations: No limitations - History of Present Illness Update Brief HPI Update: This is a [place] 69-year-old woman has a history of mantle cell lymphoma and involving the colon, spleen, and nodes. She does have a history of autologous stem cell transplant in June 2017. She has been having progressive shortness of breath, limiting as far as ambulation, activity tolerance, and significant impact on her quality of life. She had a recent stay at [facility] and 03/2019 was seen both by pulmonology and infectious disease unable to find the etiology, they did discontinue her Bactrim. 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 She is currently on dapsone 50 mg p.o. twice daily for prophylaxis. She is discontinued off the Bactrim because she was having severe GI symptoms including ulceration of the mouth, soreness, abdominal pain and cramping, and severe diarrhea. This is been slowly resolving, she is only had intermittent abdominal pain. Patient has been having worsening anemia, signs of the hemolysis, neutropenia of unclear etiology. She is currently on prednisone she is been tapered down to 30 mg, she does present with somewhat of a villalpando face. Today she presents in severe respiratory compromise, she is hypoxic at rest with room air O2 sats of 86%. She reports it was worsening this morning about 84% was having trouble keeping it up. I did have them put 2 L of oxygen on her by nasal cannula with her sats improved to 93%, with ambulation on 2 L her O2 sats were 92%. She did feel much better. She reports she has had a dry nonproductive cough for about a week and a half, she has been feeling much more weak, including a fall for which she was on the floor for about an hour and a half. She has been eating much better, except for the last 2 days. She is feeling quite discouraged. She is very much hoping to avoid an emergency room visit and or hospitalization. We agreed to order home oxygen and try a chest x- ray to rule out pneumonia. She did feel better after her IV fluids and her iron transfusion, she was much more bit able to ambulate, her dyspnea was improved on the oxygen. Her underlying respiratory rate is about 20, she is breathing much easier on the oxygen. She does have decreased breath sounds in the bases, no wheezing, crackles, or rhonchi. Unfortunately her chest x-ray did show an impression of a curvilinear opacity in the right lung, with concern in the clinical setting of a compromised immune status this could represent opportunistic infection and concern for recurrent pneumocystis. Recommended further evaluation by noncontrast chest CT. I did call Dr. Jones her oncologist, given patient's history, and her shortness of breath, he would like actually to have a CT scan of angiogram done of the chest, to rule out any pulmonary emboli as she is at high risk with her underlying diagnoses. Also, if concerns may need transfer to [facility]. In conversation with patient, she did agree actually to further follow-up, recognizing again this is doing quite frustrating for her to not have any underlying etiology for her ongoing difficulties with breathlessness, needing recurrent hydration, ongoing functional decline, now with increasing symptom burden. Social History - Living Situation Living arrangement: At home Living Situation: With spouse/s.o. Support System: Patient lives at home with her who is been having ongoing health problems as well. They have been for over 40 years, she also has a sister whom she is quite close to and is very supportive of her patient. They live very close here to the hospital, in their own home. Medications/Allergies - Medications Home Medications: Ambulatory Orders Medication Instructions Recorded Confirmed Valacyclovir HCl [Valtrex] 500 mg PO BID 01/02/17 05/21/19 raNITIdine [Zantac] 150 mg PO DAILY 09/17/17 05/21/19 B12/Levomefolate Calcium/B-6 1 tab PO DAILY 12/10/17 05/21/19 [Ggkur-Kvrwddytbr-Pylsjvbab Tb] Cholecalciferol (Vitamin D3) 2,000 units PO DAILY 12/10/17 05/21/19 [Vitamin D3] Omeprazole 20 mg PO DAILY 02/23/19 05/21/19 Nystatin Suspension 5 ml ORAL QID PRN 03/16/19 05/21/19 Megestrol Acetate 625 mg PO DAILY 30 Days #150 ml 04/07/19 05/21/19 Loperamide [Imodium] 2 mg PO PRN PRN 04/21/19 05/21/19 Morphine Sulfate 5 - 10 mg PO Q3HR PRN 04/21/19 05/21/19 predniSONE [Prednisone] 30 mg PO DAILYWM 04/21/19 05/21/19 Citalopram [CeleXA] 20 mg PO DAILY 05/11/19 05/21/19 Hydrocortisone 10 mg PO DAILY 05/11/19 05/21/19 Dapsone 50 tab PO BID 05/21/19 05/21/19 - Allergies Allergies/Adverse Reactions: Allergies Allergy/AdvReac Type Severity Reaction Status Date / Time No Known Drug Allergies Allergy Verified 05/11/19 11:57 Review of Systems - Constitutional Constitutional: reports: Fatigue, Weakness, Poor appetite (for two days; had been improving). denies: Fever, Chills - Ears, Nose & Throat Ears, Nose & Throat: reports: Dry mouth. denies: Mouth lesions (resolved) - Cardiovascular Cardiovascular: reports: Exertional dyspnea, Decr. exercise tolerance - Respiratory Respiratory: reports: Cough (dry for 1 1/2 week) - Gastrointestinal Gastrointestinal: reports: Abdominal pain (improved but did need to take MS last night), Nausea (intermittent), Poor appetite, Early satiety. denies: Diarrhea - Musculoskeletal Musculoskeletal: reports: Muscle weakness, Assistive devices (using walker), Other (had fall yesterday; down for over an hour; agreed to [facility]) - Integumentary Integumentary: reports: Dryness - Neurological Neurological: reports: General weakness - Psychiatric Psychiatric: reports: Depression, Anxiety - Hematologic/Lymphatic Hematologic/Lymphatic: reports: Anemia, Bruising - All Other Systems All Other Systems: reports: Reviewed and negative Physical Exam - Vital Signs Temperature: 36.7 C Pulse Rate: 86 Respiratory Rate: 22 Blood Pressure: 103/64 (sitting; 82/48 laying) - Physical Exam General Appearance: positive: Alert, Moderate distress, Other (mild cushings noted) ENT: positive: Other (candidiasis improved; only slight white coating; ulcer healed) Neck: positive: No JVD, Trachea midline Cardiovascular: positive: Regular rate & rhythm Respiratory: positive: Diminished in bases, Other (patient with respiratory effort;). negative: Wheezes, Rales, Rhonchi Abdomen: positive: Soft, Nml bowel sounds, Distended Skin: positive: Pallor, Bruising (upper arims) Extremities: positive: No pedal edema Neurologic/Psychiatric: positive: Oriented x3, Weakness, Depressed mood/affect, Flat affect Palliative Care - POLST Patient has POLST: Yes POLST Status: DNR, Selective Treatment Pain: Pain improved, Location (lower abdominal) Tiredness/Fatigue: Severe (7-10) Drowsiness/Sedation: Severe (7-10) Nausea: Moderate (4-6) Depression: Severe (7-10) Anxiety: Severe (7-10) Dyspnea: Severe (7-10), Comment (patient did use some MS with some relief of distress) Anorexia: Moderate (4-6) Sleep: Variable sleep pattern Constipation: No Feelings of wellbeing/Perceived Quality of Life: Poor, Worsening Performance Status: Patient continues to decline functionally, much more weaker. She did have a fall was unable to get up off the ground. She gets severely dyspneic with raising her arms and any kind of showering. She did hire her fish smoker to help with housekeeping weekly, this is relieved some of her stress. She is quite befuddled by her rapid decline in her functional status since January as she was showing dogs and able to play pickle ball. - Palliative Care Discussion: Patient is somewhat distressed and anxious regarding her progressive dyspnea. She has been very discouraged as nobody has been able to give her any [id number] answers relating to the underlying etiology. She does have present more acutely today, she very much wants to avoid emergency room and or hospitalization. We did discuss in the context of at least treating her hypoxia, getting a chest x-ray, and I would follow-up with Dr. Jones for further recommendations. She was in agreement. Is discouraged as her GI symptoms have improved, she does feel much better after the fluids, but has not had any significant return to functional status. We have done her POLST as DNA R/selective treatments. She continues to weigh her decisions in the context of benefits and burdens. She has had significant amount of testing particularly in March, with not a lot of positive outcomes or information. But did agree given her acute change in status over the last 24-48 hrs. willing to revisit this. In discussing with patient's recommendations chest xray and Dr. Jones's recommendations, she did agree to ED visit Results - Lab Results Lab results reviewed: Yes Impression and Recommendations - Palliative Care Impression: This is a 69-year-old woman who presents acutely with hypoxia, shortness of breath, and increased weakness. She is feeling better with oxygen, after receiving fluids, and her iron transfusion. Given concerns identified on her chest x-ray, patient was then recommended to return to the ED. Patient continues to have high symptom burden, functional decline, and continued challenges related to her underlying disease process, and pancytopenia. Palliative care to continue to provide support regarding pain and symptom management, advanced care planning, and anticipatory guidance Recommendations/Counseling Done: 1. Dyspnea/hypoxia. Patient evaluated to respiratory therapy, and oxygen ordered through [facility]. Patient was hypoxic at rest, with room air oxygen sats of 86%. At rest on 2 L per nasal cannula her O2 sats improved to 93%, and with ambulation on 2 L her O2 sats were 92%. Her [id number] for oxygen completed and I am ordering home O2 at 2 L per nasal cannula continuously to treat her hypoxia, hx of pnumocystis jiroveci pneumonia infection, Stage IV Mantle Cell Lymphoma, and now with abnormal chest xray. Discussed in the context of comfort, that she can use her morphine 5 to 10 mg every 3-4 hours as needed for respiratory distress. She did find this helpful earlier in the day. Counseling provided also for pacing of activities, and safety. Patient has been sent to the ED for further follow-up and evaluation in addition of a CT angiogram gram of the chest via oncology, CT scan of the chest via radiology. Report called to Dr. Muñoz. 2. Generalized weakness. Patient is scheduled to start physical therapy, patient does have acute process going on but would benefit from continued focus on improving functional status.We will go ahead make referral to [facility], given patient's recent fall and unable to access help. Patient does have a walker, and will need portable oxygen for transport. 3. Depression. Patient is currently on citalopram, we did discuss given her acute changes in her health, the uncertainty that she is experiencing, counseling regarging normalizing feelings of situational grief and loss. Did korina will after we are past this acute crisis, can revisit if she needs her antidepressants titrated and or other support. Will offer the palliative care mental health social worker. Patient's is also getting a work-up, regarding of lung mass. There is lots of uncertainty in their life right now, he is her primary caregiver. 4. Oral candidiasis. Patient did complete her Diflucan with good results, she is now being maintained on nystatin 5 mils twice daily. Recommended she continue as she is still on her steroids. 5. Advanced care planning. Patient does have a POLST in place, her goals are to focus on quality of life, she is still willing to treat reversible conditions weighing benefits and burdens moving forward, spending time with her family, and end of life at home with hospice at that point. She is a DNA R/allow natural and selective treatments. Her D POA is her Eric Vidal [phone], with her Sister Caridad Gregory as back-up [phone]. We will continue to follow given the outcome of her acute symptoms today. Time Spent: 60 minutes with greater than 50% of this done in counseling and coordination of care with respiratory therapy, oncologist, ED, and clinical staff.
== END 2019-05-21 15:29 | disposition home or self-care (01) ==
LOC: DI 15:28
PROVIDERS: ATTEND Nurse Practitioner Adult Health
DX: R09.02 Hypoxemia (principal); R05 Cough
CPT/HCPCS: 71046

== ENCOUNTER 2019-05-21 16:45 | Emergency (ER) | payer MEDICARE, BC ==
[2019-05-21] MEDS ORDERED: IOVERSOL 320 100 ML VIAL IVP ONE ×2 (17:30→17:58)
[2019-05-21 17:53] LABS: MEAN CORPUSCULAR HEMOGLOBIN 34.4 pg (27.0-31.0); MEAN CORPUSCULAR HGB CONC 29.8 g/dL (32.0-36.0); MEAN CORPUSCULAR VOLUME 115.3 fL (81.0-99.0); MEAN PLATELET VOLUME 12.1 fL (7.9-10.8); PLT - PLATELET COUNT 81 10^3/uL (130-450); RED BLOOD COUNT 1.89 10^6/uL (4.20-5.40); RED CELL DISTRIBUTION WIDTH 19.9 % (12.0-15.0)
[2019-05-21 18:03] LABS: ALBUMIN 2.6 g/dL (3.2-5.5); ALBUMIN/GLOBULIN RATIO 0.8 (1.0-2.2); BILIRUBIN,TOTAL 0.9 mg/dL (0.2-1.0); CALCIUM 8.4 mg/dL (8.5-10.3); CREATININE 0.9 mg/dL (0.4-1.0); HGB - HEMOGLOBIN 6.5 g/dL (12.0-16.0); TOTAL PROTEIN 5.8 g/dL (6.7-8.2)
[2019-05-21 18:04] LABS: ABNORMAL LYMPHS % (MANUAL) 0 %
[2019-05-21] MEDS ORDERED: IPRATROPIUM/ALBUTEROL 3 ML NEB INH STA (18:10)
--- NOTE | 2019-05-21 18:24 | ED Physician Documentation ---
History of Present Illness - Stated complaint Stated Complaint: SOA - Chief complaint Chief Complaint: Resp - History obtained from History obtained from: Patient - History of Present Illness Timing: Today Pain level max: 0 Pain level now: 0 - Additonal information Additional information: 69-year-old female with a history of mantle cell lymphoma. She also has been treated for pneumocystis. Is currently on dapsone for that. She became more hypoxic over the past week. Now qualifies for home O2. MAC clinic sent over to rule out PE. 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 Better with rest, worse with movement. No fevers. Review of Systems Constitutional: denies: Fever, Chills Ears: denies: Ear pain Nose: denies: Rhinorrhea / runny nose, Congestion GI: denies: Vomiting Skin: denies: Rash Musculoskeletal: denies: Neck pain, Back pain Neurologic: denies: Headache PD PAST MEDICAL HISTORY - Past Medical History Cardiovascular: None, Murmur Respiratory: None Neuro: None Endocrine/Autoimmune: None GI: GERD, Chronic diarrhea : None HEENT: None Psych: Anxiety Musculoskeletal: None Derm: None Other Past Medical History: cancer, mantel cell - Past Surgical History Past Surgical History: Yes General: Cholecystectomy Ortho: Knee replacement, 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 HEENT: Cataracts, Tonsil/Adenoidectomy - Present Medications Home Medications: Ambulatory Orders Medication Instructions Recorded Confirmed Valacyclovir HCl [Valtrex] 500 mg PO BID 01/02/17 05/21/19 raNITIdine [Zantac] 150 mg PO DAILY 09/17/17 05/21/19 B12/Levomefolate Calcium/B-6 1 tab PO DAILY 12/10/17 05/21/19 [Vspnc-Ufhvdilrin-Gosrufwto Tb] Cholecalciferol (Vitamin D3) 2,000 units PO DAILY 12/10/17 05/21/19 [Vitamin D3] Omeprazole 20 mg PO DAILY 02/23/19 05/21/19 Nystatin Suspension 5 ml ORAL QID PRN 03/16/19 05/21/19 Megestrol Acetate 625 mg PO DAILY 30 Days #150 ml 04/07/19 05/21/19 Loperamide [Imodium] 2 mg PO PRN PRN 04/21/19 05/21/19 Morphine Sulfate 5 - 10 mg PO Q3HR PRN 04/21/19 05/21/19 predniSONE [Prednisone] 30 mg PO DAILYWM 04/21/19 05/21/19 Citalopram [CeleXA] 20 mg PO DAILY 05/11/19 05/21/19 Hydrocortisone 10 mg PO DAILY 05/11/19 05/21/19 Dapsone 50 tab PO BID 05/21/19 05/21/19 - Allergies Allergies/Adverse Reactions: Allergies Allergy/AdvReac Type Severity Reaction Status Date / Time No Known Drug Allergies Allergy Verified 05/21/19 16:58 - Social History Does the pt smoke?: No Smoking Status: Former smoker Does the pt drink ETOH?: Yes Does the pt have substance abuse?: No - Immunizations Immunizations are current?: No Immunizations: TDAP >10years/unknown - POLST Patient has POLST: Yes POLST Status: DNR PD ED PE NORMAL - Vitals Vital signs reviewed: Yes - General General: Alert and oriented X 3, No acute distress - HEENT HEENT: Moist mucous membranes - Neck Neck: Supple, no meningeal sign - Cardiac Cardiac: RRR, Strong equal pulses - Respiratory Respiratory: No respiratory distress, Other (Diminished breath sounds bilaterally) - Abdomen Abdomen: Soft, Non tender, Non distended - Derm Derm: Warm and dry - Extremities Extremities: No edema - Neuro Neuro: Alert and oriented X 3 Results - Vitals Vitals: Vital Signs - 24 hr 05/21/19 05/21/19 05/21/19 16:52 17:43 18:26 Temperature 36.1 C L Heart Rate 99 86 73 Respiratory 26 H 24 18 Rate Blood Pressure 108/66 117/70 O2 Saturation 93 90 L 05/21/19 19:11 Temperature 36.9 C Heart Rate 95 Respiratory 24 Rate Blood Pressure 139/85 H O2 Saturation 93 Oxygen O2 Source Nasal cannula Oxygen Flow Rate 2 - Labs Labs: Laboratory Tests 05/21/19 05/21/19 17:47 17:47 WBC 1.0 L* RBC 1.89 L Hgb 6.5 L* Hct 21.8 L MCV 115.3 H MCH 34.4 H MCHC 29.8 L RDW 19.9 H Plt Count 81 L MPV 12.1 H Neut # (Auto) Not Reportable Lymph # (Auto) Not Reportable Collin # (Auto) Not Reportable Eos # (Auto) Not Reportable Baso # (Auto) Not Reportable Absolute Nucleated RBC Not Reportable Total Counted 100 Band Neuts % (Manual) 22 H Abnorm Lymph % (Manual) 0 Myelocytes % 1 H Nucleated RBC % Not Reportable Neutrophils # (Manual) 0.8 L Lymphocytes # (Manual) 0.1 L Monocytes # (Manual) 0.2 Eosinophils # (Manual) 0.0 Basophils # (Manual) 0.0 Nucleated RBCs 2 Differential Comment MANUAL DIFFERENTIAL Manual Slide Review Indicated WBC Morphology 4+ TOXIC GRANULATION Platelet Estimate DECREASED (<130,000) Platelet Morphology NORMAL APPEARANCE RBC Morph Micro Appear 4+ MACROCYTOSIS Sodium 139 Potassium 3.8 Chloride 103 Carbon Dioxide 22 Anion Gap 14.0 H BUN 19 Creatinine 0.9 Estimated GFR (MDRD) 62 L Glucose 218 H Calcium 8.4 L Total Bilirubin 0.9 AST 19 ALT 27 Alkaline Phosphatase 84 Total Protein 5.8 L Albumin 2.6 L Globulin 3.2 Albumin/Globulin Ratio 0.8 L Lipase 23 - Rads (name of study) CT pulmonary angiogram Radiology: Prelim report reviewed, EMP read contemporaneously, See rad report (No evidence of acute pulmonary embolism. 2. There is no aortic dissection or aneurysm. 3. There is bilateral tree-in-bud nodularity within the lungs which is suspicious for endobronchial infection. 4. There is no pneumothorax. ) PD MEDICAL DECISION MAKING - ED course Complexity details: reviewed results, re-evaluated patient, considered differential, d/w patient, d/w home performance consultant (Dr. Magaña) ED course: 69-year-old female with worsening pancytopenia. Appears to need a blood transfusion. May benefit from pulmonary and infectious disease consultation. I discussed the case with oncology on-call, Dr. Guadalupe. She recommends transfer to [facility] in [place]. The patient adamantly refuses transfer or admission. She states that she does not want any further care at this time. She just wants to go home. She is signed AGAINST MEDICAL ADVICE. She states that she feels that she is done with any treatments and wants to discuss hospice with her palliative care provider and her oncologist. She does have oxygen set up at home for her tonight. Patient informed that she is welcome to return if she changes her mind at any time. This document was made in part using voice recognition software. While efforts are made to proofread this document, sound alike and grammatical errors may occur. Departure - Departure Disposition: 07 Against Medical Advice Clinical Impression: Hypoxia, Pancytopenia Pneumonia Qualifiers: Pneumonia type: due to unspecified organism Laterality: unspecified laterality Lung location: unspecified part of lung Qualified Code(s): J18.9 - Pneumonia, unspecified organism Anemia Qualifiers: Anemia type: unspecified type Qualified Code(s): D64.9 - Anemia, unspecified Condition: Stable Instructions: ED Pneumonia Adult Follow-Up: Valentín Jones MD [Physician No Access] - Valentín Jones MD [Provider Admit Priv/Credential] - Vielka Garcia ARNP [Provider Admit Priv/Credential] - Selena Ely MD [Primary Care Provider] - Comments: You have chosen to leave AGAINST MEDICAL ADVICE today. You are welcome to return at any time should you change your mind. I think you should discuss transitioning to hospice care with Dr. Jones and Vielka Garcia. Discharge Date/Time: 05/21/19 19:42
[2019-05-21 18:32] LABS: BAND NEUTROPHILS % (MANUAL) 22 %; LYMPHOCYTES # (MANUAL) 0.1 10^3/uL (1.5-3.5); LYMPHOCYTES % (MANUAL) 7 %; MONOCYTES # (MANUAL) 0.2 10^3/uL (0.0-1.0); MYELOCYTES % (MANUAL) 1 %
[2019-05-21 18:33] LABS: PLATELET ESTIMATE, MANUAL DECREASED (<130,000) (NORMAL); PLATELET MORPHOLOGY NORMAL APPEARANCE (NORMAL)
[2019-05-21 18:34] LABS: DIFFERENTIAL COMMENT MANUAL DIFFERENTIAL
--- NOTE | 2019-05-21 18:38 | CT Report ---
Reason: persistent soa Procedure Date: 05/21/2019 Accession Number: [id number] / [id number] Procedure: CT - ANGIO CHEST W/WO CPT Code: FULL RESULT: EXAM: CT ANGIOGRAM CHEST EXAM DATE: 05/21/2019 05:52 PM. CLINICAL HISTORY: Dyspnea. COMPARISON: CHEST W/ 05/06/2018 1:13 PM ABDOMEN/PELVIS W/ 02/04/2019 12:44 PM. TECHNIQUE: Routine helical imaging was performed through the chest in the pulmonary arterial phase. IV Contrast: OPTI 320 80ML. Reconstructions: Coronal 3-D MIP reconstructions.Sagittal and coronal. In accordance with CT protocol optimization, one or more of the following dose reduction techniques were utilized for this exam: automated exposure control, adjustment of mA and/or KV based on patient size, or use of iterative reconstructive technique. FINDINGS: Pulmonary Arteries: Diagnostic quality: Adequate through the segmental arteries. No evidence for acute or chronic pulmonary emboli. RV/LV is within normal limits. There is no interventricular septal bowing. There is no reflux of contrast material in the IVC. Lungs/Pleura: There is bilateral tree-in-bud nodularity within the lungs. There is some areas of more focal patchy consolidation. There is mild bibasilar atelectasis. No pleural effusion. There is no evidence of pneumothorax. Mediastinum: Heart size is within normal limits. There are no enlarged axillary, supraclavicular, mediastinal, or hilar lymph nodes. Thoracic Aorta: Unremarkable. Upper Abdomen: Unremarkable. Other: None. IMPRESSION: 1. No evidence of acute pulmonary embolism. 2. There is no aortic dissection or aneurysm. 3. There is bilateral tree-in-bud nodularity within the lungs which is suspicious for endobronchial infection. 4. There is no pneumothorax. RADIA
[2019-05-21 19:15] VITALS: BP 139/85
--- NOTE | 2019-05-22 08:47 | CONSULTATION NOTE ---
Palliative Care Follow Up - Referral Referring Provider: Dr. Valentín Jones Time of Visit: [id number] [place] [facility] [place] Reason: Hypoxia/Stage IV Mantle Cell Lymphoma - Information Sources Records reviewed: Previous records reviewed History/Review of Systems obtained from: Patient Exam limitations: No limitations - History of Present Illness Update Brief HPI Update: This is a [place] 69-year-old woman has a history of mantle cell lymphoma and involving the colon, spleen, and nodes. She does have a history of autologous stem cell transplant in June 2017. She has been having progressive shortness of breath, limiting as far as ambulation, activity tolerance, and significant impact on her quality of life. She had a recent stay at [facility] and 03/2019 was seen both by pulmonology and infectious disease unable to find the etiology, they did discontinue her Bactrim. 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 She is currently on dapsone 50 mg p.o. twice daily for prophylaxis. She is discontinued off the Bactrim because she was having severe GI symptoms including ulceration of the mouth, soreness, abdominal pain and cramping, and severe diarrhea. This is been slowly resolving, she is only had intermittent abdominal pain. Patient has been having worsening anemia, signs of the hemolysis, neutropenia of unclear etiology. She is currently on prednisone she is been tapered down to 30 mg, she does present with somewhat of a villalpando face. Today she presents in severe respiratory compromise, she is hypoxic at rest with room air O2 sats of 86%. She reports it was worsening this morning about 84% was having trouble keeping it up. I did have them put 2 L of oxygen on her by nasal cannula with her sats improved to 93%, with ambulation on 2 L her O2 sats were 92%. She did feel much better. She reports she has had a dry nonproductive cough for about a week and a half, she has been feeling much more weak, including a fall for which she was on the floor for about an hour and a half. She has been eating much better, except for the last 2 days. She is feeling quite discouraged. She is very much hoping to avoid an emergency room visit and or hospitalization. We agreed to order home oxygen and try a chest x- ray to rule out pneumonia. She did feel better after her IV fluids and her iron transfusion, she was much more bit able to ambulate, her dyspnea was improved on the oxygen. Her underlying respiratory rate is about 20, she is breathing much easier on the oxygen. She does have decreased breath sounds in the bases, no wheezing, crackles, or rhonchi. Unfortunately her chest x-ray did show an impression of a curvilinear opacity in the right lung, with concern in the clinical setting of a compromised immune status this could represent opportunistic infection and concern for recurrent pneumocystis. Recommended further evaluation by noncontrast chest CT. I did call Dr. Jones her oncologist, given patient's history, and her shortness of breath, he would like actually to have a CT scan of angiogram done of the chest, to rule out any pulmonary emboli as she is at high risk with her underlying diagnoses. Also, if concerns may need transfer to [place]. In conversation with patient, she did agree actually to further follow-up, recognizing again this is doing quite frustrating for her to not have any underlying etiology for her ongoing difficulties with breathlessness, needing recurrent hydration, ongoing functional decline, now with increasing symptom burden. Social History - Living Situation Living arrangement: At home Living Situation: With spouse/s.o. Support System: Patient lives at home with her who is been having ongoing health problems as well. They have been for over 40 years, she also has a sister whom she is quite close to and is very supportive of her patient. They live very close here to the hospital, in their own home. Medications/Allergies - Medications Home Medications: Ambulatory Orders Medication Instructions Recorded Confirmed Valacyclovir HCl [Valtrex] 500 mg PO BID 01/02/17 05/21/19 raNITIdine [Zantac] 150 mg PO DAILY 09/17/17 05/21/19 B12/Levomefolate Calcium/B-6 1 tab PO DAILY 12/10/17 05/21/19 [Alcfy-Rjuvostrxc-Hdttjlkho Tb] Cholecalciferol (Vitamin D3) 2,000 units PO DAILY 12/10/17 05/21/19 [Vitamin D3] Omeprazole 20 mg PO DAILY 02/23/19 05/21/19 Nystatin Suspension 5 ml ORAL QID PRN 03/16/19 05/21/19 Megestrol Acetate 625 mg PO DAILY 30 Days #150 ml 04/07/19 05/21/19 Loperamide [Imodium] 2 mg PO PRN PRN 04/21/19 05/21/19 Morphine Sulfate 5 - 10 mg PO Q3HR PRN 04/21/19 05/21/19 predniSONE [Prednisone] 30 mg PO DAILYWM 04/21/19 05/21/19 Citalopram [CeleXA] 20 mg PO DAILY 05/11/19 05/21/19 Hydrocortisone 10 mg PO DAILY 05/11/19 05/21/19 Dapsone 50 tab PO BID 05/21/19 05/21/19 - Allergies Allergies/Adverse Reactions: Allergies Allergy/AdvReac Type Severity Reaction Status Date / Time No Known Drug Allergies Allergy Verified 05/21/19 16:58 Review of Systems - Constitutional Constitutional: reports: Fatigue, Weakness, Poor appetite (for two days; had been improving). denies: Fever, Chills - Ears, Nose & Throat Ears, Nose & Throat: reports: Dry mouth. denies: Mouth lesions (resolved) - Cardiovascular Cardiovascular: reports: Exertional dyspnea, Decr. exercise tolerance - Respiratory Respiratory: reports: Cough (dry for 1 1/2 week) - Gastrointestinal Gastrointestinal: reports: Abdominal pain (improved but did need to take MS last night), Nausea (intermittent), Poor appetite, Early satiety. denies: Diarrhea - Musculoskeletal Musculoskeletal: reports: Muscle weakness, Assistive devices (using walker), Other (had fall yesterday; down for over an hour; agreed to [facility]) - Integumentary Integumentary: reports: Dryness - Neurological Neurological: reports: General weakness - Psychiatric Psychiatric: reports: Depression, Anxiety - Hematologic/Lymphatic Hematologic/Lymphatic: reports: Anemia, Bruising - All Other Systems All Other Systems: reports: Reviewed and negative Physical Exam - Vital Signs Temperature: 36.7 C Pulse Rate: 86 Respiratory Rate: 22 Blood Pressure: 103/64 (sitting; 82/48 laying) - Physical Exam General Appearance: positive: Alert, Moderate distress, Other (mild cushings noted) ENT: positive: Other (candidiasis improved; only slight white coating; ulcer healed) Neck: positive: No JVD, Trachea midline Cardiovascular: positive: Regular rate & rhythm Respiratory: positive: Diminished in bases, Other (patient with respiratory effort;). negative: Wheezes, Rales, Rhonchi Abdomen: positive: Soft, Nml bowel sounds, Distended Skin: positive: Pallor, Bruising (upper arims) Extremities: positive: No pedal edema Neurologic/Psychiatric: positive: Oriented x3, Weakness, Depressed mood/affect, Flat affect Palliative Care - POLST Patient has POLST: Yes POLST Status: DNR, Selective Treatment Pain: Pain improved, Location (lower abdominal) Tiredness/Fatigue: Severe (7-10) Drowsiness/Sedation: Severe (7-10) Nausea: Moderate (4-6) Depression: Severe (7-10) Anxiety: Severe (7-10) Dyspnea: Severe (7-10), Comment (patient did use some MS with some relief of distress) Anorexia: Moderate (4-6) Sleep: Variable sleep pattern Constipation: No Feelings of wellbeing/Perceived Quality of Life: Poor, Worsening Performance Status: Patient continues to decline functionally, much more weaker. She did have a fall was unable to get up off the ground. She gets severely dyspneic with raising her arms and any kind of showering. 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 She is quite befuddled by her rapid decline in her functional status since January as she was showing dogs and able to play pickle ball. - Palliative Care Discussion: Patient is somewhat distressed and anxious regarding her progressive dyspnea. She has been very discouraged as nobody has been able to give her any [id number] answers relating to the underlying etiology. She does have present more acutely today, she very much wants to avoid emergency room and or hospitalization. We did discuss in the context of at least treating her hypoxia, getting a chest x-ray, and I would follow-up with Dr. Jones for further recommendations. She was in agreement. Is discouraged as her GI symptoms have improved, she does feel much better after the fluids, but has not had any significant return to functional status. We have done her POLST as DNA R/selective treatments. She continues to weigh her decisions in the context of benefits and burdens. She has had significant amount of testing particularly in March, with not a lot of positive outcomes or information. But did agree given her acute change in status over the last 24-48 hrs. willing to revisit this. In discussing with patient's recommendations chest xray and Dr. Jones's recommendations, she did agree to ED visit Results - Lab Results Lab results reviewed: Yes Ephraim Bones: 05/21/19 17:47 05/21/19 17:47 Impression and Recommendations - Palliative Care Impression: This is a 69-year-old woman who presents acutely with hypoxia, shortness of breath, and increased weakness. She is feeling better with oxygen, after receiving fluids, and her iron transfusion. Given concerns identified on her chest x-ray, patient was then recommended to return to the ED. Patient continues to have high symptom burden, functional decline, and continued challenges related to her underlying disease process, and pancytopenia. Palliative care to continue to provide support regarding pain and symptom management, advanced care planning, and anticipatory guidance Recommendations/Counseling Done: 1. Dyspnea/hypoxia. Patient evaluated to respiratory therapy, and oxygen o rdered through [facility]. Patient was hypoxic at rest, with room air oxygen sats of 86%. At rest on 2 L per nasal cannula her O2 sats improved to 93%, and with ambulation on 2 L her O2 sats were 92%. Her [id number] for oxygen completed and I am ordering home O2 at 2 L per nasal cannula continuously to treat her hypoxia, hx of pnumocystis jiroveci pneumonia infection, Stage IV Mantle Cell Lymphoma, and now with abnormal chest xray. Discussed in the context of comfort, that she can use her morphine 5 to 10 mg every 3-4 hours as needed for respiratory distress. She did find this helpful e arlier in the day. Counseling provided also for pacing of activities, and safety. Patient has been sent to the ED for further follow-up and evaluation in addition of a CT angiogram gram of the chest via oncology, CT scan of the chest via radiology. Report called to Dr. Muñoz. 2. Generalized weakness. Patient is scheduled to start physical therapy, patient does have acute process going on but would benefit from continued focus on improving functional status.We will go ahead make referral to [facility], given patient's recent fall and unable to access help. Patient does have a walker, a nd will need portable oxygen for transport. 3. Depression. Patient is currently on citalopram, we did discuss given her acute changes in her health, the uncertainty that she is experiencing, staff counselor ing regarging normalizing feelings of situational grief and loss. Did discuss after we are past this acute crisis, can revisit if she needs her antidepressants titrated and or other support. Will offer the palliative care social media specialist. Patient's is also getting a work-up, regarding of lung mass. There is lots of uncertainty in their life right now, he is her primary caregiver. 4. Oral candidiasis. Patient did complete her Diflucan with good results, she is now being maintained on nystatin 5 mils twice daily. Recommended she continue as she is still on her steroids. 5. Advanced care planning. Patient does have a POLST in place, her goals are to focus on quality of life, she is still willing to treat reversible conditions weighing benefits and burdens moving forward, spending time with her family, and end of life at home with hospice at that point. She is a DNA R/allow natural and selective treatments. Her D POA is her Eric Vidal [phone], with her Sister Caridad Gregory as back-up [phone]. We will continue to follow given the outcome of her acute symptoms today. Time Spent: 60 minutes with greater than 50% of this done in counseling and coordination of care with respiratory therapy, oncologist, ED, and clinical staff.
== END 2019-05-21 19:42 | disposition left against medical advice (07) ==
LOC: ED 16:45
DX: R09.02 Hypoxemia (principal); D61.818 Other pancytopenia; J18.9 Pneumonia, unspecified organism; D64.9 Anemia, unspecified; B59 Pneumocystosis; C83.10 Mantle cell lymphoma, unspecified site; Z87.891 Personal history of nicotine dependence; Z53.29 Procedure and treatment not carried out because of patient's decision for other reasons; Z79.899 Other long term (current) drug therapy
CPT/HCPCS: 71275; 80053; 83690; 85025; 94640; 94761; 99284; Q9967

== ENCOUNTER 2019-05-25 10:34 | Outpatient (CLI) | payer MEDICARE, BC ==
--- NOTE | 2019-05-25 12:09 | CONSULTATION NOTE ---
Palliative Care Follow Up - Referral Referring Provider: Dr. Valentín Jones Time of Visit: [id number] Referral setting: [facility] – [place] Referral Reason: Pancytopenia/Stage IV Mantle Cell Lymphoma - Information Sources Records reviewed: Previous records reviewed History/Review of Systems obtained from: Patient Exam limitations: No limitations - History of Present Illness Update Brief HPI Update: Is a [place] 69 woman who goes by the name of "Collins" who has a history of Stage IV Mantle Cell Lymphoma involving the colon, spleen, and nodes. She has a history of autologous stem cell transplant in June 2017, and a history of pneumocystis jiroveci pneumonia. She has had a significant year of increasing symptoms, including GI, with inflammation and ulceration in the ascending colon, thought to be Bactrim toxicity, is currently on a prednisone taper with 20 mg. She has had her diarrhea finally resolved, and her ulcers in her mouth and candidiasis is improved. Of what is been most significant is her ongoing pancytopenia, with concern for perhaps recurrent disease or infection in her bone marrow, and she presented on with increasing shortness of breath, hypoxia, and cough for 1 and half weeks. She was sent to the ED, was found to have a suspicious chest x-ray, and concern for possible PE given her level of breathlessness. Her CT scan is suspicious for further infection, but would need further work-up including bronchoscopy and lavage, and patient is not interested in pursuing further treatment or work-up. She will receive a Z-Kritsian from Dr. Jones today. She had left AMA from the ED 05/21, including choosing no further transfusion until today, her hemoglobin has remained steady at 6.5. She will be receiving 2 units. Patient was given the option of further aggressive work-up, transfer to the hospital, and seeing specialist. She had undergone a similar work-up in March at [facility], and is not interested in pursuing further treatment. Dr. Jones did give her a prognosis of 3 months when he was asked. Patient reports she is continued to have severe cough, she did take a total of 18 mg this morning to get under control of morphine. She has a 10 mg/5 mill concentration at home, and enough to last at least a couple days. She does report the morphine helps both with her breathlessness and cough. She is been extremely weak, sleeping quite a bit, I did get her oxygen last time, remains quite breathless at rest, hypoxic off of the oxygen, and with effort even on oxygen drops into the high 80s. Discussing patient's goals of care, she does not want further work-up, she actually had her mother on hospice last year but only for 5 days for pancreatic cancer. She has not shared much with her family, about her decision to transition to hospice. She reports her is aware, though is unclear if he understands implications regarding this. We did redo her POLST with a focus on comfort, she is feeling okay about her decision and feels like she understands her choices at this point. Social History - Living Situation Living arrangement: At home Living Situation: With spouse/s.o. Support System: Her son does live across the street, though is not involved in her care. Her sister is quite supportive, she reports that they do talk quite a bit and I knew that "she is giving up". She says she is not quite as excepting. 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 Medications/Allergies - Medications Home Medications: Ambulatory Orders Medication Instructions Recorded Confirmed Valacyclovir HCl [Valtrex] 500 mg PO BID 01/02/17 05/25/19 raNITIdine [Zantac] 150 mg PO DAILY 09/17/17 05/25/19 B12/Levomefolate Calcium/B-6 1 tab PO DAILY 12/10/17 05/25/19 [Fhvty-Fmtmslvtfh-Lfafgjdoi Tb] Cholecalciferol (Vitamin D3) 2,000 units PO DAILY 12/10/17 05/25/19 [Vitamin D3] Omeprazole 20 mg PO DAILY 02/23/19 05/25/19 Nystatin Suspension 5 ml ORAL QID PRN 03/16/19 05/25/19 Megestrol Acetate 625 mg PO DAILY 30 Days #150 ml 04/07/19 05/25/19 Loperamide [Imodium] 2 mg PO PRN PRN 04/21/19 05/25/19 Morphine Sulfate 5 - 15 mg PO Q3HR PRN 04/21/19 05/25/19 predniSONE [Prednisone] 20 mg PO DAILYWM 04/21/19 05/25/19 Citalopram [CeleXA] 20 mg PO DAILY 05/11/19 05/25/19 Hydrocortisone 10 mg PO DAILY 05/11/19 05/25/19 Dapsone 50 tab PO BID 05/21/19 05/25/19 Azithromycin [Zithromax] 250 mg PO . 500 MG X1, 250 MG 05/25/19 05/25/19 - Allergies Allergies/Adverse Reactions: Allergies Allergy/AdvReac Type Severity Reaction Status Date / Time No Known Drug Allergies Allergy Verified 05/25/19 10:14 Review of Systems - Constitutional Constitutional: reports: Fatigue, Weakness, Poor appetite. denies: Fever, Chills - Eyes Eyes: reports: Vision loss, Corrective lenses - Ears, Nose & Throat Ears, Nose & Throat: reports: Nasal congestion - Cardiovascular Cardiovascular: reports: Exertional dyspnea, Decr. exercise tolerance, Orthopnea - Respiratory Respiratory: reports: Cough (increasing in severity), SOB at rest, SOB with exertion - Gastrointestinal Gastrointestinal: reports: Poor appetite, Early satiety. denies: Diarrhea, Reflux/heartburn - Musculoskeletal Musculoskeletal: reports: Muscle weakness - Integumentary Integumentary: reports: Dryness - Neurological Neurological: reports: General weakness - Psychiatric Psychiatric: reports: Depression, Anxiety - Hematologic/Lymphatic Hematologic/Lymphatic: reports: Anemia (getting two units of blood today), Recurrent infections - All Other Systems All Other Systems: reports: Reviewed and negative Physical Exam - Vital Signs Temperature: 36.9 C Pulse Rate: 88 Respiratory Rate: 22 O2 Saturation: 87 (2 liters ) Blood Pressure: 96/54 - Physical Exam General Appearance: positive: Mild distress, Other (moonfaced) Eyes Bilateral: positive: Normal inspection ENT: positive: Other (slight white coating on elsie) Neck: positive: Trachea midline Cardiovascular: positive: Tachycardia Respiratory: positive: Diminished throughout. negative: Wheezes Abdomen: positive: Soft Skin: positive: Pallor Extremities: positive: No pedal edema Neurologic/Psychiatric: positive: Oriented x3, Weakness, Depressed mood/affect, Flat affect Palliative Care - POLST Patient has POLST: Yes POLST Status: DNR, Comfort Measures (Redid POLST today) Pain: Location (abdominal intermittent), Severity (5/10) Tiredness/Fatigue: Severe (7-10) Drowsiness/Sedation: Severe (7-10) (reports slept most of yesterday and through the night) Nausea: None Depression: Severe (7-10) Anxiety: Moderate (4-6) Dyspnea: Severe (7-10) Anorexia: Moderate (4-6) Sleep: Sleeps poorly Constipation: No Feelings of wellbeing/Perceived Quality of Life: Poor, Worsening Performance Status: Patient at baseline with her significant dyspnea had been ambulating only short distances with a walker, currently she needs a wheelchair to get from place to place. She is quite weak, needing assistance at home. Will benefit greatly from further evaluation of her equipment needs as well as bathing support from hospice. - Palliative Care Discussion: Sent in on part of conversation with oncologist, patient was fairly consistent in her messaging that she wanted no further work-up or intervention. She did ask about prognosis, he gave her 3 months or less. We did discuss in the context of goalsetting, that we would hope for the best but also recommended to prepare for the worse, if there is any things that she needs to wrap-up or address with friends family are legally would recommend to get working on that sooner than later. The goal today is to hopefully she will improve from transfusion, but she does have ongoing fairly rapid decline both related to her pancytopenia and most likely underlying infectious process. Patient does admit to some fearfulness, but it is pretty consistent that she is ready to make this transition. She is feeling quite overwhelmed by her declining quality of life, and the many losses she is experienced. She recognizes even if she did go for aggressive measures, the outcome would most likely not be any different than last time. She has had some experience with hospice, she did take care of her mother at home but she in 5 days with pancreatic cancer. Counseling provided regarding the goals of hospice to focus on comfort, redid POLST to reflect current decision. Patient feels like she is doing okay, and is somewhat resigned to her current situation. Results - Lab Results Lab results reviewed: Yes Impression and Recommendations - Palliative Care Impression: This is a 69-year-old woman who continues with respiratory failure, dyspnea, and ongoing weakness. She has not had a further drop in her counts, but is severely pancytopenic. She will be receiving 2 units of packed red blood cells today. Plan is to admit her to hospice tomorrow. Palliative care providing anticipatory guidance and support and transition. Recommendations/Counseling Done: 1. Dyspnea. This is multifactorial in origin. We did review the use of the morphine on a regular basis for management of her shortness of breath, cough, and respiratory distress. She will be initiating care with hospice tomorrow, she does have some morphine left, we did discuss she would be getting a more concentrated form which would be easier to take. Her is worried about her taking the morphine, education provided to her regarding how it works for dyspnea and cough suppression. Will communicate to the hospice team, patient is concerned and need for education for and support. Patient currently has oxygen on at 2 L, she is sitting right between 87 and 90%, hopefully with her transfusion this will improve. She may need her liter flow higher if not. 2. Generalized weakness. This is multifactorial as well. Patient reports she "loves my bed", but did realize it was much easier for taking care of her mom to have a hospital bed. We agreed hospice nurse can evaluate at time of visit tomorrow, she will ask her if he thinks it might be of benefit. Patient will benefit from bathing assist, patient has had recurrent hypotension and dehydration, she has been receiving twice weekly hydration. 3. Respiratory infection. Patient does have diffuse interstitial changes in her lung on CT scan, she has declined further work-up. She will get a trial of azithromycin, she is allergic to quinolones. 4. Ulceration in mouth,: Since 2019, with resolving abdominal pain and diarrhea. She has been instructed to decrease her prednisone to 20 mg a day, Dr. Jones recommended further decrease to 10 mg next week and for maintenance. 5 Advanced care planning. POLST was updated to reflect patient's current goals. Patient has showed dogs, wants to spend time with family, and is ready to transition to hospice. Dr. Jones will make the formal referral. Counseling provided regarding hospice benefit, transition plan, and defining goals of care. Time Spent: See minutes with greater than 50% of this done in counseling regarding goals of care, coordination regarding oncology and hospice, as well as anticipatory guidance
== END 2019-05-25 10:35 | disposition home or self-care (01) ==
LOC: PC 10:34
PROVIDERS: ATTEND Nurse Practitioner Adult Health
DX: Z51.5 Encounter for palliative care (principal); C83.18 Mantle cell lymphoma, lymph nodes of multiple sites; J18.9 Pneumonia, unspecified organism; J96.90 Respiratory failure, unspecified, unspecified whether with hypoxia or hypercapnia; D64.9 Anemia, unspecified; R53.1 Weakness; E86.0 Dehydration; K13.79 Other lesions of oral mucosa; H54.7 Unspecified visual loss; Z94.84 Stem cells transplant status; Z66 Do not resuscitate; Z87.01 Personal history of pneumonia (recurrent); Z79.51 Long term (current) use of inhaled steroids; Z79.891 Long term (current) use of opiate analgesic; Z79.52 Long term (current) use of systemic steroids
CPT/HCPCS: 99215